=== PATIENT | female | born 1935 | race Caucasian/White ===

== ENCOUNTER 2016-06-28 15:32 | Emergency (ER) | payer MEDICARE, BC ==
[~2016-06-28] VITALS: Ht 160 cm; Wt 72.6 kg
--- NOTE | 2016-06-28 16:46 | ED.ADGEN ---
Past Medical History Past Medical History: Dementia, Hypertension, Other Additional Past Medical Histor: shingles 06/27 Past Surgical History: Cholecystectomy Alcohol Use: None Drug Use: None Adult General Chief Complaint Chief Complaint: HEAT EXPOSURE HPI HPI Patient is a 80 year old female presents emergency department by EMS accompanied by her . Patient was out shopping when she got overheated and felt lightheaded. Bystanders helped her to sit down and suggested that her called ambulance. Her states that she has dementia and consequently he provided most the history. At this time, she is at her baseline mental status and has no complaints. Of note, the patient has only had a cupcake and a cookie to eat by 4:30 PM in the day. Review of Systems Review of Systems Constitutional: Denies fever or chills. [] Eyes: Denies change in visual acuity. [] HENT: Denies nasal congestion or sore throat. [] Respiratory: Denies cough or shortness of breath. [] Cardiovascular: Denies chest pain or edema. [] GI: Denies abdominal pain, nausea, vomiting, bloody stools or diarrhea. [] : Denies dysuria. [] Musculoskeletal: Denies back pain or joint pain. [] Integument: Denies rash. [] Neurologic: Denies headache, focal weakness or sensory changes. [] Endocrine: Denies polyuria or polydipsia. [] Lymphatic: Denies swollen glands. [] Psychiatric: Denies depression or anxiety. [] Allergies Allergies Allergies Coded Allergies Type Severity Reaction Last Updated Verified iodine Allergy Intermediate 06/28/16 Yes Physical Exam Physical Exam Constitutional: Well developed, well nourished, no acute distress, non-toxic appearance. [] HENT: Normocephalic, atraumatic, bilateral external ears normal, oropharynx moist, no oral exudates, nose normal. [] Eyes: PERRLA, EOMI, conjunctiva normal, no discharge. [] Neck: Normal range of motion, no tenderness, supple, no stridor. [] Cardiovascular:Heart rate regular rhythm, no murmur [] Lungs & Thorax: Bilateral breath sounds clear to auscultation [] Abdomen: Bowel sounds normal, soft, no tenderness, no masses, no pulsatile masses. [] Skin: Warm, dry, no erythema, no rash. [] Back: No tenderness, no CVA tenderness. [] Extremities: No tenderness, no cyanosis, no clubbing, ROM intact, no edema. [] Neurologic: Alert and oriented X 2, normal motor function, normal sensory function, no focal deficits noted. [] Psychologic: Affect normal, judgement normal, mood normal. [] Current Patient Data Vital Signs Vital Signs Date Time Temp Pulse Resp B/P Pulse Ox O2 Delivery O2 Flow Rate FiO2 06/28/16 18:30 74 20 142/65 94 06/28/16 15:46 98.9 Room Air 98.9 Lab Values Laboratory Tests Test 06/28/16 16:55 06/28/16 18:17 White Blood Count 11.8x10^3/uL (4.0-11.0) H Red Blood Count 3.92x10^6/uL (3.50-5.40) Hemoglobin 12.3g/dL (12.0-15.5) Hematocrit 37.0% (36.0-47.0) Mean Corpuscular Volume 94fL (79-100) Mean Corpuscular Hemoglobin 31pg (25-35) Mean Corpuscular Hemoglobin Concent 33g/dL (31-37) Red Cell Distribution Width 13.3% (11.5-14.5) Platelet Count 250x10^3/uL (140-400) Neutrophils (%) (Auto) 86% (31-73) H Lymphocytes (%) (Auto) 8% (24-48) L Monocytes (%) (Auto) 4% (0-9) Eosinophils (%) (Auto) 1% (0-3) Basophils (%) (Auto) 1% (0-3) Neutrophils # (Auto) 10.2x10^3uL (1.8-7.7) H Lymphocytes # (Auto) 0.9x10^3/uL (1.0-4.8) L Monocytes # (Auto) 0.5x10^3/uL (0.0-1.1) Eosinophils # (Auto) 0.1x10^3/uL (0.0-0.7) Basophils # (Auto) 0.1x10^3/uL (0.0-0.2) Segmented Neutrophils % 89% (35-66) H Band Neutrophils % 2% (0-9) Lymphocytes % 3% (24-48) L Monocytes % 4% (0-10) Eosinophils % 1% (0-5) Basophils % 1% (0-3) Toxic Granulation Slight Platelet Estimate Adequate (ADEQUATE) Sodium Level 144mmol/L (136-145) Potassium Level 4.6mmol/L (3.5-5.1) Chloride Level 107mmol/L (98-107) Carbon Dioxide Level 26mmol/L (21-32) Anion Gap 11 (6-14) Blood Urea Nitrogen 29mg/dL (7-20) H Creatinine 1.7mg/dL (0.6-1.0) H Estimated GFR (Cockcroft-Gault) 28.8 Glucose Level 123mg/dL (70-99) H Calcium Level 9.6mg/dL (8.5-10.1) Troponin I Quantitative < 0.017ng/mL (0.000-0.055) Urine Collection Type Void Urine Color Yellow Urine Clarity Clear Urine pH 5.5 Urine Specific [place] 1.015 Urine Protein Negativemg/dL (NEG-TRACE) Urine Glucose (UA) Negativemg/dL (NEG) Urine Ketones (Stick) Negativemg/dL (NEG) Urine Blood Negative (NEG) Urine Nitrite Negative (NEG) Urine Bilirubin Negative (NEG) Urine Urobilinogen Dipstick 1.0mg/dL (0.2 mg/dL) Urine Leukocyte Esterase Moderate (NEG) Urine RBC 0/HPF (0-2) Urine WBC 5-10/HPF (0-4) Urine Squamous Epithelial Cells Mod/LPF Urine Bacteria Few/HPF (0-FEW) Urine Hyaline Casts Few/HPF Urine Mucus Mod/LPF Laboratory Tests 06/28/16 16:55 Laboratory Tests 06/28/16 16:55 EKG EKG EKG interpreted by me, normal sinus rhythm, 70 bpm, left axis deviation, no ST segment elevation. [] Radiology/Procedures Radiology/Procedures Chest x-ray interpreted by me, no acute cardiopulmonary process. INDICATION: 80-year-old female with altered mental status, history of dimension hypertension. COMPARISON: None TECHNIQUE: Axial, noncontrast CT images obtained through the head. One or more of the following individualized dose reduction techniques were utilized for this examination: 1. Automated exposure control; 2. Adjustment of the mA and/or kV according to patient size; 3. Use of iterative reconstruction technique. FINDINGS: No acute intracranial process is identified, specifically no acute blood products, midline shift, mass effect or extra-axial fluid collections. Ventricles and sulci appear appropriate for patient's age. Basilar cisterns are maintained. Scattered periventricular and subcortical white matter low attenuation is nonspecific although likely sequelae of chronic microvascular ischemia. The visualized paranasal sinuses are clear. Mastoid air cells are clear. No calvarial fracture is present. Overlying scalp is intact. IMPRESSION: No acute intracranial process. Findings suggestive of chronic microvascular ischemia. Electronically signed by: Lionel Tinoco (Jun 28, 2016 17:19:01) DICTATED and SIGNED BY: LIONEL TINOCO MD DATE: 06/28/16 2379 CC: LIUDMILA HALEY MD; RICHARD UMAÑA MD ~[] Course & Med Decision Making Course & Med Decision Making Pertinent Labs and Imaging studies reviewed. (See chart for details) After eating a meal tray the patient is significantly improved. She was found to have a minor urinary tract infection for which we will treat with Bactrim. Patient was given supportive care instructions, follow-up directions, and return precautions. [] Dragon Disclaimer Dragon Disclaimer This electronic medical record was generated, in whole or in part, using a voice recognition dictation system. LIUDMILA HALEY MD Jun 28, 2016 16:46
[2016-06-28 17:05] LABS: BASO # 0.1 x10^3/uL (0.0-0.2); BASO % 1 % (0-3); EOS % 1 % (0-3); HEMOGLOBIN 12.3 g/dL (12.0-15.5); LYMPH # 0.9 x10^3/uL (1.0-4.8); LYMPH % 8 % (24-48); MEAN CORPUSCULAR HEMOGLOBIN 31 pg (25-35); MEAN CORPUSCULAR HGB CONC 33 g/dL (31-37); MEAN CORPUSCULAR VOLUME 94 fL (79-100); MONO % 4 % (0-9); NEUT % 86 % (31-73); PLATELET COUNT 250 x10^3/uL (140-400); RED BLOOD COUNT 3.92 x10^6/uL (3.50-5.40); RED CELL DISTRIBUTION WIDTH 13.3 % (11.5-14.5); WHITE BLOOD COUNT 11.8 x10^3/uL (4.0-11.0)
[2016-06-28 17:18] LABS: CALCIUM 9.6 mg/dL (8.5-10.1); CREATININE 1.7 mg/dL (0.6-1.0); GFR 28.8; POTASSIUM 4.6 mmol/L (3.5-5.1)
--- NOTE | 2016-06-28 17:20 | RAD ---
INDICATION: 80-year-old female with altered mental status, history of dimension hypertension. COMPARISON: None TECHNIQUE: Axial, noncontrast CT images obtained through the head. One or more of the following individualized dose reduction techniques were utilized for this examination: 1. Automated exposure control; 2. Adjustment of the mA and/or kV according to patient size; 3. Use of iterative reconstruction technique. FINDINGS: No acute intracranial process is identified, specifically no acute blood products, midline shift, mass effect or extra-axial fluid collections. Ventricles and sulci appear appropriate for patient's age. Basilar cisterns are maintained. Scattered periventricular and subcortical white matter low attenuation is nonspecific although likely sequelae of chronic microvascular ischemia. The visualized paranasal sinuses are clear. Mastoid air cells are clear. No calvarial fracture is present. Overlying scalp is intact. IMPRESSION: No acute intracranial process. Findings suggestive of chronic microvascular ischemia. Electronically signed by: Theresa Ledesma (Jun 28, 2016 17:19:01)
[2016-06-28 17:38] LABS: % BASOS 1 % (0-3); % EOS 1 % (0-5)
[2016-06-28 17:42] LABS: PLT ESTIMATE ADEQUATE (ADEQUATE); TOXIC GRANULATION SLIGHT
[2016-06-28 18:27] LABS: BILIRUBIN,URINE NEGATIVE (NEG); GLUCOSE,URINE NEGATIVE (NEG); NITRITE,URINE NEGATIVE (NEG); PH,URINE 5.5; PROTEIN,URINE NEGATIVE (NEG-TRACE)
[2016-06-28 18:30] VITALS: BP 142/65
[2016-06-28 18:36] LABS: BACTERIA,URINE FEW /HPF (0-FEW); RBC,URINE 0 /HPF (0-2)
[2016-06-28 18:37] LABS: SQUAMOUS EPITHELIAL CELL,UR MOD /LPF
[2016-06-28] MEDS ORDERED: SULF1TAB24 PO (18:57)
--- NOTE | 2016-06-29 09:04 | RAD ---
Indication: Altered mental status. Technique: Portable chest radiograph was obtained upright. No comparison is available. Findings: There is elevation of the right hemidiaphragm. The lungs are clear. The heart is not enlarged and there is no heart failure. There are clips in the right upper abdomen. Leads overlie the patient. Impression: Elevated right hemidiaphragm.
--- NOTE | 2016-06-29 11:14 | EKG ---
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
== END 2016-06-28 19:11 | disposition home or self-care (01) ==
LOC: ER 15:32
DX: N39.0 Urinary tract infection, site not specified (principal); R41.82 Altered mental status, unspecified; F03.90 Unspecified dementia, unspecified severity, without behavioral disturbance, psychotic disturbance, mood disturbance, and anxiety; I10 Essential (primary) hypertension; Z91.041 Radiographic dye allergy status
CPT/HCPCS: 36415; 70450; 71010; 80048; 81001; 84484; 85007; 85027; 87086; 93005; 99285-25

== ENCOUNTER 2016-08-10 09:49 | Inpatient (IN) | payer MEDICARE, BC ==
[2016-08-10] VITALS (12 sets, daily range): BP systolic 116–206; BP diastolic 58–98
[~2016-08-10] VITALS: Ht 157.5 cm; Wt 65.5 kg
[~2016-08-10 09:49] MED LIST: DOCU100C5 PO; DONE5TAB7 PO; ESCI5TAB24 PO; FERR-26 PO; LORA10TA3 PO; NIFE30TA17 PO; PANT40TA5 PO; SULF1TAB24 PO
[2016-08-10] MEDS ORDERED: ONDANSETRON PF 4 MG/2 ML VIAL. IV ONE (10:00)
[2016-08-10] MEDS ORDERED: fentaNYL PF VIAL 100 MCG/2 ML VIAL IV ONE ×4 (10:00→13:17)
[2016-08-10] MEDS ORDERED: PANTOPRAZOLE IV PUSH 40 MG VIAL. IVP ONE (10:00)
[2016-08-10 10:09] LABS: BASO # 0.1 x10^3/uL (0.0-0.2); BASO % 1 % (0-3); EOS % 0 % (0-3); HEMATOCRIT 31.5 % (36.0-47.0); HEMOGLOBIN 10.9 g/dL (12.0-15.5); LYMPH # 1.6 x10^3/uL (1.0-4.8); LYMPH % 9 % (24-48); MEAN CORPUSCULAR HEMOGLOBIN 30 pg (25-35); MEAN CORPUSCULAR HGB CONC 35 g/dL (31-37); MEAN CORPUSCULAR VOLUME 88 fL (79-100); MONO % 4 % (0-9); NEUT % 86 % (31-73); PLATELET COUNT 333 x10^3/uL (140-400); RED CELL DISTRIBUTION WIDTH 16.6 % (11.5-14.5); WHITE BLOOD COUNT 17.5 x10^3/uL (4.0-11.0)
--- NOTE | 2016-08-10 10:15 | EKG ---
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
--- NOTE | 2016-08-10 10:17 | PHYS DOC ---
Past Medical History Past Medical History: Dementia, GI Bleed (UPPER with arterial embolization), Hypertension, Other Additional Past Medical Histor: shingles Past Surgical History: Cholecystectomy Alcohol Use: None Drug Use: None Adult General Chief Complaint Chief Complaint: ABDOMINAL PAIN HPI HPI Patient is a 81 year old female with recent UGIB with arterial embolization of bleeding ulcers who presents by EMS for an episode of coffee ground emesis this a.m., weakness, and epigastric pain. Has been home after short rehab stay. Family notes continued black stools since discharge. Family notes minimal oral intake. She has been taking protonix and iron replacement; and stopped the medications she was told to stop. Family notes she is otherwise in normal mental status for her dementia baseline. Family denies NSAID use since home. She denies dyspnea, cough, f/c, dysuria, headache, vision changes, focal weakness. Review of Systems Review of Systems Constitutional: Denies fever or chills [] Eyes: Denies change in visual acuity, redness, or eye pain [] HENT: Denies nasal congestion or sore throat [] Respiratory: Denies cough or shortness of breath [] Cardiovascular: No additional information not addressed in HPI [] GI: Denies constipation or diarrhea [] : Denies dysuria or hematuria [] Musculoskeletal: Denies back pain or joint pain [] Integument: Denies rash or skin lesions [] Neurologic: Denies headache, focal weakness or sensory changes [] Endocrine: Denies polyuria or polydipsia [] Current Medications Current Medications Current Medications Medications (Trade) Dose Ordered Sig/Mara Start Time Stop Time Status Last Admin Dose Admin Fentanyl Citrate 25 mcg 25 mcg 1X ONCE 08/10/16 10:00 08/10/16 10:08 DC 08/10/16 10:23 25 MCG Ondansetron HCl (Zofran) 4 mg 1X ONCE 08/10/16 10:00 08/10/16 10:08 DC 08/10/16 10:22 4 MG Pantoprazole Sodium (Protonix Vial) 40 mg 1X ONCE 08/10/16 10:00 08/10/16 10:08 DC 08/10/16 10:22 40 MG Sodium Chloride (Iv Sodium Chloride 0.9% 500ml Bag) 500 ml @ 500 mls/hr 1X ONCE 08/10/16 10:30 08/10/16 11:29 DC 08/10/16 10:22 500 MLS/HR Allergies Allergies Allergies Coded Allergies Type Severity Reaction Last Updated Verified iodine Allergy Intermediate 07/11/16 Yes Physical Exam Physical Exam Constitutional: Well developed, well nourished, mild distress, non-toxic appearance. [] HENT: Normocephalic, atraumatic, bilateral external ears normal, oropharynx moist, no oral exudates, nose normal. [] Eyes: PERRLA, EOMI. [] Neck: Normal range of motion, no tenderness, supple, no stridor. [] Cardiovascular: Heart rate regular rhythm [] Lungs & Thorax: Bilateral breath sounds clear to auscultation [] Abdomen: Bowel sounds normal, soft, moderate epigastric tenderness, no guarding or rebound, nondistended. Rectal exam with black stool. [] Skin: Warm, dry, no erythema, no rash. [] Back: No tenderness, no CVA tenderness. [] Extremities: No tenderness, ROM intact, no edema. [] Neurologic: Alert and oriented to self and situation, normal motor function, normal sensory function, no focal deficits noted. [] Psychologic: Affect normal, judgement impaired by dementia, mood normal. [] Current Patient Data Vital Signs Vital Signs Date Time Temp Pulse Resp B/P Pulse Ox O2 Delivery O2 Flow Rate FiO2 08/10/16 09:55 98.6 107 18 138/74 98 Room Air 98.6 Lab Values Laboratory Tests Test 08/10/16 09:50 08/10/16 10:10 08/10/16 10:17 White Blood Count 17.5x10^3/uL (4.0-11.0) H Red Blood Count 3.60x10^6/uL (3.50-5.40) Hemoglobin 10.9g/dL (12.0-15.5) L Hematocrit 31.5% (36.0-47.0) L Mean Corpuscular Volume 88fL (79-100) Mean Corpuscular Hemoglobin 30pg (25-35) Mean Corpuscular Hemoglobin Concent 35g/dL (31-37) Red Cell Distribution Width 16.6% (11.5-14.5) H Platelet Count 333x10^3/uL (140-400) Neutrophils (%) (Auto) 86% (31-73) H Lymphocytes (%) (Auto) 9% (24-48) L Monocytes (%) (Auto) 4% (0-9) Eosinophils (%) (Auto) 0% (0-3) Basophils (%) (Auto) 1% (0-3) Neutrophils # (Auto) 15.1x10^3uL (1.8-7.7) H Lymphocytes # (Auto) 1.6x10^3/uL (1.0-4.8) Monocytes # (Auto) 0.7x10^3/uL (0.0-1.1) Eosinophils # (Auto) 0.0x10^3/uL (0.0-0.7) Basophils # (Auto) 0.1x10^3/uL (0.0-0.2) Platelet Estimate Pending Sodium Level 137mmol/L (136-145) Potassium Level 3.7mmol/L (3.5-5.1) Chloride Level 99mmol/L (98-107) Carbon Dioxide Level 26mmol/L (21-32) Anion Gap 12 (6-14) Blood Urea Nitrogen 41mg/dL (7-20) H Creatinine 1.1mg/dL (0.6-1.0) H Estimated GFR (Cockcroft-Gault) 47.6 Glucose Level 144mg/dL (70-99) H Calcium Level 9.2mg/dL (8.5-10.1) Total Bilirubin 0.4mg/dL (0.2-1.0) Direct Bilirubin 0.2mg/dL (0.0-0.2) Aspartate Amino Transferase (AST) 17U/L (15-37) Alanine Aminotransferase (ALT) 13U/L (14-59) L Alkaline Phosphatase 70U/L (46-116) Total Protein 6.3g/dL (6.4-8.2) L Albumin 3.3g/dL (3.4-5.0) L Stool Occult Blood Positive (NEG) Lactic Acid Level 1.6mmol/L (0.4-2.0) Laboratory Tests 08/10/16 09:50 Laboratory Tests 08/10/16 09:50 EKG EKG EKG as interpreted by me as normal sinus rhythm, rate 102, no ST-T changes, normal intervals, no ectopy Course & Med Decision Making Course & Med Decision Making Pertinent Labs and Imaging studies reviewed. (See chart for details) Laboratory evaluation is unremarkable. She will be admitted for upper GI bleed. Given recent procedures, she will be placed in the ICU. GI consultation was placed with Dr. Friend, who wishes she stays NPO for possible endoscopy. Discussed case with Dr. Baird, who will admit. Dragon Disclaimer Dragon Disclaimer This electronic medical record was generated, in whole or in part, using a voice recognition dictation system. Departure Departure Impression: Primary Impression: GIB (gastrointestinal bleeding) Disposition: ADMITTED INPATIENT Condition: GUARDED Referrals: RICHARD UMAÑA MD (PCP) Problem Qualifiers Primary Impression: GIB (gastrointestinal bleeding) GI bleed type/associated pathology: unspecified gastrointestinal hemorrhage type Qualified Code: K92.2 - Gastrointestinal hemorrhage, unspecified Ryan CAGE MD Aug 10, 2016 10:17
[2016-08-10 10:19] LABS: CALCIUM 9.2 mg/dL (8.5-10.1); CREATININE 1.1 mg/dL (0.6-1.0); GFR 47.6; POTASSIUM 3.7 mmol/L (3.5-5.1)
[2016-08-10 10:25] LABS: ALBUMIN 3.3 g/dL (3.4-5.0); DIRECT BILIRUBIN 0.2 mg/dL (0.0-0.2); TOTAL BILIRUBIN 0.4 mg/dL (0.2-1.0); TOTAL PROTEIN 6.3 g/dL (6.4-8.2)
[2016-08-10] MEDS ORDERED: IV NORMAL SALINE 500ML BAG 500 ML IV ONE (10:30)
[2016-08-10] MEDS ORDERED: fentaNYL PF VIAL 100 MCG/2 ML VIAL IV PRN (11:00)
[2016-08-10] MEDS ORDERED: ACETAMINOPHEN 325 MG TABLET. PO PRN (11:00)
[2016-08-10] MEDS ORDERED: ONDANSETRON PF 4 MG/2 ML VIAL. IV PRN (11:00)
[2016-08-10] MEDS ORDERED: POTASSIUM CL 20MEQ D5-0.9%NACL 1,000 ML IV ONE (11:00)
[2016-08-10] MEDS ORDERED: METOCLOPRAMIDE HCL 10 MG/2 ML VIAL. IV STA (11:10)
[2016-08-10] MEDS ORDERED: ERYTHROMYCIN LACT 250 MG in IV NORMAL SALINE 100ML 100 ML IV STA (11:11)
[2016-08-10 11:18] LABS: NEG OBC FOB NEG; POS OBC FOB POS
[2016-08-10] MEDS ORDERED: NIFE30TA17 PO (11:29)
[2016-08-10] MEDS ORDERED: LORA10TA3 PO (11:29)
[2016-08-10 11:56] LABS: BILIRUBIN,URINE NEGATIVE (NEG); GLUCOSE,URINE NEGATIVE (NEG); NITRITE,URINE NEGATIVE (NEG); PH,URINE 5.5; PROTEIN,URINE 30 mg/dL (NEG-TRACE)
[2016-08-10 12:32] LABS: BACTERIA,URINE 0 /HPF (0-FEW); SQUAMOUS EPITHELIAL CELL,UR FEW /LPF
[2016-08-10] MEDS ORDERED: MIDAZOLAM HCL/PF 5 MG/5 ML VIAL. ONE (12:38)
[2016-08-10] MEDS ORDERED: MIDAZOLAM HCL/PF 5 MG/5 ML VIAL. IV ONE ×4 (12:59→13:15)
--- NOTE | 2016-08-10 12:59 | PDOC2 ---
GI CONSULT Reason For Consult: hematemesis this AM ? melena HPI: HPI: History of large DU last month- EGD revealed bleeding but re-bled after epi and clip and went to IR for local embolization with control 3 weeks ago- on iron, so stools have remained dark but unsure if any further active melena-- eating but this am, was nauseated and had episode of coffee ground emesis- Hgb stable at 10 but tachy in ER- no abd pain reported and stool in ER was dark but no obvious melena today, just dark stools History otherwise limited due to dementia PMH: PMH: LArge DU with bleeding last month- EGD and then IR to control Dementia UTI HTN cholecystectomy Social History: Smoke: Quit ALCOHOL: none Drugs: None ROS: GEN: Denies fevers, chills, sweats HEENT: Denies blurred vision, sore throat CV: Denies chest pain RESP: Denies shortness of air, cough GI: Per HPI : Denies hematuria, dysuria ENDO: Denies weight changes NEURO: Denies confusion, dizziness MSK: Denies weakness, joint pain/swelling SKIN: Denies jaundice, pruritus VItals: Vitals: Vital Signs Date Time Temp Pulse Resp B/P Pulse Ox O2 Delivery O2 Flow Rate FiO2 08/10/16 12:46 99 16 99 Nasal Cannula 2 08/10/16 12:12 98.7 206/98 98.7 Labs: Labs: Laboratory Tests Test 08/10/16 09:50 08/10/16 10:10 08/10/16 10:17 08/10/16 11:40 White Blood Count 17.5x10^3/uL (4.0-11.0) Red Blood Count 3.60x10^6/uL (3.50-5.40) Hemoglobin 10.9g/dL (12.0-15.5) Hematocrit 31.5% (36.0-47.0) Mean Corpuscular Volume 88fL (79-100) Mean Corpuscular Hemoglobin 30pg (25-35) Mean Corpuscular Hemoglobin Concent 35g/dL (31-37) Red Cell Distribution Width 16.6% (11.5-14.5) Platelet Count 333x10^3/uL (140-400) Neutrophils (%) (Auto) 86% (31-73) Lymphocytes (%) (Auto) 9% (24-48) Monocytes (%) (Auto) 4% (0-9) Eosinophils (%) (Auto) 0% (0-3) Basophils (%) (Auto) 1% (0-3) Neutrophils # (Auto) 15.1x10^3uL (1.8-7.7) Lymphocytes # (Auto) 1.6x10^3/uL (1.0-4.8) Monocytes # (Auto) 0.7x10^3/uL (0.0-1.1) Eosinophils # (Auto) 0.0x10^3/uL (0.0-0.7) Basophils # (Auto) 0.1x10^3/uL (0.0-0.2) Sodium Level 137mmol/L (136-145) Potassium Level 3.7mmol/L (3.5-5.1) Chloride Level 99mmol/L (98-107) Carbon Dioxide Level 26mmol/L (21-32) Anion Gap 12 (6-14) Blood Urea Nitrogen 41mg/dL (7-20) Creatinine 1.1mg/dL (0.6-1.0) Estimated GFR (Cockcroft-Gault) 47.6 Glucose Level 144mg/dL (70-99) Calcium Level 9.2mg/dL (8.5-10.1) Total Bilirubin 0.4mg/dL (0.2-1.0) Direct Bilirubin 0.2mg/dL (0.0-0.2) Aspartate Amino Transf (AST/SGOT) 17U/L (15-37) Alanine Aminotransferase (ALT/SGPT) 13U/L (14-59) Alkaline Phosphatase 70U/L (46-116) Total Protein 6.3g/dL (6.4-8.2) Albumin 3.3g/dL (3.4-5.0) Stool Occult Blood Positive (NEG) Lactic Acid Level 1.6mmol/L (0.4-2.0) Urine Collection Type Unknown Urine Color Yellow Urine Clarity Clear Urine pH 5.5 Urine Specific [place] 1.020 Urine Protein 30mg/dL (NEG-TRACE) Urine Glucose (UA) Negativemg/dL (NEG) Urine Ketones (Stick) 40mg/dL (NEG) Urine Blood Trace (NEG) Urine Nitrite Negative (NEG) Urine Bilirubin Negative (NEG) Urine Urobilinogen Dipstick 1.0mg/dL (0.2 mg/dL) Urine Leukocyte Esterase Negative (NEG) Urine RBC 1-2/HPF (0-2) Urine WBC 1-4/HPF (0-4) Urine Squamous Epithelial Cells Few/LPF Urine Bacteria 0/HPF (0-FEW) Urine Hyaline Casts Moderate/HPF Urine Mucus Mod/LPF Allergies: Coded Allergies: iodine (Verified Allergy, Intermediate, 07/11/16) Medications: Current Medications Medications (Trade) Dose Ordered Sig/Mara Route PRN Reason Start Time Stop Time Status Last Admin Dose Admin Pantoprazole Sodium (Protonix Vial) 40 mg 1X ONCE IVP 08/10/16 10:00 08/10/16 10:08 DC 08/10/16 10:22 Ondansetron HCl (Zofran) 4 mg 1X ONCE IV 08/10/16 10:00 08/10/16 10:08 DC 08/10/16 10:22 Fentanyl Citrate 25 mcg 25 mcg 1X ONCE IV 08/10/16 10:00 08/10/16 10:08 DC 08/10/16 10:23 Sodium Chloride 500 ml @ 500 mls/hr 1X ONCE IV 08/10/16 10:30 08/10/16 11:29 DC 08/10/16 10:22 Potassium Chloride/Dextrose/ Sod Cl (KCl 20 Meq In D5W-NS) 1,000 ml @ 75 mls/hr 1X ONCE IV 08/10/16 11:00 08/11/16 00:19 08/10/16 11:51 Metoclopramide HCl 5 mg 5 mg 1X STAT IV 08/10/16 11:10 08/10/16 11:29 DC 08/10/16 12:22 Erythromycin Lactobionate/ Sodium Chloride (Erythrocin/Iv Sodium Chloride 0.9% 100ml) 100 ml @ 100 mls/hr ONCE STAT IV 08/10/16 11:11 08/10/16 12:10 DC 08/10/16 12:23 PE: GEN: NAD HEENT: Atraumatic, PERRLA LUNGS: CTAB HEART: RRR, no murmurs ABD: NABS, S/ND/NT, no masses EXTREMITY: No edema SKIN: No rashes, no jaundice NEURO/PSYC- awake denies pain, non focal but limited due to dementia A/P: A/P: Hematemesis this am- HGb and vitals stable but with history of large DU requiring multiple interventions, would proceed with ICU monitoring and urgent EGD Plan- IVF IV PPI Urgent EGD (after IV reglan and IV emycin to clear stomach) today to reassess serial Hgb DAVID AGUILAR MD Aug 10, 2016 12:59
--- NOTE | 2016-08-10 13:34 | PDOC4 ---
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
[2016-08-10] MEDS ORDERED: EPINEPHrine SYRINGE 1 MG/10 ML SYRINGE ONE (13:42)
[2016-08-10] MEDS: PANTOPRAZOLE SODIUM IV 80 MG in IV NORMAL SALINE 100ML 100 ML IV SCH ×2 (13:45→20:09)
[2016-08-10 14:03] LABS: ANISOCYTOSIS SLIGHT; PLT ESTIMATE ADEQUATE (ADEQUATE)
--- NOTE | 2016-08-10 16:24 | PDOC1 ---
History and Physical Past Medical History Cardiovascular: HTN CENTRAL NERVOUS SYSTEM: Dementia Renal/: UTI Past Surgical History Past Surgical History: Cholecystectomy Family History Family History: No Significant Social History Smoke: Quit ALCOHOL: none Drugs: None Current Problem List Problem List Problems Medical Problems: (1) GIB (gastrointestinal bleeding) Status: Acute (2) Upper GI bleed Status: Acute Current Medications Current Medications Current Medications Medications (Trade) Dose Ordered Sig/Mara Start Time Stop Time Status Last Admin Dose Admin Acetaminophen 650 mg 650 mg PRN Q4HRS PRN 08/10/16 11:00 08/11/16 10:59 Epinephrine HCl (Epinephrine Syringe) 1 mg STK-MED ONCE 08/10/16 13:42 08/10/16 13:43 DC Erythromycin Lactobionate/ Sodium Chloride (Erythrocin/Iv Sodium Chloride 0.9% 100ml) 100 ml @ 100 mls/hr ONCE STAT 08/10/16 11:11 08/10/16 12:10 DC 08/10/16 12:23 100 MLS/HR Fentanyl Citrate (Fentanyl 2ml Vial) 100 mcg STK-MED ONCE 08/10/16 13:02 08/10/16 13:03 DC 08/10/16 13:02 25 MCG Fentanyl Citrate 25 mcg 25 mcg 1X ONCE 08/10/16 10:00 08/10/16 10:08 DC 08/10/16 10:23 25 MCG Fentanyl Citrate 100 mcg 100 mcg STK-MED ONCE 08/10/16 13:17 08/10/16 13:19 DC 08/10/16 13:17 25 MCG Metoclopramide HCl 5 mg 5 mg 1X STAT 08/10/16 11:10 08/10/16 11:29 DC 08/10/16 12:22 5 MG Midazolam HCl (Versed) 5 mg STK-MED ONCE 08/10/16 13:15 08/10/16 13:19 DC 08/10/16 13:15 1 MG Ondansetron HCl (Zofran) 4 mg PRN Q8HRS PRN 08/10/16 11:00 08/11/16 10:59 Pantoprazole Sodium (Protonix Vial) 40 mg 1X ONCE 08/10/16 10:00 08/10/16 10:08 DC 08/10/16 10:22 40 MG Pantoprazole Sodium/Sodium Chloride (Protonix Iv/Iv Sodium Chloride 0.9% 100ml) 100 ml @ 10 mls/hr Q10H 08/10/16 13:45 Potassium Chloride/Dextrose/ Sod Cl (KCl 20 Meq In D5W-NS) 1,000 ml @ 75 mls/hr 1X ONCE 08/10/16 11:00 08/11/16 00:19 08/10/16 11:51 75 MLS/HR Sodium Chloride (Iv Sodium Chloride 0.9% 500ml Bag) 500 ml @ 500 mls/hr 1X ONCE 08/10/16 10:30 08/10/16 11:29 DC 08/10/16 10:22 500 MLS/HR Allergies Allergies Allergies Coded Allergies Type Severity Reaction Last Updated Verified iodine Allergy Intermediate 07/11/16 Yes ROS Review of System CONSTITUTIONAL: No fever or chills EYES: No recent changes SKIN: No rash or itching CARDIOVASCULAR: No chest pain, syncope, palpitations, or edema RESPIRATORY: No SOB or cough GASTROINTESTINAL: coffee ground emesis NEUROLOGICAL: No headaches or weakness ENDOCRINE: No cold or heat intolerance GENITOURINARY: No urgency or frequency of urination MUSCULOSKELETAL: No back pain or joint pain LYMPHATICS: No enlarged lymph nodes PSYCHIATRIC: drowsy, seen after procedures, Physical Exam Physical Exam GEN.: No apparent distress. Alert and oriented. sedated, seen after procedure HEENT: Head is normocephalic, atraumatic NECK: Supple. no JVD LUNGS: Clear to auscultation. normal airflow HEART: RRR, S1, S2 present. Peripheral pulses intact ABDOMEN: Soft, nontender. Positive bowel sounds. EXTREMITIES: Without any cyanosis. NEUROLOGIC: drowsy PSYCHIATRIC: SKIN: dry Vitals Vitals Vital Signs Date Time Temp Pulse Resp B/P Pulse Ox O2 Delivery O2 Flow Rate FiO2 08/10/16 16:03 98 16 130/64 97 Nasal Cannula 2.0 08/10/16 15:00 98.8 98.8 Labs Labs Laboratory Tests Test 08/10/16 09:50 08/10/16 10:10 08/10/16 10:17 08/10/16 11:40 White Blood Count 17.5x10^3/uL (4.0-11.0) Red Blood Count 3.60x10^6/uL (3.50-5.40) Hemoglobin 10.9g/dL (12.0-15.5) Hematocrit 31.5% (36.0-47.0) Mean Corpuscular Volume 88fL (79-100) Mean Corpuscular Hemoglobin 30pg (25-35) Mean Corpuscular Hemoglobin Concent 35g/dL (31-37) Red Cell Distribution Width 16.6% (11.5-14.5) Platelet Count 333x10^3/uL (140-400) Neutrophils (%) (Auto) 86% (31-73) Lymphocytes (%) (Auto) 9% (24-48) Monocytes (%) (Auto) 4% (0-9) Eosinophils (%) (Auto) 0% (0-3) Basophils (%) (Auto) 1% (0-3) Neutrophils # (Auto) 15.1x10^3uL (1.8-7.7) Lymphocytes # (Auto) 1.6x10^3/uL (1.0-4.8) Monocytes # (Auto) 0.7x10^3/uL (0.0-1.1) Eosinophils # (Auto) 0.0x10^3/uL (0.0-0.7) Basophils # (Auto) 0.1x10^3/uL (0.0-0.2) Segmented Neutrophils % 88% (35-66) Band Neutrophils % 2% (0-9) Lymphocytes % 8% (24-48) Monocytes % 2% (0-10) Platelet Estimate Adequate (ADEQUATE) Giant Platelets Occ Anisocytosis Slight Sodium Level 137mmol/L (136-145) Potassium Level 3.7mmol/L (3.5-5.1) Chloride Level 99mmol/L (98-107) Carbon Dioxide Level 26mmol/L (21-32) Anion Gap 12 (6-14) Blood Urea Nitrogen 41mg/dL (7-20) Creatinine 1.1mg/dL (0.6-1.0) Estimated GFR (Cockcroft-Gault) 47.6 Glucose Level 144mg/dL (70-99) Calcium Level 9.2mg/dL (8.5-10.1) Total Bilirubin 0.4mg/dL (0.2-1.0) Direct Bilirubin 0.2mg/dL (0.0-0.2) Aspartate Amino Transf (AST/SGOT) 17U/L (15-37) Alanine Aminotransferase (ALT/SGPT) 13U/L (14-59) Alkaline Phosphatase 70U/L (46-116) Total Protein 6.3g/dL (6.4-8.2) Albumin 3.3g/dL (3.4-5.0) Stool Occult Blood Positive (NEG) Lactic Acid Level 1.6mmol/L (0.4-2.0) Urine Collection Type Unknown Urine Color Yellow Urine Clarity Clear Urine pH 5.5 Urine Specific [place] 1.020 Urine Protein 30mg/dL (NEG-TRACE) Urine Glucose (UA) Negativemg/dL (NEG) Urine Ketones (Stick) 40mg/dL (NEG) Urine Blood Trace (NEG) Urine Nitrite Negative (NEG) Urine Bilirubin Negative (NEG) Urine Urobilinogen Dipstick 1.0mg/dL (0.2 mg/dL) Urine Leukocyte Esterase Negative (NEG) Urine RBC 1-2/HPF (0-2) Urine WBC 1-4/HPF (0-4) Urine Squamous Epithelial Cells Few/LPF Urine Bacteria 0/HPF (0-FEW) Urine Hyaline Casts Moderate/HPF Urine Mucus Mod/LPF Laboratory Tests Test 08/10/16 09:50 08/10/16 10:10 08/10/16 10:17 08/10/16 11:40 White Blood Count 17.5x10^3/uL (4.0-11.0) Red Blood Count 3.60x10^6/uL (3.50-5.40) Hemoglobin 10.9g/dL (12.0-15.5) Hematocrit 31.5% (36.0-47.0) Mean Corpuscular Volume 88fL (79-100) Mean Corpuscular Hemoglobin 30pg (25-35) Mean Corpuscular Hemoglobin Concent 35g/dL (31-37) Red Cell Distribution Width 16.6% (11.5-14.5) Platelet Count 333x10^3/uL (140-400) Neutrophils (%) (Auto) 86% (31-73) Lymphocytes (%) (Auto) 9% (24-48) Monocytes (%) (Auto) 4% (0-9) Eosinophils (%) (Auto) 0% (0-3) Basophils (%) (Auto) 1% (0-3) Neutrophils # (Auto) 15.1x10^3uL (1.8-7.7) Lymphocytes # (Auto) 1.6x10^3/uL (1.0-4.8) Monocytes # (Auto) 0.7x10^3/uL (0.0-1.1) Eosinophils # (Auto) 0.0x10^3/uL (0.0-0.7) Basophils # (Auto) 0.1x10^3/uL (0.0-0.2) Segmented Neutrophils % 88% (35-66) Band Neutrophils % 2% (0-9) Lymphocytes % 8% (24-48) Monocytes % 2% (0-10) Platelet Estimate Adequate (ADEQUATE) Giant Platelets Occ Anisocytosis Slight Sodium Level 137mmol/L (136-145) Potassium Level 3.7mmol/L (3.5-5.1) Chloride Level 99mmol/L (98-107) Carbon Dioxide Level 26mmol/L (21-32) Anion Gap 12 (6-14) Blood Urea Nitrogen 41mg/dL (7-20) Creatinine 1.1mg/dL (0.6-1.0) Estimated GFR (Cockcroft-Gault) 47.6 Glucose Level 144mg/dL (70-99) Calcium Level 9.2mg/dL (8.5-10.1) Total Bilirubin 0.4mg/dL (0.2-1.0) Direct Bilirubin 0.2mg/dL (0.0-0.2) Aspartate Amino Transf (AST/SGOT) 17U/L (15-37) Alanine Aminotransferase (ALT/SGPT) 13U/L (14-59) Alkaline Phosphatase 70U/L (46-116) Total Protein 6.3g/dL (6.4-8.2) Albumin 3.3g/dL (3.4-5.0) Stool Occult Blood Positive (NEG) Lactic Acid Level 1.6mmol/L (0.4-2.0) Urine Collection Type Unknown Urine Color Yellow Urine Clarity Clear Urine pH 5.5 Urine Specific [place] 1.020 Urine Protein 30mg/dL (NEG-TRACE) Urine Glucose (UA) Negativemg/dL (NEG) Urine Ketones (Stick) 40mg/dL (NEG) Urine Blood Trace (NEG) Urine Nitrite Negative (NEG) Urine Bilirubin Negative (NEG) Urine Urobilinogen Dipstick 1.0mg/dL (0.2 mg/dL) Urine Leukocyte Esterase Negative (NEG) Urine RBC 1-2/HPF (0-2) Urine WBC 1-4/HPF (0-4) Urine Squamous Epithelial Cells Few/LPF Urine Bacteria 0/HPF (0-FEW) Urine Hyaline Casts Moderate/HPF Urine Mucus Mod/LPF VTE Prophylaxis Ordered VTE Prophylaxis Devices: Contraindicated VTE Pharmacological Prophylaxi: No DYLAN BARRAGAN MD Aug 10, 2016 16:24
--- NOTE | 2016-08-10 16:48 | OP ---
DATE OF SURGERY: 08/10/2016 PRIMARY PHYSICIAN: Dr. Jose Neely. PREOPERATIVE DIAGNOSIS: Hematemesis, vomiting. POSTOPERATIVE DIAGNOSES: Erosive esophagitis, gastritis, retained fluid in the stomach, post-bulbar ulcer with stricture, and recent bleeding. A preprocedural evaluation and timeout were performed. Consultation was performed. She was in the ICU under monitoring. SEDATION: Fentanyl 75 mcg, slow IV push; Versed 4 mg, slow IV push. COMPLICATIONS: None. BLOOD LOSS: Minimal. DESCRIPTION OF PROCEDURE: The patient was placed in left lateral decubitus position. A bite block was inserted. After appropriate sedation, Olympus video endoscope was passed through the oropharynx into the esophagus, stomach, and duodenum. The esophagus revealed grade 3 esophagitis with some friability, but no active bleeding. The stomach revealed about 500 mL of retained fluid and food. There was some old blood, but no active bleeding was noted. This was suctioned free. The stomach revealed gastritis in the antrum, but no discrete ulcerations and no bleeding source. The duodenal bulb was intubated and was fairly normal, but in the postbulbar region, at 3 o'clock, there was a 20-mm deep ulcer consistent with previous ulcer, but apparently smaller. There were a couple of pigmented areas in the base of the ulcer but were not bleeding. However, the rim of the ulcer was oozing blood, and then post-ulcer, there was a stricture in the post-bulbar region just beyond the ulcer. This was present in the past and likely may represent some post-embolization narrowing, and the scope could not pass through this area safely due to the bleeding. The lumen appeared about 7 mm, and looking beyond this area, there was no bleeding in this area noted. The area was irrigated and then epinephrine was injected 4 mL in the areas that were oozing. Then, cautery was applied with 25 daley using a gold probe with good control of the bleeding sites. The area was irrigated, and the scope was pulled into the stomach. Additional fluid was suctioned free. There was some limitation in evaluation of the fundus of the stomach, but the rest of the evaluation was complete. Air was removed. The scope was removed. The patient tolerated the procedure well. IMPRESSION: 1. Erosive esophagitis likely related to reflux from retained fluids in the stomach. 2. Retained fluids approximately 500 mL in the stomach with some coffee-grounds and gastritis. 3. Post-bulbar ulcer with recent bleeding, and beyond this area in the second portion of the duodenum, a stricture was noted approximately 7 mm in diameter. PLAN: 1. Monitor closely in the ICU. 2. Based on her present findings and her history of early satiety and fullness, a liquid diet only would be recommended over the next few days while monitoring her clinical situation. 3. I appreciate the opportunity. DAVID AGUILAR MD DR: MARITZA/ramona JOB#: [id number] / [id number]
[2016-08-10 18:06] LABS: HEMATOCRIT 27.3 % (36.0-47.0); HEMOGLOBIN 9.1 g/dL (12.0-15.5); RED BLOOD COUNT 3.03 x10^6/uL (3.50-5.40); RED CELL DISTRIBUTION WIDTH 16.9 % (11.5-14.5); WHITE BLOOD COUNT 19.2 x10^3/uL (4.0-11.0)
--- NOTE | 2016-08-10 22:25 | HP ---
ADMIT DATE: 08/10/2016 CHIEF COMPLAINT: Coffee-ground emesis. HISTORY OF PRESENT ILLNESS: An 81-year-old female patient with a prior history of large duodenal ulcer nearly 1 month ago, at that time she had EGD and IR-guided embolization, presented back to the ER with complains of coffee-ground emesis from this morning. At the present time of presentation, the patient's hemoglobin was stable at 10. Due to acuity of condition, the patient was emergently taken to the OR and she had cauterization of the ulcer in the duodenal bulb. I have seen the patient in the critical care unit. Currently, she is drowsy after the procedure. Denies any hematemesis. Feeling comfortable. PAST MEDICAL HISTORY: Large duodenal ulcer with bleeding, dementia, ____, hypertension. PAST SURGICAL HISTORY: Cholecystectomy. PERSONAL HISTORY: No smoking, no alcohol, no drug abuse. ALLERGIES: IRON. FAMILY HISTORY: Unknown to the patient. REVIEW OF SYSTEMS: Please see my electronic H and P. PHYSICAL EXAMINATION: Please see my electronic H and P. LABORATORY FINDINGS: Sodium 137, potassium 3.7, chloride is 99, carbon dioxide is 26, gap 12, BUN 41, creatinine is 1.1, GFR 47.6, glucose is 144. Albumin is 3.3. Urine: Nitrites negative. Leukocyte esterase negative. Hematology: Hemoglobin is 10.9, WBC 17.5, platelets 333, and neutrophils 15.1. IMAGING STUDIES: Not done. ASSESSMENT: 1. Abdominal pain with coffee-ground emesis, suspected upper gastrointestinal bleeding. 2. Leukocytosis. 3. Dementia. 4. Hypertension. 5. Mild elevation of BUN. PLAN: 1. The patient has been admitted to the critical care unit for close monitoring and she had procedure, EGD, on an emergent basis by Dr. Friend. She received epinephrine injection for controlling bleeding in the posterior duodenal ulcer at 3 o'clock position. Post-procedure, she has been admitted to the ICU and continued to monitor her vitals and hemoglobin. We will monitor hemoglobin every 6 hours and she is receiving IV Protonix with potassium. Monitor WBC in a.m. 2. No DVT prophylaxis. 3. N.p.o. for now. 4. Home medications: We will verify and resume from a.m. DYLAN BARRAGAN MD DR: EZRA/ramona JOB#: [id number] / [id number] CIRA
[2016-08-11] VITALS (24 sets, daily range): BP systolic 6–158; BP diastolic 49–78
[2016-08-11] MEDS: PANTOPRAZOLE SODIUM IV 80 MG in IV NORMAL SALINE 100ML 100 ML IV SCH (04:05)
[2016-08-11 04:19] LABS: HEMATOCRIT 22.5 % (36.0-47.0); HEMOGLOBIN 7.5 g/dL (12.0-15.5); RED BLOOD COUNT 2.48 x10^6/uL (3.50-5.40); RED CELL DISTRIBUTION WIDTH 17.2 % (11.5-14.5); WHITE BLOOD COUNT 12.5 x10^3/uL (4.0-11.0)
--- NOTE | 2016-08-11 11:13 | PDOC ---
PROGRESS NOTES Chief Complaint Chief Complaint CC: Upper GI bleed HTN Dementia UTI History of Present Illness History of Present Illness Past 24 hours: Ms. 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 She is laying comfortably in bed with no complaints. Vital signs are stable. Vitals Vitals Vital Signs Date Time Temp Pulse Resp B/P Pulse Ox O2 Delivery O2 Flow Rate FiO2 08/11/16 10:00 78 16 138/70 96 Room Air 08/11/16 09:00 98.6 98.6 08/10/16 17:00 2.0 Physical Exam General: Alert, No acute distress Heart: Regular rate, Normal S1, Normal S2 Lungs: Clear Abdomen: Normal bowel sounds, Soft Extremities: No cyanosis, Normal pulses Skin: No rashes, No breakdown Labs LABS Laboratory Tests Test 08/10/16 11:40 08/10/16 17:55 08/11/16 03:25 Urine Collection Type Unknown Urine Color Yellow Urine Clarity Clear Urine pH 5.5 Urine Specific [place] 1.020 Urine Protein 30mg/dL (NEG-TRACE) Urine Glucose (UA) Negativemg/dL (NEG) Urine Ketones (Stick) 40mg/dL (NEG) Urine Blood Trace (NEG) Urine Nitrite Negative (NEG) Urine Bilirubin Negative (NEG) Urine Urobilinogen Dipstick 1.0mg/dL (0.2 mg/dL) Urine Leukocyte Esterase Negative (NEG) Urine RBC 1-2/HPF (0-2) Urine WBC 1-4/HPF (0-4) Urine Squamous Epithelial Cells Few/LPF Urine Bacteria 0/HPF (0-FEW) Urine Hyaline Casts Moderate/HPF Urine Mucus Mod/LPF White Blood Count 19.2x10^3/uL (4.0-11.0) 12.5x10^3/uL (4.0-11.0) Red Blood Count 3.03x10^6/uL (3.50-5.40) 2.48x10^6/uL (3.50-5.40) Hemoglobin 9.1g/dL (12.0-15.5) 7.5g/dL (12.0-15.5) Hematocrit 27.3% (36.0-47.0) 22.5% (36.0-47.0) Mean Corpuscular Volume 90fL (79-100) 91fL (79-100) Mean Corpuscular Hemoglobin 30pg (25-35) 30pg (25-35) Mean Corpuscular Hemoglobin Concent 33g/dL (31-37) 34g/dL (31-37) Red Cell Distribution Width 16.9% (11.5-14.5) 17.2% (11.5-14.5) Platelet Count 245x10^3/uL (140-400) 209x10^3/uL (140-400) Review of Systems Review of Systems General: weakness GI: abdominal pain Assessment and Plan Assessmemt and Plan Problems Medical Problems: (1) GIB (gastrointestinal bleeding) Status: Acute (2) Upper GI bleed Status: Acute Upper GI bleed HTN Dementia UTI Plan: 1. NPO per GI 2. Continue IVF and IV PPI 3. Continue IV antibiotics 4. Check labs in AM 5. Consult PT/OT 6. Subspecialty input appreciated Problems: Comment Review of Relevant I have reviewed the following items jose luis (where applicable) has been applied. Labs Laboratory Tests Test 08/10/16 09:50 08/10/16 10:10 08/10/16 10:17 08/10/16 11:40 White Blood Count 17.5x10^3/uL (4.0-11.0) Red Blood Count 3.60x10^6/uL (3.50-5.40) Hemoglobin 10.9g/dL (12.0-15.5) Hematocrit 31.5% (36.0-47.0) Mean Corpuscular Volume 88fL (79-100) Mean Corpuscular Hemoglobin 30pg (25-35) Mean Corpuscular Hemoglobin Concent 35g/dL (31-37) Red Cell Distribution Width 16.6% (11.5-14.5) Platelet Count 333x10^3/uL (140-400) Neutrophils (%) (Auto) 86% (31-73) Lymphocytes (%) (Auto) 9% (24-48) Monocytes (%) (Auto) 4% (0-9) Eosinophils (%) (Auto) 0% (0-3) Basophils (%) (Auto) 1% (0-3) Neutrophils # (Auto) 15.1x10^3uL (1.8-7.7) Lymphocytes # (Auto) 1.6x10^3/uL (1.0-4.8) Monocytes # (Auto) 0.7x10^3/uL (0.0-1.1) Eosinophils # (Auto) 0.0x10^3/uL (0.0-0.7) Basophils # (Auto) 0.1x10^3/uL (0.0-0.2) Segmented Neutrophils % 88% (35-66) Band Neutrophils % 2% (0-9) Lymphocytes % 8% (24-48) Monocytes % 2% (0-10) Platelet Estimate Adequate (ADEQUATE) Giant Platelets Occ Anisocytosis Slight Sodium Level 137mmol/L (136-145) Potassium Level 3.7mmol/L (3.5-5.1) Chloride Level 99mmol/L (98-107) Carbon Dioxide Level 26mmol/L (21-32) Anion Gap 12 (6-14) Blood Urea Nitrogen 41mg/dL (7-20) Creatinine 1.1mg/dL (0.6-1.0) Estimated GFR (Cockcroft-Gault) 47.6 Glucose Level 144mg/dL (70-99) Calcium Level 9.2mg/dL (8.5-10.1) Total Bilirubin 0.4mg/dL (0.2-1.0) Direct Bilirubin 0.2mg/dL (0.0-0.2) Aspartate Amino Transf (AST/SGOT) 17U/L (15-37) Alanine Aminotransferase (ALT/SGPT) 13U/L (14-59) Alkaline Phosphatase 70U/L (46-116) Total Protein 6.3g/dL (6.4-8.2) Albumin 3.3g/dL (3.4-5.0) Stool Occult Blood Positive (NEG) Lactic Acid Level 1.6mmol/L (0.4-2.0) Urine Collection Type Unknown Urine Color Yellow Urine Clarity Clear Urine pH 5.5 Urine Specific [place] 1.020 Urine Protein 30mg/dL (NEG-TRACE) Urine Glucose (UA) Negativemg/dL (NEG) Urine Ketones (Stick) 40mg/dL (NEG) Urine Blood Trace (NEG) Urine Nitrite Negative (NEG) Urine Bilirubin Negative (NEG) Urine Urobilinogen Dipstick 1.0mg/dL (0.2 mg/dL) Urine Leukocyte Esterase Negative (NEG) Urine RBC 1-2/HPF (0-2) Urine WBC 1-4/HPF (0-4) Urine Squamous Epithelial Cells Few/LPF Urine Bacteria 0/HPF (0-FEW) Urine Hyaline Casts Moderate/HPF Urine Mucus Mod/LPF Test 08/10/16 17:55 08/11/16 03:25 White Blood Count 19.2x10^3/uL (4.0-11.0) 12.5x10^3/uL (4.0-11.0) Red Blood Count 3.03x10^6/uL (3.50-5.40) 2.48x10^6/uL (3.50-5.40) Hemoglobin 9.1g/dL (12.0-15.5) 7.5g/dL (12.0-15.5) Hematocrit 27.3% (36.0-47.0) 22.5% (36.0-47.0) Mean Corpuscular Volume 90fL (79-100) 91fL (79-100) Mean Corpuscular Hemoglobin 30pg (25-35) 30pg (25-35) Mean Corpuscular Hemoglobin Concent 33g/dL (31-37) 34g/dL (31-37) Red Cell Distribution Width 16.9% (11.5-14.5) 17.2% (11.5-14.5) Platelet Count 245x10^3/uL (140-400) 209x10^3/uL (140-400) Laboratory Tests Test 08/10/16 11:40 08/10/16 17:55 08/11/16 03:25 Urine Collection Type Unknown Urine Color Yellow Urine Clarity Clear Urine pH 5.5 Urine Specific [place] 1.020 Urine Protein 30mg/dL (NEG-TRACE) Urine Glucose (UA) Negativemg/dL (NEG) Urine Ketones (Stick) 40mg/dL (NEG) Urine Blood Trace (NEG) Urine Nitrite Negative (NEG) Urine Bilirubin Negative (NEG) Urine Urobilinogen Dipstick 1.0mg/dL (0.2 mg/dL) Urine Leukocyte Esterase Negative (NEG) Urine RBC 1-2/HPF (0-2) Urine WBC 1-4/HPF (0-4) Urine Squamous Epithelial Cells Few/LPF Urine Bacteria 0/HPF (0-FEW) Urine Hyaline Casts Moderate/HPF Urine Mucus Mod/LPF White Blood Count 19.2x10^3/uL (4.0-11.0) 12.5x10^3/uL (4.0-11.0) Red Blood Count 3.03x10^6/uL (3.50-5.40) 2.48x10^6/uL (3.50-5.40) Hemoglobin 9.1g/dL (12.0-15.5) 7.5g/dL (12.0-15.5) Hematocrit 27.3% (36.0-47.0) 22.5% (36.0-47.0) Mean Corpuscular Volume 90fL (79-100) 91fL (79-100) Mean Corpuscular Hemoglobin 30pg (25-35) 30pg (25-35) Mean Corpuscular Hemoglobin Concent 33g/dL (31-37) 34g/dL (31-37) Red Cell Distribution Width 16.9% (11.5-14.5) 17.2% (11.5-14.5) Platelet Count 245x10^3/uL (140-400) 209x10^3/uL (140-400) Medications Current Medications Pantoprazole Sodium (Protonix Vial) 40 mg 1X ONCE IVP Last administered on 10:22; Start 08/10/16 at 10:00; Stop 08/10/16 at 10:08; Status DC Ondansetron HCl (Zofran) 4 mg 1X ONCE IV Last administered on 08/10/16 10:22 ; Start 08/10/16 at 10:00; Stop 08/10/16 at 10:08; Status DC Fentanyl Citrate 25 mcg 25 mcg 1X ONCE IV Last administered on 08/10/16 10:23 ; Start 08/10/16 at 10:00; Stop 08/10/16 at 10:08; Status DC Sodium Chloride (Iv Sodium Chloride 0.9% 500ml Bag) 500 ml @ 500 mls/hr 1X ONCE IV Last administered on 08/10/16 10:22; Start 08/10/16 at 10:30; Stop at 11:29; Status DC Ondansetron HCl (Zofran) 4 mg PRN Q8HRS PRN IV NAUSEA/VOMITING; Start 08/10/16 at 11:00; Stop 08/11/16 at 10:59; Status DC Fentanyl Citrate (Fentanyl 2ml Vial) 50 mcg PRN Q2HR PRN IV PAIN; Start at 11:00; Stop 08/11/16 at 10:59; Status DC Acetaminophen 650 mg 650 mg PRN Q4HRS PRN PO FEVER; Start 08/10/16 at 11:00; Stop 08/11/16 at 10:59; Status DC Potassium Chloride/Dextrose/ Sod Cl (KCl 20 Meq In D5W-NS) 1,000 ml @ 75 mls/ hr 1X ONCE IV Last administered on 08/10/16 11:51; Start 08/10/16 at 11:00; Stop 08/11/16 at 00:19; Status DC Metoclopramide HCl 5 mg 5 mg 1X STAT IV Last administered on 08/10/16 12:22; Start 08/10/16 at 11:10; Stop 08/10/16 at 11:29; Status DC Erythromycin Lactobionate/ Sodium Chloride (Erythrocin/Iv Sodium Chloride 0.9% 100ml) 100 ml @ 100 mls/hr ONCE STAT IV Last administered on 08/10/16 12:23 ; Start 08/10/16 at 11:11; Stop 08/10/16 at 12:10; Status DC Midazolam HCl (Versed) 5 mg STK-MED ONCE .ROUTE ; Start 08/10/16 at 12:38; Stop 08/10/16 at 12:39; Status DC Midazolam HCl (Versed) 5 mg STK-MED ONCE IV Last administered on 08/10/16 12: 59; Start 08/10/16 at 12:59; Stop 08/10/16 at 13:03; Status DC Fentanyl Citrate (Fentanyl 2ml Vial) 100 mcg STK-MED ONCE IV Last administered on 08/10/16 13:00; Start 08/10/16 at 13:00; Stop 08/10/16 at 13:03; Status DC Midazolam HCl (Versed) 5 mg STK-MED ONCE IV Last administered on 08/10/16 13: 01; Start 08/10/16 at 13:01; Stop 08/10/16 at 13:03; Status DC Fentanyl Citrate (Fentanyl 2ml Vial) 100 mcg STK-MED ONCE IV Last administered on 08/10/16 13:02; Start 08/10/16 at 13:02; Stop 08/10/16 at 13:03; Status DC Midazolam HCl (Versed) 5 mg STK-MED ONCE IV Last administered on 08/10/16 13: 03; Start 08/10/16 at 13:03; Stop 08/10/16 at 13:04; Status DC Midazolam HCl (Versed) 5 mg STK-MED ONCE IV Last administered on 08/10/16 13: 15; Start 08/10/16 at 13:15; Stop 08/10/16 at 13:19; Status DC Fentanyl Citrate 100 mcg 100 mcg STK-MED ONCE IV Last administered on 13:17; Start 08/10/16 at 13:17; Stop 08/10/16 at 13:19; Status DC Pantoprazole Sodium/Sodium Chloride (Protonix Iv/Iv Sodium Chloride 0.9% 100ml) 100 ml @ 10 mls/hr Q10H IV Last administered on 08/11/16 04:05; Start at 13:45 Epinephrine HCl (Epinephrine Syringe) 1 mg STK-MED ONCE .ROUTE ; Start 08/10/16 at 13:42; Stop 08/10/16 at 13:43; Status DC Active Scripts Active Docusate Sodium 100 Mg Capsule 100 Mg PO PRN DAILY PRN Pantoprazole Sodium 40 Mg Tablet.dr 40 Mg PO BIDAC Reported Nifedipine Er (Nifedipine) 30 Mg Tab.er.24 30 Mg PO DAILY Loratadine 10 Mg Tablet 10 Mg PO DAILY Lexapro (Escitalopram Oxalate) 5 Mg Tablet 5 Mg PO DAILY Vitals/I & O Vital Sign - Last 24 Hours 08/10/16 08/10/16 08/10/16 08/10/16 11:20 12:00 12:11 12:12 Temp 98.7 98.7 98.7 98.7 Pulse 78 98 97 Resp 16 16 12 B/P 136/87 206/98 206/98 Pulse Ox 99 98 98 O2 Delivery Room Air Nasal Cannula Room Air Room Air O2 Flow Rate 2.0 08/10/16 08/10/16 08/10/16 08/10/16 12:46 12:59 13:03 13:07 Pulse 99 113 120 Resp 16 16 16 16 Pulse Ox 99 100 100 100 O2 Delivery Nasal Cannula Nasal Cannula Nasal Cannula Nasal Cannula O2 Flow Rate 2 08/10/16 08/10/16 08/10/16 08/10/16 13:08 13:10 13:19 13:20 Temp 98.7 98.7 Pulse 113 119 125 119 Resp 16 16 16 16 B/P 198/83 Pulse Ox 100 99 97 97 O2 Delivery Nasal Cannula Nasal Cannula Nasal Cannula Nasal Cannula O2 Flow Rate 2 2 2 08/10/16 08/10/16 08/10/16 08/10/16 13:29 13:30 13:32 14:00 Pulse 115 117 115 110 Resp 16 16 16 16 B/P 173/75 161/67 167/73 141/72 Pulse Ox 97 98 96 98 O2 Delivery Nasal Cannula Room Air Nasal Cannula Room Air O2 Flow Rate 2 08/10/16 08/10/16 08/10/16 08/10/16 15:00 16:00 16:03 17:00 Temp 98.8 98.8 Pulse 99 98 88 Resp 16 16 B/P 151/68 130/64 136/61 Pulse Ox 97 97 99 O2 Delivery Nasal Cannula Nasal Cannula Nasal Cannula Nasal Cannula O2 Flow Rate 2.0 2.0 2.0 2.0 08/10/16 08/10/16 08/10/16 08/10/16 18:00 20:01 20:10 21:02 Temp 99.2 99.2 Pulse 100 96 98 Resp 20 20 B/P 148/58 140/67 140/65 Pulse Ox 97 99 96 O2 Delivery Room Air Room Air Room Air Room Air 08/10/16 08/10/16 08/10/16 08/11/16 22:05 23:18 23:21 00:12 Temp 98.9 98.9 Pulse 100 87 89 Resp 20 20 B/P 116/61 121/63 101/49 Pulse Ox 97 97 96 O2 Delivery Room Air Room Air Room Air Room Air 08/11/16 08/11/16 08/11/16 08/11/16 01:07 02:10 03:02 04:05 Pulse 89 78 90 Resp 20 20 20 B/P 107/50 106/52 6/56 Pulse Ox 96 98 96 O2 Delivery Room Air Room Air Room Air Room Air 08/11/16 08/11/16 08/11/16 08/11/16 04:06 05:38 06:04 07:01 Temp 98.6 98.6 Pulse 85 79 81 80 Resp 20 20 20 20 B/P 111/60 123/57 114/56 142/62 Pulse Ox 97 97 96 97 O2 Delivery Room Air Room Air Room Air Room Air 08/11/16 08/11/16 08/11/16 08/11/16 08:00 08:00 09:00 10:00 Temp 98.6 98.6 Pulse 78 74 78 Resp 18 16 16 B/P 130/60 143/63 138/70 Pulse Ox 96 96 96 O2 Delivery Room Air Room Air Room Air Intake and Output 08/10/16 08/10/16 08/11/16 15:00 23:00 07:00 Intake Total 500 ml 278 ml 688 ml Output Total 0 ml 0 ml 0 ml Balance 500 ml 278 ml 688 ml CORONA ACOSTA III DO August 11, 2016 11:12
--- NOTE | 2016-08-11 11:54 | PDOC ---
Subjective: Subjective: Feeling better, no emesis/bleeding or pain. Objective: Objective: RN asking if okay to transfer out of ICU. Vital Signs: Vital Signs Date Time Temp Pulse Resp B/P Pulse Ox O2 Delivery O2 Flow Rate FiO2 08/11/16 11:00 78 14 155/75 98 Room Air 08/11/16 09:00 98.6 98.6 08/10/16 17:00 2.0 Labs: Laboratory Tests Test 08/10/16 17:55 08/11/16 03:25 White Blood Count 19.2x10^3/uL 12.5x10^3/uL Red Blood Count 3.03x10^6/uL 2.48x10^6/uL Hemoglobin 9.1g/dL 7.5g/dL Hematocrit 27.3% 22.5% Mean Corpuscular Volume 90fL 91fL Mean Corpuscular Hemoglobin 30pg 30pg Mean Corpuscular Hemoglobin Concent 33g/dL 34g/dL Red Cell Distribution Width 16.9% 17.2% Platelet Count 245x10^3/uL 209x10^3/uL Imaging: EGD 08/10/1617 grade 3 esophagitis retained food and fluid with old blood in stomach (500 cc) - gastritis duodenum- post bulbar large ulcer at 3 o'clock about 20 mm - oozing around ulcer and several pigmented areas not bleeding in base - post ulcer stricture - lumen about 7 mm- unable to pass scope but no bleeding seen beyond this area epi [id number] 4 cc - cautery also carefully applied - appeared to control bleeding PE: GEN: NAD LUNGS: CTAB anteriorly HEART: RRR ABD: S/ND/NT NEURO/PSYCH: A & O 3 A/P: Coffee ground emesis - no recurrence Esophagitis Duodenal ulcer w/ stricture -s/p epi, cautery 08/10 -IR embol last month -NPO in ICU on PPI drip Anemia -Hgb 10.9 to 9.1 to 7.5 -- Continue same for now, Dr. Alfonso will see this afternoon. ASHWINI WEBB August 11, 2016 11:54
[2016-08-12] VITALS (23 sets, daily range): BP systolic 103–147; BP diastolic 45–72
[2016-08-12] MEDS: PANTOPRAZOLE SODIUM IV 80 MG in IV NORMAL SALINE 100ML 100 ML IV SCH ×3 (00:05→21:47)
[2016-08-12 05:09] LABS: BASO # 0.1 x10^3/uL (0.0-0.2); BASO % 1 % (0-3); EOS % 2 % (0-3); HEMOGLOBIN 7.3 g/dL (12.0-15.5); LYMPH # 1.6 x10^3/uL (1.0-4.8); LYMPH % 14 % (24-48); MEAN CORPUSCULAR HEMOGLOBIN 30 pg (25-35); MEAN CORPUSCULAR HGB CONC 33 g/dL (31-37); MEAN CORPUSCULAR VOLUME 91 fL (79-100); MONO % 8 % (0-9); NEUT % 76 % (31-73); PLATELET COUNT 206 x10^3/uL (140-400); RED BLOOD COUNT 2.41 x10^6/uL (3.50-5.40); RED CELL DISTRIBUTION WIDTH 17.1 % (11.5-14.5); WHITE BLOOD COUNT 11.6 x10^3/uL (4.0-11.0)
[2016-08-12 05:34] LABS: CALCIUM 8.2 mg/dL (8.5-10.1); CREATININE 0.9 mg/dL (0.6-1.0); GFR 59.9; POTASSIUM 3.4 mmol/L (3.5-5.1)
--- NOTE | 2016-08-12 11:26 | PDOC ---
Subjective: Subjective: No pain, no bleeding. concerned that she hasn't had anything to eat in a few days. Objective: Objective: Transferred to reg floor. Per RN, has continued w/ just "sips and chips." Vital Signs: Vital Signs Date Time Temp Pulse Resp B/P Pulse Ox O2 Delivery O2 Flow Rate FiO2 08/12/16 10:33 Room Air 08/12/16 08:07 98.0 80 16 103/48 97 2.0 98.0 Labs: Laboratory Tests Test 08/12/16 04:40 08/12/16 04:45 White Blood Count 11.6x10^3/uL Red Blood Count 2.41x10^6/uL Hemoglobin 7.3g/dL Hematocrit 22.0% Mean Corpuscular Volume 91fL Mean Corpuscular Hemoglobin 30pg Mean Corpuscular Hemoglobin Concent 33g/dL Red Cell Distribution Width 17.1% Platelet Count 206x10^3/uL Neutrophils (%) (Auto) 76% Lymphocytes (%) (Auto) 14% Monocytes (%) (Auto) 8% Eosinophils (%) (Auto) 2% Basophils (%) (Auto) 1% Neutrophils # (Auto) 8.8x10^3uL Lymphocytes # (Auto) 1.6x10^3/uL Monocytes # (Auto) 0.9x10^3/uL Eosinophils # (Auto) 0.2x10^3/uL Basophils # (Auto) 0.1x10^3/uL Sodium Level 138mmol/L Potassium Level 3.4mmol/L Chloride Level 106mmol/L Carbon Dioxide Level 26mmol/L Anion Gap 6 Blood Urea Nitrogen 36mg/dL Creatinine 0.9mg/dL Estimated GFR (Cockcroft-Gault) 59.9 Glucose Level 90mg/dL Calcium Level 8.2mg/dL PE: GEN: NAD LUNGS: CTAB anteriorly HEART: RRR ABD: S/ND/NT NEURO/PSYCH: A & O 3 A/P: Duodenal ulcer w/ stricture, esophagitis -s/p epi, cautery 08/10 -IR embol last month -sips of clears, PPI drip Anemia -Hgb in 7s -- Will review w/ Dr. Alfonso re: diet, ?continue PPI drip. ASHWINI WEBB August 12, 2016 11:26
--- NOTE | 2016-08-12 12:49 | PDOC ---
PROGRESS NOTES Chief Complaint Chief Complaint CC: Upper GI bleed HTN Dementia UTI History of Present Illness History of Present Illness Ms. Payan was laying comfortably in bed with no complaints. She is now on regular floor. Denies any bleeding. We discussed care with her and who was at bedside. Vital signs are stable. Vitals Vitals Vital Signs Date Time Temp Pulse Resp B/P Pulse Ox O2 Delivery O2 Flow Rate FiO2 08/12/16 10:44 97.7 85 18 143/59 97 Room Air 97.7 08/12/16 08:07 2.0 Physical Exam General: Alert, No acute distress Heart: Regular rate, Normal S1, Normal S2 Lungs: Clear Abdomen: Normal bowel sounds, Soft Extremities: No cyanosis, Normal pulses Skin: No rashes, No breakdown Labs LABS Laboratory Tests Test 08/12/16 04:40 08/12/16 04:45 White Blood Count 11.6x10^3/uL (4.0-11.0) Red Blood Count 2.41x10^6/uL (3.50-5.40) Hemoglobin 7.3g/dL (12.0-15.5) Hematocrit 22.0% (36.0-47.0) Mean Corpuscular Volume 91fL (79-100) Mean Corpuscular Hemoglobin 30pg (25-35) Mean Corpuscular Hemoglobin Concent 33g/dL (31-37) Red Cell Distribution Width 17.1% (11.5-14.5) Platelet Count 206x10^3/uL (140-400) Neutrophils (%) (Auto) 76% (31-73) Lymphocytes (%) (Auto) 14% (24-48) Monocytes (%) (Auto) 8% (0-9) Eosinophils (%) (Auto) 2% (0-3) Basophils (%) (Auto) 1% (0-3) Neutrophils # (Auto) 8.8x10^3uL (1.8-7.7) Lymphocytes # (Auto) 1.6x10^3/uL (1.0-4.8) Monocytes # (Auto) 0.9x10^3/uL (0.0-1.1) Eosinophils # (Auto) 0.2x10^3/uL (0.0-0.7) Basophils # (Auto) 0.1x10^3/uL (0.0-0.2) Sodium Level 138mmol/L (136-145) Potassium Level 3.4mmol/L (3.5-5.1) Chloride Level 106mmol/L (98-107) Carbon Dioxide Level 26mmol/L (21-32) Anion Gap 6 (6-14) Blood Urea Nitrogen 36mg/dL (7-20) Creatinine 0.9mg/dL (0.6-1.0) Estimated GFR (Cockcroft-Gault) 59.9 Glucose Level 90mg/dL (70-99) Calcium Level 8.2mg/dL (8.5-10.1) Review of Systems Review of Systems General: complains of weakness GI: Denies nausea, vomiting, hematemesis, diarrhea, constipation, rectal bleeding Assessment and Plan Assessmemt and Plan Problems Medical Problems: (1) GIB (gastrointestinal bleeding) Status: Acute (2) Upper GI bleed Status: Acute Assessment: Upper GI bleed HTN Dementia UTI Plan: -Transfuse with 2 units PRBCs due to Hg of 7.3 -Trending Hg/Hct -Continue monitoring for any bleeding -Recheck AM labs -Advance diet if GI agrees -Subspecialty input appreciated Problems: Comment Review of Relevant I have reviewed the following items jose luis (where applicable) has been applied. Labs Laboratory Tests Test 08/10/16 17:55 08/11/16 03:25 08/11/16 06:30 08/12/16 04:40 White Blood Count 19.2x10^3/uL (4.0-11.0) 12.5x10^3/uL (4.0-11.0) 11.6x10^3/uL (4.0-11.0) Red Blood Count 3.03x10^6/uL (3.50-5.40) 2.48x10^6/uL (3.50-5.40) 2.41x10^6/uL (3.50-5.40) Hemoglobin 9.1g/dL (12.0-15.5) 7.5g/dL (12.0-15.5) 7.3g/dL (12.0-15.5) Hematocrit 27.3% (36.0-47.0) 22.5% (36.0-47.0) 22.0% (36.0-47.0) Mean Corpuscular Volume 90fL (79-100) 91fL (79-100) 91fL (79-100) Mean Corpuscular Hemoglobin 30pg (25-35) 30pg (25-35) 30pg (25-35) Mean Corpuscular Hemoglobin Concent 33g/dL (31-37) 34g/dL (31-37) 33g/dL (31-37) Red Cell Distribution Width 16.9% (11.5-14.5) 17.2% (11.5-14.5) 17.1% (11.5-14.5) Platelet Count 245x10^3/uL (140-400) 209x10^3/uL (140-400) 206x10^3/uL (140-400) Nasal Screen MRSA (PCR) Negative (Negative) Neutrophils (%) (Auto) 76% (31-73) Lymphocytes (%) (Auto) 14% (24-48) Monocytes (%) (Auto) 8% (0-9) Eosinophils (%) (Auto) 2% (0-3) Basophils (%) (Auto) 1% (0-3) Neutrophils # (Auto) 8.8x10^3uL (1.8-7.7) Lymphocytes # (Auto) 1.6x10^3/uL (1.0-4.8) Monocytes # (Auto) 0.9x10^3/uL (0.0-1.1) Eosinophils # (Auto) 0.2x10^3/uL (0.0-0.7) Basophils # (Auto) 0.1x10^3/uL (0.0-0.2) Test 08/12/16 04:45 Sodium Level 138mmol/L (136-145) Potassium Level 3.4mmol/L (3.5-5.1) Chloride Level 106mmol/L (98-107) Carbon Dioxide Level 26mmol/L (21-32) Anion Gap 6 (6-14) Blood Urea Nitrogen 36mg/dL (7-20) Creatinine 0.9mg/dL (0.6-1.0) Estimated GFR (Cockcroft-Gault) 59.9 Glucose Level 90mg/dL (70-99) Calcium Level 8.2mg/dL (8.5-10.1) Laboratory Tests Test 08/12/16 04:40 08/12/16 04:45 White Blood Count 11.6x10^3/uL (4.0-11.0) Red Blood Count 2.41x10^6/uL (3.50-5.40) Hemoglobin 7.3g/dL (12.0-15.5) Hematocrit 22.0% (36.0-47.0) Mean Corpuscular Volume 91fL (79-100) Mean Corpuscular Hemoglobin 30pg (25-35) Mean Corpuscular Hemoglobin Concent 33g/dL (31-37) Red Cell Distribution Width 17.1% (11.5-14.5) Platelet Count 206x10^3/uL (140-400) Neutrophils (%) (Auto) 76% (31-73) Lymphocytes (%) (Auto) 14% (24-48) Monocytes (%) (Auto) 8% (0-9) Eosinophils (%) (Auto) 2% (0-3) Basophils (%) (Auto) 1% (0-3) Neutrophils # (Auto) 8.8x10^3uL (1.8-7.7) Lymphocytes # (Auto) 1.6x10^3/uL (1.0-4.8) Monocytes # (Auto) 0.9x10^3/uL (0.0-1.1) Eosinophils # (Auto) 0.2x10^3/uL (0.0-0.7) Basophils # (Auto) 0.1x10^3/uL (0.0-0.2) Sodium Level 138mmol/L (136-145) Potassium Level 3.4mmol/L (3.5-5.1) Chloride Level 106mmol/L (98-107) Carbon Dioxide Level 26mmol/L (21-32) Anion Gap 6 (6-14) Blood Urea Nitrogen 36mg/dL (7-20) Creatinine 0.9mg/dL (0.6-1.0) Estimated GFR (Cockcroft-Gault) 59.9 Glucose Level 90mg/dL (70-99) Calcium Level 8.2mg/dL (8.5-10.1) Medications Current Medications Pantoprazole Sodium (Protonix Vial) 40 mg 1X ONCE IVP Last administered on 10:22; Start 08/10/16 at 10:00; Stop 08/10/16 at 10:08; Status DC Ondansetron HCl (Zofran) 4 mg 1X ONCE IV Last administered on 08/10/16 10:22 ; Start 08/10/16 at 10:00; Stop 08/10/16 at 10:08; Status DC Fentanyl Citrate 25 mcg 25 mcg 1X ONCE IV Last administered on 08/10/16 10:23 ; Start 08/10/16 at 10:00; Stop 08/10/16 at 10:08; Status DC Sodium Chloride (Iv Sodium Chloride 0.9% 500ml Bag) 500 ml @ 500 mls/hr 1X ONCE IV Last administered on 08/10/16 10:22; Start 08/10/16 at 10:30; Stop at 11:29; Status DC Ondansetron HCl (Zofran) 4 mg PRN Q8HRS PRN IV NAUSEA/VOMITING; Start 08/10/16 at 11:00; Stop 08/11/16 at 10:59; Status DC Fentanyl Citrate (Fentanyl 2ml Vial) 50 mcg PRN Q2HR PRN IV PAIN; Start at 11:00; Stop 08/11/16 at 10:59; Status DC Acetaminophen 650 mg 650 mg PRN Q4HRS PRN PO FEVER; Start 08/10/16 at 11:00; Stop 08/11/16 at 10:59; Status DC Potassium Chloride/Dextrose/ Sod Cl (KCl 20 Meq In D5W-NS) 1,000 ml @ 75 mls/ hr 1X ONCE IV Last administered on 08/10/16 11:51; Start 08/10/16 at 11:00; Stop 08/11/16 at 00:19; Status DC Metoclopramide HCl 5 mg 5 mg 1X STAT IV Last administered on 08/10/16 12:22; Start 08/10/16 at 11:10; Stop 08/10/16 at 11:29; Status DC Erythromycin Lactobionate/ Sodium Chloride (Erythrocin/Iv Sodium Chloride 0.9% 100ml) 100 ml @ 100 mls/hr ONCE STAT IV Last administered on 08/10/16 12:23 ; Start 08/10/16 at 11:11; Stop 08/10/16 at 12:10; Status DC Midazolam HCl (Versed) 5 mg STK-MED ONCE .ROUTE ; Start 08/10/16 at 12:38; Stop 08/10/16 at 12:39; Status DC Midazolam HCl (Versed) 5 mg STK-MED ONCE IV Last administered on 08/10/16 12: 59; Start 08/10/16 at 12:59; Stop 08/10/16 at 13:03; Status DC Fentanyl Citrate (Fentanyl 2ml Vial) 100 mcg STK-MED ONCE IV Last administered on 08/10/16 13:00; Start 08/10/16 at 13:00; Stop 08/10/16 at 13:03; Status DC Midazolam HCl (Versed) 5 mg STK-MED ONCE IV Last administered on 08/10/16 13: 01; Start 08/10/16 at 13:01; Stop 08/10/16 at 13:03; Status DC Fentanyl Citrate (Fentanyl 2ml Vial) 100 mcg STK-MED ONCE IV Last administered on 08/10/16 13:02; Start 08/10/16 at 13:02; Stop 08/10/16 at 13:03; Status DC Midazolam HCl (Versed) 5 mg STK-MED ONCE IV Last administered on 08/10/16 13: 03; Start 08/10/16 at 13:03; Stop 08/10/16 at 13:04; Status DC Midazolam HCl (Versed) 5 mg STK-MED ONCE IV Last administered on 08/10/16 13: 15; Start 08/10/16 at 13:15; Stop 08/10/16 at 13:19; Status DC Fentanyl Citrate 100 mcg 100 mcg STK-MED ONCE IV Last administered on 13:17; Start 08/10/16 at 13:17; Stop 08/10/16 at 13:19; Status DC Pantoprazole Sodium/Sodium Chloride (Protonix Iv/Iv Sodium Chloride 0.9% 100ml) 100 ml @ 10 mls/hr Q10H IV Last administered on 08/12/16 00:05; Start at 13:45 Epinephrine HCl (Epinephrine Syringe) 1 mg STK-MED ONCE .ROUTE ; Start 08/10/16 at 13:42; Stop 08/10/16 at 13:43; Status DC Active Scripts Active Docusate Sodium 100 Mg Capsule 100 Mg PO PRN DAILY PRN Pantoprazole Sodium 40 Mg Tablet.dr 40 Mg PO BIDAC Reported Nifedipine Er (Nifedipine) 30 Mg Tab.er.24 30 Mg PO DAILY Loratadine 10 Mg Tablet 10 Mg PO DAILY Lexapro (Escitalopram Oxalate) 5 Mg Tablet 5 Mg PO DAILY Vitals/I & O Vital Sign - Last 24 Hours 08/11/16 08/11/16 08/11/16 08/11/16 13:00 14:00 15:00 16:00 Pulse 92 90 86 Resp 16 18 16 B/P 139/61 132/58 135/64 Pulse Ox 96 96 96 O2 Delivery Room Air Room Air Room Air Room Air 08/11/16 08/11/16 08/11/16 08/11/16 16:00 17:00 18:00 19:25 Temp 98.5 98.5 Pulse 90 90 104 85 Resp 24 B/P 141/62 131/56 121/64 147/68 Pulse Ox 96 96 97 97 O2 Delivery Room Air Room Air Room Air Room Air 08/11/16 08/11/16 08/11/16 08/11/16 20:00 20:00 21:00 22:00 Temp 98.7 98.0 98.0 98.7 98.0 98.0 Pulse 86 85 84 Resp 22 20 22 B/P 146/78 151/77 138/63 Pulse Ox 97 98 96 O2 Delivery Room Air Room Air Room Air Room Air 08/11/16 08/11/16 08/12/16 08/12/16 23:00 23:59 00:00 01:00 Temp 98.0 97.8 98.0 98.0 97.8 98.0 Pulse 83 81 80 Resp 20 18 18 B/P 154/77 128/63 133/66 Pulse Ox 97 97 98 O2 Delivery Room Air Room Air Room Air Room Air 08/12/16 08/12/16 08/12/16 08/12/16 02:00 03:00 04:00 04:00 Temp 98.2 98.0 98.0 98.2 98.0 98.0 Pulse 77 81 80 Resp 20 22 B/P 147/72 127/58 136/55 Pulse Ox 97 98 96 O2 Delivery Room Air Room Air Room Air Room Air 08/12/16 08/12/16 08/12/16 08/12/16 05:00 06:00 07:10 08:04 Temp 98.0 98.0 98.0 98.0 98.0 98.0 Pulse 89 80 80 Resp 22 14 B/P 147/62 121/54 121/54 Pulse Ox 97 97 97 O2 Delivery Room Air Room Air Room Air Room Air O2 Flow Rate 2.0 08/12/16 08/12/16 08/12/16 08:07 10:33 10:44 Temp 98.0 97.7 98.0 97.7 Pulse 80 85 Resp 16 18 B/P 103/48 143/59 Pulse Ox 97 97 O2 Delivery Room Air Room Air Room Air O2 Flow Rate 2.0 Intake and Output 08/11/16 08/11/16 08/12/16 15:00 23:00 07:00 Intake Total 0 ml 450 ml 150 ml Output Total 0 ml 800 ml Balance 0 ml 450 ml -650 ml CORONA ACOSTA III DO August 12, 2016 12:49
[2016-08-13] VITALS (10 sets, daily range): BP systolic 86–153; BP diastolic 51–66
[2016-08-13 04:24] LABS: BASO % 0 % (0-3); EOS % 1 % (0-3); HEMATOCRIT 25.8 % (36.0-47.0); HEMOGLOBIN 8.8 g/dL (12.0-15.5); LYMPH # 1.4 x10^3/uL (1.0-4.8); LYMPH % 12 % (24-48); MEAN CORPUSCULAR HEMOGLOBIN 30 pg (25-35); MEAN CORPUSCULAR HGB CONC 34 g/dL (31-37); MEAN CORPUSCULAR VOLUME 89 fL (79-100); MONO % 8 % (0-9); NEUT % 79 % (31-73); PLATELET COUNT 166 x10^3/uL (140-400); RED CELL DISTRIBUTION WIDTH 16.8 % (11.5-14.5); WHITE BLOOD COUNT 11.5 x10^3/uL (4.0-11.0)
[2016-08-13 04:30] LABS: CREATININE 0.9 mg/dL (0.6-1.0); GFR 59.9; POTASSIUM 3.4 mmol/L (3.5-5.1)
[2016-08-13] MEDS: PANTOPRAZOLE SODIUM IV 80 MG in IV NORMAL SALINE 100ML 100 ML IV SCH ×3 (07:42→21:13)
[2016-08-13] MEDS ORDERED: POTASSIUM CHLORIDE 20 MEQ TABLET.ER. PO ONE (08:45)
[2016-08-13] MEDS ORDERED: DOCUSATE SODIUM 100 MG CAPSULE. PO PRN (08:45)
[2016-08-13] MEDS: ESCITALOPRAM 5 MG TABLET. PO SCH (09:42)
--- NOTE | 2016-08-13 09:50 | PDOC ---
G I PROGRESS NOTE Subjective No complaints. Not interested in eating; can't tell if early satiety or just doesn't like the food. No emesis I'm aware of. Physical Exam Lungs clear. RRR w/murmur. Abdomen soft, not tender nor distended. Review of Relevant I have reviewed the following items jose luis (where applicable) has been applied. Labs Laboratory Tests Test 08/12/16 04:40 08/12/16 04:45 08/13/16 03:05 White Blood Count 11.6x10^3/uL (4.0-11.0) 11.5x10^3/uL (4.0-11.0) Red Blood Count 2.41x10^6/uL (3.50-5.40) 2.90x10^6/uL (3.50-5.40) Hemoglobin 7.3g/dL (12.0-15.5) 8.8g/dL (12.0-15.5) Hematocrit 22.0% (36.0-47.0) 25.8% (36.0-47.0) Mean Corpuscular Volume 91fL (79-100) 89fL (79-100) Mean Corpuscular Hemoglobin 30pg (25-35) 30pg (25-35) Mean Corpuscular Hemoglobin Concent 33g/dL (31-37) 34g/dL (31-37) Red Cell Distribution Width 17.1% (11.5-14.5) 16.8% (11.5-14.5) Platelet Count 206x10^3/uL (140-400) 166x10^3/uL (140-400) Neutrophils (%) (Auto) 76% (31-73) 79% (31-73) Lymphocytes (%) (Auto) 14% (24-48) 12% (24-48) Monocytes (%) (Auto) 8% (0-9) 8% (0-9) Eosinophils (%) (Auto) 2% (0-3) 1% (0-3) Basophils (%) (Auto) 1% (0-3) 0% (0-3) Neutrophils # (Auto) 8.8x10^3uL (1.8-7.7) 9.1x10^3uL (1.8-7.7) Lymphocytes # (Auto) 1.6x10^3/uL (1.0-4.8) 1.4x10^3/uL (1.0-4.8) Monocytes # (Auto) 0.9x10^3/uL (0.0-1.1) 0.9x10^3/uL (0.0-1.1) Eosinophils # (Auto) 0.2x10^3/uL (0.0-0.7) 0.1x10^3/uL (0.0-0.7) Basophils # (Auto) 0.1x10^3/uL (0.0-0.2) 0.0x10^3/uL (0.0-0.2) Sodium Level 138mmol/L (136-145) 138mmol/L (136-145) Potassium Level 3.4mmol/L (3.5-5.1) 3.4mmol/L (3.5-5.1) Chloride Level 106mmol/L (98-107) 106mmol/L (98-107) Carbon Dioxide Level 26mmol/L (21-32) 25mmol/L (21-32) Anion Gap 6 (6-14) 7 (6-14) Blood Urea Nitrogen 36mg/dL (7-20) 34mg/dL (7-20) Creatinine 0.9mg/dL (0.6-1.0) 0.9mg/dL (0.6-1.0) Estimated GFR (Cockcroft-Gault) 59.9 59.9 Glucose Level 90mg/dL (70-99) 85mg/dL (70-99) Calcium Level 8.2mg/dL (8.5-10.1) 8.0mg/dL (8.5-10.1) Laboratory Tests Test 08/13/16 03:05 White Blood Count 11.5x10^3/uL (4.0-11.0) Red Blood Count 2.90x10^6/uL (3.50-5.40) Hemoglobin 8.8g/dL (12.0-15.5) Hematocrit 25.8% (36.0-47.0) Mean Corpuscular Volume 89fL (79-100) Mean Corpuscular Hemoglobin 30pg (25-35) Mean Corpuscular Hemoglobin Concent 34g/dL (31-37) Red Cell Distribution Width 16.8% (11.5-14.5) Platelet Count 166x10^3/uL (140-400) Neutrophils (%) (Auto) 79% (31-73) Lymphocytes (%) (Auto) 12% (24-48) Monocytes (%) (Auto) 8% (0-9) Eosinophils (%) (Auto) 1% (0-3) Basophils (%) (Auto) 0% (0-3) Neutrophils # (Auto) 9.1x10^3uL (1.8-7.7) Lymphocytes # (Auto) 1.4x10^3/uL (1.0-4.8) Monocytes # (Auto) 0.9x10^3/uL (0.0-1.1) Eosinophils # (Auto) 0.1x10^3/uL (0.0-0.7) Basophils # (Auto) 0.0x10^3/uL (0.0-0.2) Sodium Level 138mmol/L (136-145) Potassium Level 3.4mmol/L (3.5-5.1) Chloride Level 106mmol/L (98-107) Carbon Dioxide Level 25mmol/L (21-32) Anion Gap 7 (6-14) Blood Urea Nitrogen 34mg/dL (7-20) Creatinine 0.9mg/dL (0.6-1.0) Estimated GFR (Cockcroft-Gault) 59.9 Glucose Level 85mg/dL (70-99) Calcium Level 8.0mg/dL (8.5-10.1) Hemoglobin up after transfusion. Medications Current Medications Pantoprazole Sodium (Protonix Vial) 40 mg 1X ONCE IVP Last administered on 10:22; Start 08/10/16 at 10:00; Stop 08/10/16 at 10:08; Status DC Ondansetron HCl (Zofran) 4 mg 1X ONCE IV Last administered on 08/10/16 10:22 ; Start 08/10/16 at 10:00; Stop 08/10/16 at 10:08; Status DC Fentanyl Citrate 25 mcg 25 mcg 1X ONCE IV Last administered on 08/10/16 10:23 ; Start 08/10/16 at 10:00; Stop 08/10/16 at 10:08; Status DC Sodium Chloride (Iv Sodium Chloride 0.9% 500ml Bag) 500 ml @ 500 mls/hr 1X ONCE IV Last administered on 08/10/16 10:22; Start 08/10/16 at 10:30; Stop at 11:29; Status DC Ondansetron HCl (Zofran) 4 mg PRN Q8HRS PRN IV NAUSEA/VOMITING; Start 08/10/16 at 11:00; Stop 08/11/16 at 10:59; Status DC Fentanyl Citrate (Fentanyl 2ml Vial) 50 mcg PRN Q2HR PRN IV PAIN; Start at 11:00; Stop 08/11/16 at 10:59; Status DC Acetaminophen 650 mg 650 mg PRN Q4HRS PRN PO FEVER; Start 08/10/16 at 11:00; Stop 08/11/16 at 10:59; Status DC Potassium Chloride/Dextrose/ Sod Cl (KCl 20 Meq In D5W-NS) 1,000 ml @ 75 mls/ hr 1X ONCE IV Last administered on 08/10/16 11:51; Start 08/10/16 at 11:00; Stop 08/11/16 at 00:19; Status DC Metoclopramide HCl 5 mg 5 mg 1X STAT IV Last administered on 08/10/16 12:22; Start 08/10/16 at 11:10; Stop 08/10/16 at 11:29; Status DC Erythromycin Lactobionate/ Sodium Chloride (Erythrocin/Iv Sodium Chloride 0.9% 100ml) 100 ml @ 100 mls/hr ONCE STAT IV Last administered on 08/10/16 12:23 ; Start 08/10/16 at 11:11; Stop 08/10/16 at 12:10; Status DC Midazolam HCl (Versed) 5 mg STK-MED ONCE .ROUTE ; Start 08/10/16 at 12:38; Stop 08/10/16 at 12:39; Status DC Midazolam HCl (Versed) 5 mg STK-MED ONCE IV Last administered on 08/10/16 12: 59; Start 08/10/16 at 12:59; Stop 08/10/16 at 13:03; Status DC Fentanyl Citrate (Fentanyl 2ml Vial) 100 mcg STK-MED ONCE IV Last administered on 08/10/16 13:00; Start 08/10/16 at 13:00; Stop 08/10/16 at 13:03; Status DC Midazolam HCl (Versed) 5 mg STK-MED ONCE IV Last administered on 08/10/16 13: 01; Start 08/10/16 at 13:01; Stop 08/10/16 at 13:03; Status DC Fentanyl Citrate (Fentanyl 2ml Vial) 100 mcg STK-MED ONCE IV Last administered on 08/10/16 13:02; Start 08/10/16 at 13:02; Stop 08/10/16 at 13:03; Status DC Midazolam HCl (Versed) 5 mg STK-MED ONCE IV Last administered on 08/10/16 13: 03; Start 08/10/16 at 13:03; Stop 08/10/16 at 13:04; Status DC Midazolam HCl (Versed) 5 mg STK-MED ONCE IV Last administered on 08/10/16 13: 15; Start 08/10/16 at 13:15; Stop 08/10/16 at 13:19; Status DC Fentanyl Citrate 100 mcg 100 mcg STK-MED ONCE IV Last administered on 13:17; Start 08/10/16 at 13:17; Stop 08/10/16 at 13:19; Status DC Pantoprazole Sodium/Sodium Chloride (Protonix Iv/Iv Sodium Chloride 0.9% 100ml) 100 ml @ 10 mls/hr Q10H IV Last administered on 08/13/16 07:42; Start at 13:45 Epinephrine HCl (Epinephrine Syringe) 1 mg STK-MED ONCE .ROUTE ; Start 08/10/16 at 13:42; Stop 08/10/16 at 13:43; Status DC Potassium Chloride (Klor-Con) 40 meq 1X ONCE PO Last administered on 08/13/16 09:42; Start 08/13/16 at 08:45; Stop 08/13/16 at 08:46; Status DC Docusate Sodium (Colace) 100 mg PRN DAILY PRN PO CONSTIPATION Last administered on 08/13/16 09:42; Start 08/13/16 at 08:45 Escitalopram Oxalate (Lexapro) 5 mg DAILY PO Last administered on 08/13/16t 09: 42; Start 08/13/16 at 09:00 Active Scripts Active Docusate Sodium 100 Mg Capsule 100 Mg PO PRN DAILY PRN Pantoprazole Sodium 40 Mg Tablet.dr 40 Mg PO BIDAC Reported Nifedipine Er (Nifedipine) 30 Mg Tab.er.24 30 Mg PO DAILY Loratadine 10 Mg Tablet 10 Mg PO DAILY Lexapro (Escitalopram Oxalate) 5 Mg Tablet 5 Mg PO DAILY Vitals/I & O Vital Sign - Last 24 Hours 08/12/16 08/12/16 08/12/16 08/12/16 10:33 10:44 14:32 16:36 Temp 97.7 97.9 97.9 97.7 97.9 97.9 Pulse 85 92 88 Resp 18 B/P 143/59 114/54 133/46 Pulse Ox 97 99 O2 Delivery Room Air Room Air Room Air Room Air 08/12/16 08/12/16 08/12/16 08/12/16 16:54 17:12 18:04 19:00 Temp 97.9 98.4 98.8 98.4 97.9 98.4 98.8 98.4 Pulse 88 91 88 96 Resp 18 18 B/P 133/46 144/49 140/57 141/60 Pulse Ox 95 O2 Delivery Room Air 08/12/16 08/12/16 08/12/16 08/12/16 19:17 20:00 20:08 21:42 Temp 98.1 98.8 98.1 98.1 98.8 98.1 Pulse 90 91 90 Resp 18 B/P 134/45 137/57 134/51 O2 Delivery Room Air 08/12/16 08/12/16 08/12/16 08/12/16 21:53 22:53 23:00 23:53 Temp 98.2 98.8 98.8 97.9 98.2 98.8 98.8 97.9 Pulse 90 92 92 85 Resp 18 18 18 18 B/P 136/61 141/58 141/58 135/57 Pulse Ox 97 O2 Delivery Room Air 08/13/16 08/13/16 08/13/16 08/13/16 00:39 03:00 07:00 08:00 Temp 97.8 98.2 98.1 97.8 98.2 98.1 Pulse 88 78 83 Resp 18 18 18 B/P 136/58 140/64 150/60 Pulse Ox 96 97 O2 Delivery Room Air Room Air Room Air Intake and Output 08/12/16 08/12/16 08/13/16 15:00 23:00 07:00 Intake Total 927 ml 220 ml Output Total 500 ml Balance 927 ml -280 ml Problem List Problems Medical Problems: (1) GIB (gastrointestinal bleeding) Status: Acute (2) Upper GI bleed Status: Acute Assessment DU with bleeding, moderate stricture. No evidence for active bleeding at this point. Plan of Care: Continue current Tx, Mgmt Plan of Care Note Would stay at current diet and see how she does today. MAINE HENRIQUEZ MD August 13, 2016 09:50
--- NOTE | 2016-08-13 12:35 | PDOC ---
PROGRESS NOTES Chief Complaint Chief Complaint 1. DUOdenum GIB: s/p dual scopes 07/11 and embolization on 07/12, this time got cautery and epi 08/10 2. Anemia: acute 3. Dehydration 4. GELA, vasomotor 5. Uremia: 2/2 UGIB. 6. Dementia: moderate 7. HTN: on nifedipine at home 8. SIRS, no sepsis 9. hypokalemia plan: fu with gi on protonix drip full liquid hold nifedipine replete K LABS daily History of Present Illness History of Present Illness no BM hb stable post 2 uPRBC ON 08/12 NO ABD PAIN Vitals Vitals Vital Signs Date Time Temp Pulse Resp B/P Pulse Ox O2 Delivery O2 Flow Rate FiO2 08/13/16 11:00 98.1 89 18 153/66 96 Room Air 98.1 08/12/16 08:07 2.0 Physical Exam General: Alert, No acute distress Heart: Regular rate, Normal S1, Normal S2 Lungs: Clear Abdomen: Normal bowel sounds, Soft Extremities: No cyanosis, Normal pulses Skin: No rashes, No breakdown Labs LABS Laboratory Tests Test 08/13/16 03:05 White Blood Count 11.5x10^3/uL (4.0-11.0) Red Blood Count 2.90x10^6/uL (3.50-5.40) Hemoglobin 8.8g/dL (12.0-15.5) Hematocrit 25.8% (36.0-47.0) Mean Corpuscular Volume 89fL (79-100) Mean Corpuscular Hemoglobin 30pg (25-35) Mean Corpuscular Hemoglobin Concent 34g/dL (31-37) Red Cell Distribution Width 16.8% (11.5-14.5) Platelet Count 166x10^3/uL (140-400) Neutrophils (%) (Auto) 79% (31-73) Lymphocytes (%) (Auto) 12% (24-48) Monocytes (%) (Auto) 8% (0-9) Eosinophils (%) (Auto) 1% (0-3) Basophils (%) (Auto) 0% (0-3) Neutrophils # (Auto) 9.1x10^3uL (1.8-7.7) Lymphocytes # (Auto) 1.4x10^3/uL (1.0-4.8) Monocytes # (Auto) 0.9x10^3/uL (0.0-1.1) Eosinophils # (Auto) 0.1x10^3/uL (0.0-0.7) Basophils # (Auto) 0.0x10^3/uL (0.0-0.2) Sodium Level 138mmol/L (136-145) Potassium Level 3.4mmol/L (3.5-5.1) Chloride Level 106mmol/L (98-107) Carbon Dioxide Level 25mmol/L (21-32) Anion Gap 7 (6-14) Blood Urea Nitrogen 34mg/dL (7-20) Creatinine 0.9mg/dL (0.6-1.0) Estimated GFR (Cockcroft-Gault) 59.9 Glucose Level 85mg/dL (70-99) Calcium Level 8.0mg/dL (8.5-10.1) Review of Systems Review of Systems no fever, chills, sob or chest pain Assessment and Plan Assessmemt and Plan Problems Medical Problems: (1) GIB (gastrointestinal bleeding) Status: Acute (2) Upper GI bleed Status: Acute Problems: Comment Review of Relevant I have reviewed the following items jose luis (where applicable) has been applied. Labs Laboratory Tests Test 08/12/16 04:40 08/12/16 04:45 08/13/16 03:05 White Blood Count 11.6x10^3/uL (4.0-11.0) 11.5x10^3/uL (4.0-11.0) Red Blood Count 2.41x10^6/uL (3.50-5.40) 2.90x10^6/uL (3.50-5.40) Hemoglobin 7.3g/dL (12.0-15.5) 8.8g/dL (12.0-15.5) Hematocrit 22.0% (36.0-47.0) 25.8% (36.0-47.0) Mean Corpuscular Volume 91fL (79-100) 89fL (79-100) Mean Corpuscular Hemoglobin 30pg (25-35) 30pg (25-35) Mean Corpuscular Hemoglobin Concent 33g/dL (31-37) 34g/dL (31-37) Red Cell Distribution Width 17.1% (11.5-14.5) 16.8% (11.5-14.5) Platelet Count 206x10^3/uL (140-400) 166x10^3/uL (140-400) Neutrophils (%) (Auto) 76% (31-73) 79% (31-73) Lymphocytes (%) (Auto) 14% (24-48) 12% (24-48) Monocytes (%) (Auto) 8% (0-9) 8% (0-9) Eosinophils (%) (Auto) 2% (0-3) 1% (0-3) Basophils (%) (Auto) 1% (0-3) 0% (0-3) Neutrophils # (Auto) 8.8x10^3uL (1.8-7.7) 9.1x10^3uL (1.8-7.7) Lymphocytes # (Auto) 1.6x10^3/uL (1.0-4.8) 1.4x10^3/uL (1.0-4.8) Monocytes # (Auto) 0.9x10^3/uL (0.0-1.1) 0.9x10^3/uL (0.0-1.1) Eosinophils # (Auto) 0.2x10^3/uL (0.0-0.7) 0.1x10^3/uL (0.0-0.7) Basophils # (Auto) 0.1x10^3/uL (0.0-0.2) 0.0x10^3/uL (0.0-0.2) Sodium Level 138mmol/L (136-145) 138mmol/L (136-145) Potassium Level 3.4mmol/L (3.5-5.1) 3.4mmol/L (3.5-5.1) Chloride Level 106mmol/L (98-107) 106mmol/L (98-107) Carbon Dioxide Level 26mmol/L (21-32) 25mmol/L (21-32) Anion Gap 6 (6-14) 7 (6-14) Blood Urea Nitrogen 36mg/dL (7-20) 34mg/dL (7-20) Creatinine 0.9mg/dL (0.6-1.0) 0.9mg/dL (0.6-1.0) Estimated GFR (Cockcroft-Gault) 59.9 59.9 Glucose Level 90mg/dL (70-99) 85mg/dL (70-99) Calcium Level 8.2mg/dL (8.5-10.1) 8.0mg/dL (8.5-10.1) Laboratory Tests Test 08/13/16 03:05 White Blood Count 11.5x10^3/uL (4.0-11.0) Red Blood Count 2.90x10^6/uL (3.50-5.40) Hemoglobin 8.8g/dL (12.0-15.5) Hematocrit 25.8% (36.0-47.0) Mean Corpuscular Volume 89fL (79-100) Mean Corpuscular Hemoglobin 30pg (25-35) Mean Corpuscular Hemoglobin Concent 34g/dL (31-37) Red Cell Distribution Width 16.8% (11.5-14.5) Platelet Count 166x10^3/uL (140-400) Neutrophils (%) (Auto) 79% (31-73) Lymphocytes (%) (Auto) 12% (24-48) Monocytes (%) (Auto) 8% (0-9) Eosinophils (%) (Auto) 1% (0-3) Basophils (%) (Auto) 0% (0-3) Neutrophils # (Auto) 9.1x10^3uL (1.8-7.7) Lymphocytes # (Auto) 1.4x10^3/uL (1.0-4.8) Monocytes # (Auto) 0.9x10^3/uL (0.0-1.1) Eosinophils # (Auto) 0.1x10^3/uL (0.0-0.7) Basophils # (Auto) 0.0x10^3/uL (0.0-0.2) Sodium Level 138mmol/L (136-145) Potassium Level 3.4mmol/L (3.5-5.1) Chloride Level 106mmol/L (98-107) Carbon Dioxide Level 25mmol/L (21-32) Anion Gap 7 (6-14) Blood Urea Nitrogen 34mg/dL (7-20) Creatinine 0.9mg/dL (0.6-1.0) Estimated GFR (Cockcroft-Gault) 59.9 Glucose Level 85mg/dL (70-99) Calcium Level 8.0mg/dL (8.5-10.1) Medications Current Medications Pantoprazole Sodium (Protonix Vial) 40 mg 1X ONCE IVP Last administered on 10:22; Start 08/10/16 at 10:00; Stop 08/10/16 at 10:08; Status DC Ondansetron HCl (Zofran) 4 mg 1X ONCE IV Last administered on 08/10/16 10:22 ; Start 08/10/16 at 10:00; Stop 08/10/16 at 10:08; Status DC Fentanyl Citrate 25 mcg 25 mcg 1X ONCE IV Last administered on 08/10/16 10:23 ; Start 08/10/16 at 10:00; Stop 08/10/16 at 10:08; Status DC Sodium Chloride (Iv Sodium Chloride 0.9% 500ml Bag) 500 ml @ 500 mls/hr 1X ONCE IV Last administered on 08/10/16 10:22; Start 08/10/16 at 10:30; Stop at 11:29; Status DC Ondansetron HCl (Zofran) 4 mg PRN Q8HRS PRN IV NAUSEA/VOMITING; Start 08/10/16 at 11:00; Stop 08/11/16 at 10:59; Status DC Fentanyl Citrate (Fentanyl 2ml Vial) 50 mcg PRN Q2HR PRN IV PAIN; Start at 11:00; Stop 08/11/16 at 10:59; Status DC Acetaminophen 650 mg 650 mg PRN Q4HRS PRN PO FEVER; Start 08/10/16 at 11:00; Stop 08/11/16 at 10:59; Status DC Potassium Chloride/Dextrose/ Sod Cl (KCl 20 Meq In D5W-NS) 1,000 ml @ 75 mls/ hr 1X ONCE IV Last administered on 08/10/16 11:51; Start 08/10/16 at 11:00; Stop 08/11/16 at 00:19; Status DC Metoclopramide HCl 5 mg 5 mg 1X STAT IV Last administered on 08/10/16 12:22; Start 08/10/16 at 11:10; Stop 08/10/16 at 11:29; Status DC Erythromycin Lactobionate/ Sodium Chloride (Erythrocin/Iv Sodium Chloride 0.9% 100ml) 100 ml @ 100 mls/hr ONCE STAT IV Last administered on 08/10/16 12:23 ; Start 08/10/16 at 11:11; Stop 08/10/16 at 12:10; Status DC Midazolam HCl (Versed) 5 mg STK-MED ONCE .ROUTE ; Start 08/10/16 at 12:38; Stop 08/10/16 at 12:39; Status DC Midazolam HCl (Versed) 5 mg STK-MED ONCE IV Last administered on 08/10/16 12: 59; Start 08/10/16 at 12:59; Stop 08/10/16 at 13:03; Status DC Fentanyl Citrate (Fentanyl 2ml Vial) 100 mcg STK-MED ONCE IV Last administered on 08/10/16 13:00; Start 08/10/16 at 13:00; Stop 08/10/16 at 13:03; Status DC Midazolam HCl (Versed) 5 mg STK-MED ONCE IV Last administered on 08/10/16 13: 01; Start 08/10/16 at 13:01; Stop 08/10/16 at 13:03; Status DC Fentanyl Citrate (Fentanyl 2ml Vial) 100 mcg STK-MED ONCE IV Last administered on 08/10/16 13:02; Start 08/10/16 at 13:02; Stop 08/10/16 at 13:03; Status DC Midazolam HCl (Versed) 5 mg STK-MED ONCE IV Last administered on 08/10/16 13: 03; Start 08/10/16 at 13:03; Stop 08/10/16 at 13:04; Status DC Midazolam HCl (Versed) 5 mg STK-MED ONCE IV Last administered on 08/10/16 13: 15; Start 08/10/16 at 13:15; Stop 08/10/16 at 13:19; Status DC Fentanyl Citrate 100 mcg 100 mcg STK-MED ONCE IV Last administered on 13:17; Start 08/10/16 at 13:17; Stop 08/10/16 at 13:19; Status DC Pantoprazole Sodium/Sodium Chloride (Protonix Iv/Iv Sodium Chloride 0.9% 100ml) 100 ml @ 10 mls/hr Q10H IV Last administered on 08/13/16 07:42; Start at 13:45 Epinephrine HCl (Epinephrine Syringe) 1 mg STK-MED ONCE .ROUTE ; Start 08/10/16 at 13:42; Stop 08/10/16 at 13:43; Status DC Potassium Chloride (Klor-Con) 40 meq 1X ONCE PO Last administered on 08/13/16 09:42; Start 08/13/16 at 08:45; Stop 08/13/16 at 08:46; Status DC Docusate Sodium (Colace) 100 mg PRN DAILY PRN PO CONSTIPATION Last administered on 08/13/16 09:42; Start 08/13/16 at 08:45 Escitalopram Oxalate (Lexapro) 5 mg DAILY PO Last administered on 08/13/16 09: 42; Start 08/13/16 at 09:00 Active Scripts Active Docusate Sodium 100 Mg Capsule 100 Mg PO PRN DAILY PRN Pantoprazole Sodium 40 Mg Tablet.dr 40 Mg PO BIDAC Reported Nifedipine Er (Nifedipine) 30 Mg Tab.er.24 30 Mg PO DAILY Loratadine 10 Mg Tablet 10 Mg PO DAILY Lexapro (Escitalopram Oxalate) 5 Mg Tablet 5 Mg PO DAILY Vitals/I & O Vital Sign - Last 24 Hours 08/12/16 08/12/16 08/12/16 08/12/16 14:32 16:36 16:54 17:12 Temp 97.9 97.9 97.9 98.4 97.9 97.9 97.9 98.4 Pulse 92 88 88 91 Resp 16 B/P 114/54 133/46 133/46 144/49 Pulse Ox 99 O2 Delivery Room Air Room Air 08/12/16 08/12/16 08/12/16 08/12/16 18:04 19:00 19:17 20:00 Temp 98.8 98.4 98.1 98.8 98.4 98.1 Pulse 88 96 90 Resp 16 18 16 B/P 140/57 141/60 134/45 Pulse Ox 95 O2 Delivery Room Air Room Air 08/12/16 08/12/16 08/12/16 08/12/16 20:08 21:42 21:53 22:53 Temp 98.8 98.1 98.2 98.8 98.8 98.1 98.2 98.8 Pulse 91 90 90 92 Resp 18 18 B/P 137/57 134/51 136/61 141/58 08/12/16 08/12/16 08/13/16 08/13/16 23:00 23:53 00:39 03:00 Temp 98.8 97.9 97.8 98.2 98.8 97.9 97.8 98.2 Pulse 92 85 88 78 Resp 18 B/P 141/58 135/57 136/58 140/64 Pulse Ox 97 96 O2 Delivery Room Air Room Air 08/13/16 08/13/16 08/13/16 07:00 08:00 11:00 Temp 98.1 98.1 98.1 98.1 Pulse 83 89 Resp 18 B/P 150/60 153/66 Pulse Ox 97 96 O2 Delivery Room Air Room Air Room Air Intake and Output 08/12/16 08/12/16 08/13/16 15:00 23:00 07:00 Intake Total 927 ml 220 ml Output Total 500 ml Balance 927 ml -280 ml ALBERTO BROWN MD August 13, 2016 12:35
[2016-08-13] MEDS ORDERED: ACETAMINOPHEN 325 MG TABLET. PO PRN (12:45)
[2016-08-13] MEDS ORDERED: ONDANSETRON PF 4 MG/2 ML VIAL. IV PRN (12:45)
--- NOTE | 2016-08-13 15:45 | EKG ---
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
[2016-08-13] MEDS: METOPROLOL TART IMMED RELEASE 25 MG TABLET. PO SCH ×2 (16:07→19:23)
[2016-08-13 22:12] LABS: BASO # 0.1 x10^3/uL (0.0-0.2); BASO % 1 % (0-3); EOS % 0 % (0-3); HEMATOCRIT 25.9 % (36.0-47.0); HEMOGLOBIN 8.6 g/dL (12.0-15.5); LYMPH # 1.1 x10^3/uL (1.0-4.8); LYMPH % 5 % (24-48); MEAN CORPUSCULAR HEMOGLOBIN 30 pg (25-35); MEAN CORPUSCULAR HGB CONC 33 g/dL (31-37); MEAN CORPUSCULAR VOLUME 90 fL (79-100); MONO % 3 % (0-9); NEUT % 92 % (31-73); PLATELET COUNT 239 x10^3/uL (140-400); RED BLOOD COUNT 2.88 x10^6/uL (3.50-5.40); RED CELL DISTRIBUTION WIDTH 16.7 % (11.5-14.5); WHITE BLOOD COUNT 22.3 x10^3/uL (4.0-11.0)
[2016-08-13 22:22] LABS: CALCIUM 8.5 mg/dL (8.5-10.1); CREATININE 1.1 mg/dL (0.6-1.0); GFR 47.6; POTASSIUM 4.1 mmol/L (3.5-5.1)
[2016-08-13 22:39] LABS: ANISOCYTOSIS SLIGHT; PLT ESTIMATE ADEQUATE (ADEQUATE)
[2016-08-13 22:40] LABS: POLYCHROMASIA SLIGHT
[2016-08-14] VITALS (24 sets, daily range): BP systolic 96–140; BP diastolic 43–67
[2016-08-14] MEDS: PANTOPRAZOLE SODIUM IV 80 MG in IV NORMAL SALINE 100ML 100 ML IV SCH (07:45)
--- NOTE | 2016-08-14 07:57 | PDOC ---
G I PROGRESS NOTE Subjective No complaints this morning. Objective Coffee-ground emesis last night and moved to unit. Briefly tachy with the emesis, then stable thereafter. No stools reported overnight nor further emesis. Physical Exam Lungs clear. RRR Abdomen soft, not distended. Epigastric tenderness. Review of Relevant I have reviewed the following items jose luis (where applicable) has been applied. Labs Laboratory Tests Test 08/13/16 03:05 08/13/16 22:05 White Blood Count 11.5 x10^3/uL (4.0-11.0) 22.3 x10^3/uL (4.0-11.0) Red Blood Count 2.90 x10^6/uL (3.50-5.40) 2.88 x10^6/uL (3.50-5.40) Hemoglobin 8.8 g/dL (12.0-15.5) 8.6 g/dL (12.0-15.5) Hematocrit 25.8 % (36.0-47.0) 25.9 % (36.0-47.0) Mean Corpuscular Volume 89 fL (79-100) 90 fL (79-100) Mean Corpuscular Hemoglobin 30 pg (25-35) 30 pg (25-35) Mean Corpuscular Hemoglobin Concent 34 g/dL (31-37) 33 g/dL (31-37) Red Cell Distribution Width 16.8 % (11.5-14.5) 16.7 % (11.5-14.5) Platelet Count 166 x10^3/uL (140-400) 239 x10^3/uL (140-400) Neutrophils (%) (Auto) 79 % (31-73) 92 % (31-73) Lymphocytes (%) (Auto) 12 % (24-48) 5 % (24-48) Monocytes (%) (Auto) 8 % (0-9) 3 % (0-9) Eosinophils (%) (Auto) 1 % (0-3) 0 % (0-3) Basophils (%) (Auto) 0 % (0-3) 1 % (0-3) Neutrophils # (Auto) 9.1 x10^3uL (1.8-7.7) 20.5 x10^3uL (1.8-7.7) Lymphocytes # (Auto) 1.4 x10^3/uL (1.0-4.8) 1.1 x10^3/uL (1.0-4.8) Monocytes # (Auto) 0.9 x10^3/uL (0.0-1.1) 0.6 x10^3/uL (0.0-1.1) Eosinophils # (Auto) 0.1 x10^3/uL (0.0-0.7) 0.0 x10^3/uL (0.0-0.7) Basophils # (Auto) 0.0 x10^3/uL (0.0-0.2) 0.1 x10^3/uL (0.0-0.2) Sodium Level 138 mmol/L (136-145) 138 mmol/L (136-145) Potassium Level 3.4 mmol/L (3.5-5.1) 4.1 mmol/L (3.5-5.1) Chloride Level 106 mmol/L (98-107) 103 mmol/L (98-107) Carbon Dioxide Level 25 mmol/L (21-32) 23 mmol/L (21-32) Anion Gap 7 (6-14) 12 (6-14) Blood Urea Nitrogen 34 mg/dL (7-20) 43 mg/dL (7-20) Creatinine 0.9 mg/dL (0.6-1.0) 1.1 mg/dL (0.6-1.0) Estimated GFR (Cockcroft-Gault) 59.9 47.6 Glucose Level 85 mg/dL (70-99) 150 mg/dL (70-99) Calcium Level 8.0 mg/dL (8.5-10.1) 8.5 mg/dL (8.5-10.1) Segmented Neutrophils % 85 % (35-66) Band Neutrophils % 4 % (0-9) Lymphocytes % 8 % (24-48) Monocytes % 1 % (0-10) Myelocytes % 2 % (0-0) Platelet Estimate Adequate (ADEQUATE) Polychromasia Slight Anisocytosis Slight Laboratory Tests Test 08/13/16 22:05 White Blood Count 22.3 x10^3/uL (4.0-11.0) Red Blood Count 2.88 x10^6/uL (3.50-5.40) Hemoglobin 8.6 g/dL (12.0-15.5) Hematocrit 25.9 % (36.0-47.0) Mean Corpuscular Volume 90 fL (79-100) Mean Corpuscular Hemoglobin 30 pg (25-35) Mean Corpuscular Hemoglobin Concent 33 g/dL (31-37) Red Cell Distribution Width 16.7 % (11.5-14.5) Platelet Count 239 x10^3/uL (140-400) Neutrophils (%) (Auto) 92 % (31-73) Lymphocytes (%) (Auto) 5 % (24-48) Monocytes (%) (Auto) 3 % (0-9) Eosinophils (%) (Auto) 0 % (0-3) Basophils (%) (Auto) 1 % (0-3) Neutrophils # (Auto) 20.5 x10^3uL (1.8-7.7) Lymphocytes # (Auto) 1.1 x10^3/uL (1.0-4.8) Monocytes # (Auto) 0.6 x10^3/uL (0.0-1.1) Eosinophils # (Auto) 0.0 x10^3/uL (0.0-0.7) Basophils # (Auto) 0.1 x10^3/uL (0.0-0.2) Segmented Neutrophils % 85 % (35-66) Band Neutrophils % 4 % (0-9) Lymphocytes % 8 % (24-48) Monocytes % 1 % (0-10) Myelocytes % 2 % (0-0) Platelet Estimate Adequate (ADEQUATE) Polychromasia Slight Anisocytosis Slight Sodium Level 138 mmol/L (136-145) Potassium Level 4.1 mmol/L (3.5-5.1) Chloride Level 103 mmol/L (98-107) Carbon Dioxide Level 23 mmol/L (21-32) Anion Gap 12 (6-14) Blood Urea Nitrogen 43 mg/dL (7-20) Creatinine 1.1 mg/dL (0.6-1.0) Estimated GFR (Cockcroft-Gault) 47.6 Glucose Level 150 mg/dL (70-99) Calcium Level 8.5 mg/dL (8.5-10.1) This morning's labs pending. Medications Current Medications Pantoprazole Sodium (Protonix Vial) 40 mg 1X ONCE IVP Last administered on 10:22; Start 08/10/16 at 10:00; Stop 08/10/16 at 10:08; Status DC Ondansetron HCl (Zofran) 4 mg 1X ONCE IV Last administered on 08/10/16 10:22 ; Start 08/10/16 at 10:00; Stop 08/10/16 at 10:08; Status DC Fentanyl Citrate (Fentanyl 2ml Vial) 25 mcg 1X ONCE IV Last administered on 10:23; Start 08/10/16 at 10:00; Stop 08/10/16 at 10:08; Status DC Sodium Chloride 500 ml @ 500 mls/hr 1X ONCE IV Last administered on 10:22; Start 08/10/16 at 10:30; Stop 08/10/16 at 11:29; Status DC Ondansetron HCl (Zofran) 4 mg PRN Q8HRS PRN IV NAUSEA/VOMITING; Start 08/10/16 at 11:00; Stop 08/11/16 at 10:59; Status DC Fentanyl Citrate (Fentanyl 2ml Vial) 50 mcg PRN Q2HR PRN IV PAIN; Start at 11:00; Stop 08/11/16 at 10:59; Status DC Acetaminophen (Tylenol) 650 mg PRN Q4HRS PRN PO FEVER; Start 08/10/16 at 11:00 ; Stop 08/11/16 at 10:59; Status DC Potassium Chloride/Dextrose/ Sod Cl 1,000 ml @ 75 mls/hr 1X ONCE IV Last administered on 08/10/16 11:51; Start 08/10/16 at 11:00; Stop 08/11/16 at 00:19 ; Status DC Metoclopramide HCl (Reglan) 5 mg 1X STAT IV Last administered on 08/10/16 12: 22; Start 08/10/16 at 11:10; Stop 08/10/16 at 11:29; Status DC Erythromycin Lactobionate 250 mg/Sodium Chloride 100 ml @ 100 mls/hr ONCE STAT IV Last administered on 08/10/16 12:23; Start 08/10/16 at 11:11; Stop at 12:10; Status DC Midazolam HCl (Versed) 5 mg STK-MED ONCE .ROUTE ; Start 08/10/16 at 12:38; Stop 08/10/16 at 12:39; Status DC Midazolam HCl (Versed) 5 mg STK-MED ONCE IV Last administered on 08/10/16 12: 59; Start 08/10/16 at 12:59; Stop 08/10/16 at 13:03; Status DC Fentanyl Citrate (Fentanyl 2ml Vial) 100 mcg STK-MED ONCE IV Last administered on 08/10/16 13:00; Start 08/10/16 at 13:00; Stop 08/10/16 at 13:03; Status DC Midazolam HCl (Versed) 5 mg STK-MED ONCE IV Last administered on 08/10/16 13: 01; Start 08/10/16 at 13:01; Stop 08/10/16 at 13:03; Status DC Fentanyl Citrate (Fentanyl 2ml Vial) 100 mcg STK-MED ONCE IV Last administered on 08/10/16 13:02; Start 08/10/16 at 13:02; Stop 08/10/16 at 13:03; Status DC Midazolam HCl (Versed) 5 mg STK-MED ONCE IV Last administered on 08/10/16 13: 03; Start 08/10/16 at 13:03; Stop 08/10/16 at 13:04; Status DC Midazolam HCl (Versed) 5 mg STK-MED ONCE IV Last administered on 08/10/16 13: 15; Start 08/10/16 at 13:15; Stop 08/10/16 at 13:19; Status DC Fentanyl Citrate (Fentanyl 2ml Vial) 100 mcg STK-MED ONCE IV Last administered on 08/10/16 13:17; Start 08/10/16 at 13:17; Stop 08/10/16 at 13:19; Status DC Pantoprazole Sodium 80 mg/ Sodium Chloride 100 ml @ 10 mls/hr Q10H IV Last administered on 08/13/16 21:13; Start 08/10/16 at 13:45 Epinephrine HCl (Epinephrine Syringe) 1 mg STK-MED ONCE .ROUTE ; Start 08/10/16 at 13:42; Stop 08/10/16 at 13:43; Status DC Potassium Chloride (Klor-Con) 40 meq 1X ONCE PO Last administered on 08/13/16 09:42; Start 08/13/16 at 08:45; Stop 08/13/16 at 08:46; Status DC Docusate Sodium (Colace) 100 mg PRN DAILY PRN PO CONSTIPATION Last administered on 08/13/16 09:42; Start 08/13/16 at 08:45 Escitalopram Oxalate (Lexapro) 5 mg DAILY PO Last administered on 08/13/16 09: 42; Start 08/13/16 at 09:00 Acetaminophen (Tylenol) 650 mg PRN Q6HRS PRN PO FEVER; Start 08/13/16 at 12:45 Ondansetron HCl (Zofran) 4 mg PRN Q6HRS PRN IV NAUSEA/VOMITING; Start 08/13/16 at 12:45 Metoprolol Tartrate (Lopressor) 12.5 mg BID PO Last administered on 08/13/16 19 :23; Start 08/13/16 at 15:00 Active Scripts Active Docusate Sodium 100 Mg Capsule 100 Mg PO PRN DAILY PRN Pantoprazole Sodium 40 Mg Tablet.dr 40 Mg PO BIDAC Reported Nifedipine Er (Nifedipine) 30 Mg Tab.er.24 30 Mg PO DAILY Loratadine 10 Mg Tablet 10 Mg PO DAILY Lexapro (Escitalopram Oxalate) 5 Mg Tablet 5 Mg PO DAILY Vitals/I & O Vital Sign - Last 24 Hours 08/13/16 08/13/16 08/13/16 08/13/16 08:00 11:00 15:00 16:07 Temp 98.1 97.9 98.1 97.9 Pulse 89 90 90 Resp 18 19 B/P (MAP) 153/66 (95) 129/62 (84) 129/62 Pulse Ox 96 99 O2 Delivery Room Air Room Air Room Air 08/13/16 08/13/16 08/13/16 08/13/16 19:23 19:33 20:00 23:00 Temp 97.4 97.7 97.4 97.7 Pulse 120 83 112 Resp 18 20 B/P (MAP) 111/61 111/61 (78) 113/53 (73) Pulse Ox 96 97 O2 Delivery Room Air Room Air Room Air 08/13/16 08/13/16 08/13/16 08/14/16 23:15 23:30 23:45 00:00 Pulse 108 104 102 Resp 22 21 16 B/P (MAP) 98/58 (71) 86/51 (63) 97/52 (67) Pulse Ox 98 98 98 O2 Delivery Room Air Room Air Room Air Room Air 08/14/16 08/14/16 08/14/16 08/14/16 00:00 01:00 01:25 01:40 Temp 98.5 97.8 98.5 97.8 Pulse 104 100 100 96 Resp 18 B/P (MAP) 96/50 (65) 98/53 (68) 98/53 106/48 Pulse Ox 97 97 O2 Delivery Room Air Room Air 08/14/16 08/14/16 08/14/16 08/14/16 02:00 02:25 03:00 04:00 Temp 98.1 98.1 Pulse 103 96 87 Resp B/P (MAP) 104/54 (71) 122/64 140/67 (91) Pulse Ox 97 99 O2 Delivery Room Air Room Air Room Air 08/14/16 08/14/16 08/14/16 04:00 05:00 06:00 Temp 97.6 97.6 Pulse 90 93 90 Resp B/P (MAP) 123/53 (76) 125/59 (81) 125/55 (78) Pulse Ox 98 97 96 O2 Delivery Room Air Room Air Room Air Intake and Output 08/13/16 08/13/16 08/14/16 14:59 22:59 06:59 Intake Total 600 ml 760 ml 41 ml Output Total 650 ml Balance 600 ml 110 ml 41 ml Problem List Problems Medical Problems: (1) GIB (gastrointestinal bleeding) Status: Acute (2) Upper GI bleed Status: Acute Assessment "Stuttering" UGI bleed from known large ulcer. Given size of ulcer initially, not surprising she would have recurrent issues as long time to heal. Plan of Care: Continue current Tx, Mgmt Plan of Care Note Will plan on EGD later today. Will ask for surgical and IR opinions, though at last EGD, not really lesion approachable by IR seen. Keep NPO. MAINE HENRIQUEZ MD August 14, 2016 07:57
[2016-08-14 08:12] LABS: CALCIUM 8.1 mg/dL (8.5-10.1); CREATININE 0.9 mg/dL (0.6-1.0); GFR 59.9; POTASSIUM 4.2 mmol/L (3.5-5.1)
[2016-08-14 08:18] LABS: BASO % 0 % (0-3); EOS % 0 % (0-3); HEMATOCRIT 25.7 % (36.0-47.0); HEMOGLOBIN 8.5 g/dL (12.0-15.5); LYMPH # 1.9 x10^3/uL (1.0-4.8); LYMPH % 11 % (24-48); MEAN CORPUSCULAR HEMOGLOBIN 29 pg (25-35); MEAN CORPUSCULAR HGB CONC 33 g/dL (31-37); MEAN CORPUSCULAR VOLUME 88 fL (79-100); MONO % 7 % (0-9); NEUT % 81 % (31-73); PLATELET COUNT 187 x10^3/uL (140-400); RED BLOOD COUNT 2.92 x10^6/uL (3.50-5.40); RED CELL DISTRIBUTION WIDTH 16.6 % (11.5-14.5); WHITE BLOOD COUNT 16.7 x10^3/uL (4.0-11.0)
[2016-08-14 08:40] LABS: INR 1.2 (0.8-1.1); PROTHROMBIN TIME PATIENT 14.1 SEC (11.7-14.0)
[2016-08-14] MEDS: METOPROLOL TART IMMED RELEASE 25 MG TABLET. PO SCH ×2 (09:00→21:00)
[2016-08-14] MEDS: ESCITALOPRAM 5 MG TABLET. PO SCH (09:00)
--- NOTE | 2016-08-14 09:14 | PDOC2 ---
Consult: IR Consult S: 81 yo with intermittent upper GI bleeding treated with embolization of culprit pancreaticoduodenal artery on 07/31/16 with excellent angiographic result. No other discernible arterial abnormalities at that time. Now with recurrent upper coffee ground emesis. Stable hemodynamics. Hx of iodine allergy but tolerated premedication for angiogram. O: VSS. Hg 8.6. Cre 1.1. Exam deferred. Other labs reviewed. A: Recurrent upper GI bleeding. Hemodynamically stable and s/p effective embolization two weeks ago. Large ulcer is likely source. Recommendations: EGD. If bleeding persists following EGD I recommend premedication for iodine allergy and non-invasive CTA of the abdomen and pelvis. Premedication protocol is available from the CT department. If non- invasive CTA is negative, follow up with Tagged RBC nuclear medicine scan during periods of suspected active extravasation. Diagnostic yield at angiography will be very poor in the absence of a positive CTA or nuclear medicine scan. Elective non-selective embolization of the GDA should be reserved for persistent bleeding in the face of negative CTA and nucs study as embolization targeted to the bleeding source has better efficacy, and early non- selective embolization may preclude future selective embolization in the event of persistent or recurrent hemorrage. SHON CHAO MD August 14, 2016 09:14
--- NOTE | 2016-08-14 09:33 | PDOC ---
PROGRESS NOTES Chief Complaint Chief Complaint 1. DUOdenum GIB: s/p dual scopes 07/11 and embolization on 07/12, this time got cautery and epi 08/10 2. Anemia: acute blood loss, upper, 3. Dehydration 4. GELA, vasomotor 5. Uremia: 2/2 UGIB. 6. Dementia: moderate 7. HTN: on nifedipine at home 8. SIRS, no sepsis 9. hypokalemia on protonix drip History of Present Illness History of Present Illness RAPID RESPONSE last night. pt was vomiting copious amount of bright red blood last night, addition 2 u PRBC ordered, 1 u given, Transfer to ICU, vitals stable, no further vomiting pt calm and relaxed this AM planned EGD today 3pm per GI no BM NO ABD PAIN Vitals Vitals Vital Signs Date Time Temp Pulse Resp B/P (MAP) Pulse Ox O2 Delivery O2 Flow Rate FiO2 08/14/16 08:00 Room Air 08/14/16 07:00 98.7 90 18 121/59 (79) 97 98.7 Physical Exam General: Alert, Cooperative, No acute distress, Other (not oriented 0/3, she reports this would be normal for her) Heart: Regular rate, Normal S1, Normal S2 Lungs: Clear Abdomen: Normal bowel sounds, Soft Extremities: No cyanosis, Normal pulses Skin: No rashes, No breakdown Labs LABS Laboratory Tests Test 08/13/16 22:05 08/14/16 07:50 08/14/16 08:20 White Blood Count 22.3 x10^3/uL (4.0-11.0) 16.7 x10^3/uL (4.0-11.0) Red Blood Count 2.88 x10^6/uL (3.50-5.40) 2.92 x10^6/uL (3.50-5.40) Hemoglobin 8.6 g/dL (12.0-15.5) 8.5 g/dL (12.0-15.5) Hematocrit 25.9 % (36.0-47.0) 25.7 % (36.0-47.0) Mean Corpuscular Volume 90 fL (79-100) 88 fL (79-100) Mean Corpuscular Hemoglobin 30 pg (25-35) 29 pg (25-35) Mean Corpuscular Hemoglobin Concent 33 g/dL (31-37) 33 g/dL (31-37) Red Cell Distribution Width 16.7 % (11.5-14.5) 16.6 % (11.5-14.5) Platelet Count 239 x10^3/uL (140-400) 187 x10^3/uL (140-400) Neutrophils (%) (Auto) 92 % (31-73) 81 % (31-73) Lymphocytes (%) (Auto) 5 % (24-48) 11 % (24-48) Monocytes (%) (Auto) 3 % (0-9) 7 % (0-9) Eosinophils (%) (Auto) 0 % (0-3) 0 % (0-3) Basophils (%) (Auto) 1 % (0-3) 0 % (0-3) Neutrophils # (Auto) 20.5 x10^3uL (1.8-7.7) 13.5 x10^3uL (1.8-7.7) Lymphocytes # (Auto) 1.1 x10^3/uL (1.0-4.8) 1.9 x10^3/uL (1.0-4.8) Monocytes # (Auto) 0.6 x10^3/uL (0.0-1.1) 1.2 x10^3/uL (0.0-1.1) Eosinophils # (Auto) 0.0 x10^3/uL (0.0-0.7) 0.0 x10^3/uL (0.0-0.7) Basophils # (Auto) 0.1 x10^3/uL (0.0-0.2) 0.0 x10^3/uL (0.0-0.2) Segmented Neutrophils % 85 % (35-66) Band Neutrophils % 4 % (0-9) Lymphocytes % 8 % (24-48) Monocytes % 1 % (0-10) Myelocytes % 2 % (0-0) Platelet Estimate Adequate (ADEQUATE) Polychromasia Slight Anisocytosis Slight Sodium Level 138 mmol/L (136-145) 140 mmol/L (136-145) Potassium Level 4.1 mmol/L (3.5-5.1) 4.2 mmol/L (3.5-5.1) Chloride Level 103 mmol/L (98-107) 107 mmol/L (98-107) Carbon Dioxide Level 23 mmol/L (21-32) 23 mmol/L (21-32) Anion Gap 12 (6-14) 10 (6-14) Blood Urea Nitrogen 43 mg/dL (7-20) 52 mg/dL (7-20) Creatinine 1.1 mg/dL (0.6-1.0) 0.9 mg/dL (0.6-1.0) Estimated GFR (Cockcroft-Gault) 47.6 59.9 Glucose Level 150 mg/dL (70-99) 120 mg/dL (70-99) Calcium Level 8.5 mg/dL (8.5-10.1) 8.1 mg/dL (8.5-10.1) Prothrombin Time 14.1 SEC (11.7-14.0) Prothromb Time International Ratio 1.2 (0.8-1.1) Review of Systems Review of Systems no stool vomited last night, none this AM Assessment and Plan Assessmemt and Plan Problems Medical Problems: (1) GIB (gastrointestinal bleeding) Status: Acute (2) Upper GI bleed Status: Acute Problems: Comment Review of Relevant I have reviewed the following items jose luis (where applicable) has been applied. Labs Laboratory Tests Test 08/13/16 03:05 08/13/16 22:05 08/14/16 07:50 08/14/16 08:20 White Blood Count 11.5 x10^3/uL (4.0-11.0) 22.3 x10^3/uL (4.0-11.0) 16.7 x10^3/uL (4.0-11.0) Red Blood Count 2.90 x10^6/uL (3.50-5.40) 2.88 x10^6/uL (3.50-5.40) 2.92 x10^6/uL (3.50-5.40) Hemoglobin 8.8 g/dL (12.0-15.5) 8.6 g/dL (12.0-15.5) 8.5 g/dL (12.0-15.5) Hematocrit 25.8 % (36.0-47.0) 25.9 % (36.0-47.0) 25.7 % (36.0-47.0) Mean Corpuscular Volume 89 fL (79-100) 90 fL (79-100) 88 fL (79-100) Mean Corpuscular Hemoglobin 30 pg (25-35) 30 pg (25-35) 29 pg (25-35) Mean Corpuscular Hemoglobin Concent 34 g/dL (31-37) 33 g/dL (31-37) 33 g/dL (31-37) Red Cell Distribution Width 16.8 % (11.5-14.5) 16.7 % (11.5-14.5) 16.6 % (11.5-14.5) Platelet Count 166 x10^3/uL (140-400) 239 x10^3/uL (140-400) 187 x10^3/uL (140-400) Neutrophils (%) (Auto) 79 % (31-73) 92 % (31-73) 81 % (31-73) Lymphocytes (%) (Auto) 12 % (24-48) 5 % (24-48) 11 % (24-48) Monocytes (%) (Auto) 8 % (0-9) 3 % (0-9) 7 % (0-9) Eosinophils (%) (Auto) 1 % (0-3) 0 % (0-3) 0 % (0-3) Basophils (%) (Auto) 0 % (0-3) 1 % (0-3) 0 % (0-3) Neutrophils # (Auto) 9.1 x10^3uL (1.8-7.7) 20.5 x10^3uL (1.8-7.7) 13.5 x10^3uL (1.8-7.7) Lymphocytes # (Auto) 1.4 x10^3/uL (1.0-4.8) 1.1 x10^3/uL (1.0-4.8) 1.9 x10^3/uL (1.0-4.8) Monocytes # (Auto) 0.9 x10^3/uL (0.0-1.1) 0.6 x10^3/uL (0.0-1.1) 1.2 x10^3/uL (0.0-1.1) Eosinophils # (Auto) 0.1 x10^3/uL (0.0-0.7) 0.0 x10^3/uL (0.0-0.7) 0.0 x10^3/uL (0.0-0.7) Basophils # (Auto) 0.0 x10^3/uL (0.0-0.2) 0.1 x10^3/uL (0.0-0.2) 0.0 x10^3/uL (0.0-0.2) Sodium Level 138 mmol/L (136-145) 138 mmol/L (136-145) 140 mmol/L (136-145) Potassium Level 3.4 mmol/L (3.5-5.1) 4.1 mmol/L (3.5-5.1) 4.2 mmol/L (3.5-5.1) Chloride Level 106 mmol/L (98-107) 103 mmol/L (98-107) 107 mmol/L (98-107) Carbon Dioxide Level 25 mmol/L (21-32) 23 mmol/L (21-32) 23 mmol/L (21-32) Anion Gap 7 (6-14) 12 (6-14) 10 (6-14) Blood Urea Nitrogen 34 mg/dL (7-20) 43 mg/dL (7-20) 52 mg/dL (7-20) Creatinine 0.9 mg/dL (0.6-1.0) 1.1 mg/dL (0.6-1.0) 0.9 mg/dL (0.6-1.0) Estimated GFR (Cockcroft-Gault) 59.9 47.6 59.9 Glucose Level 85 mg/dL (70-99) 150 mg/dL (70-99) 120 mg/dL (70-99) Calcium Level 8.0 mg/dL (8.5-10.1) 8.5 mg/dL (8.5-10.1) 8.1 mg/dL (8.5-10.1) Segmented Neutrophils % 85 % (35-66) Band Neutrophils % 4 % (0-9) Lymphocytes % 8 % (24-48) Monocytes % 1 % (0-10) Myelocytes % 2 % (0-0) Platelet Estimate Adequate (ADEQUATE) Polychromasia Slight Anisocytosis Slight Prothrombin Time 14.1 SEC (11.7-14.0) Prothromb Time International Ratio 1.2 (0.8-1.1) Laboratory Tests Test 08/13/16 22:05 08/14/16 07:50 08/14/16 08:20 White Blood Count 22.3 x10^3/uL (4.0-11.0) 16.7 x10^3/uL (4.0-11.0) Red Blood Count 2.88 x10^6/uL (3.50-5.40) 2.92 x10^6/uL (3.50-5.40) Hemoglobin 8.6 g/dL (12.0-15.5) 8.5 g/dL (12.0-15.5) Hematocrit 25.9 % (36.0-47.0) 25.7 % (36.0-47.0) Mean Corpuscular Volume 90 fL (79-100) 88 fL (79-100) Mean Corpuscular Hemoglobin 30 pg (25-35) 29 pg (25-35) Mean Corpuscular Hemoglobin Concent 33 g/dL (31-37) 33 g/dL (31-37) Red Cell Distribution Width 16.7 % (11.5-14.5) 16.6 % (11.5-14.5) Platelet Count 239 x10^3/uL (140-400) 187 x10^3/uL (140-400) Neutrophils (%) (Auto) 92 % (31-73) 81 % (31-73) Lymphocytes (%) (Auto) 5 % (24-48) 11 % (24-48) Monocytes (%) (Auto) 3 % (0-9) 7 % (0-9) Eosinophils (%) (Auto) 0 % (0-3) 0 % (0-3) Basophils (%) (Auto) 1 % (0-3) 0 % (0-3) Neutrophils # (Auto) 20.5 x10^3uL (1.8-7.7) 13.5 x10^3uL (1.8-7.7) Lymphocytes # (Auto) 1.1 x10^3/uL (1.0-4.8) 1.9 x10^3/uL (1.0-4.8) Monocytes # (Auto) 0.6 x10^3/uL (0.0-1.1) 1.2 x10^3/uL (0.0-1.1) Eosinophils # (Auto) 0.0 x10^3/uL (0.0-0.7) 0.0 x10^3/uL (0.0-0.7) Basophils # (Auto) 0.1 x10^3/uL (0.0-0.2) 0.0 x10^3/uL (0.0-0.2) Segmented Neutrophils % 85 % (35-66) Band Neutrophils % 4 % (0-9) Lymphocytes % 8 % (24-48) Monocytes % 1 % (0-10) Myelocytes % 2 % (0-0) Platelet Estimate Adequate (ADEQUATE) Polychromasia Slight Anisocytosis Slight Sodium Level 138 mmol/L (136-145) 140 mmol/L (136-145) Potassium Level 4.1 mmol/L (3.5-5.1) 4.2 mmol/L (3.5-5.1) Chloride Level 103 mmol/L (98-107) 107 mmol/L (98-107) Carbon Dioxide Level 23 mmol/L (21-32) 23 mmol/L (21-32) Anion Gap 12 (6-14) 10 (6-14) Blood Urea Nitrogen 43 mg/dL (7-20) 52 mg/dL (7-20) Creatinine 1.1 mg/dL (0.6-1.0) 0.9 mg/dL (0.6-1.0) Estimated GFR (Cockcroft-Gault) 47.6 59.9 Glucose Level 150 mg/dL (70-99) 120 mg/dL (70-99) Calcium Level 8.5 mg/dL (8.5-10.1) 8.1 mg/dL (8.5-10.1) Prothrombin Time 14.1 SEC (11.7-14.0) Prothromb Time International Ratio 1.2 (0.8-1.1) Medications Current Medications Pantoprazole Sodium (Protonix Vial) 40 mg 1X ONCE IVP Last administered on t 10:22; Start 08/10/16 at 10:00; Stop 08/10/16 at 10:08; Status DC Ondansetron HCl (Zofran) 4 mg 1X ONCE IV Last administered on 08/10/16 10:22 ; Start 08/10/16 at 10:00; Stop 08/10/16 at 10:08; Status DC Fentanyl Citrate (Fentanyl 2ml Vial) 25 mcg 1X ONCE IV Last administered on 10:23; Start 08/10/16 at 10:00; Stop 08/10/16 at 10:08; Status DC Sodium Chloride 500 ml @ 500 mls/hr 1X ONCE IV Last administered on 10:22; Start 08/10/16 at 10:30; Stop 08/10/16 at 11:29; Status DC Ondansetron HCl (Zofran) 4 mg PRN Q8HRS PRN IV NAUSEA/VOMITING; Start 08/10/16 at 11:00; Stop 08/11/16 at 10:59; Status DC Fentanyl Citrate (Fentanyl 2ml Vial) 50 mcg PRN Q2HR PRN IV PAIN; Start at 11:00; Stop 08/11/16 at 10:59; Status DC Acetaminophen (Tylenol) 650 mg PRN Q4HRS PRN PO FEVER; Start 08/10/16 at 11:00 ; Stop 08/11/16 at 10:59; Status DC Potassium Chloride/Dextrose/ Sod Cl 1,000 ml @ 75 mls/hr 1X ONCE IV Last administered on 08/10/16 11:51; Start 08/10/16 at 11:00; Stop 08/11/16 at 00:19 ; Status DC Metoclopramide HCl (Reglan) 5 mg 1X STAT IV Last administered on 08/10/16 12: 22; Start 08/10/16 at 11:10; Stop 08/10/16 at 11:29; Status DC Erythromycin Lactobionate 250 mg/Sodium Chloride 100 ml @ 100 mls/hr ONCE STAT IV Last administered on 08/10/16 12:23; Start 08/10/16 at 11:11; Stop at 12:10; Status DC Midazolam HCl (Versed) 5 mg STK-MED ONCE .ROUTE ; Start 08/10/16 at 12:38; Stop 08/10/16 at 12:39; Status DC Midazolam HCl (Versed) 5 mg STK-MED ONCE IV Last administered on 08/10/16 12: 59; Start 08/10/16 at 12:59; Stop 08/10/16 at 13:03; Status DC Fentanyl Citrate (Fentanyl 2ml Vial) 100 mcg STK-MED ONCE IV Last administered on 08/10/16 13:00; Start 08/10/16 at 13:00; Stop 08/10/16 at 13:03; Status DC Midazolam HCl (Versed) 5 mg STK-MED ONCE IV Last administered on 08/10/16 13: 01; Start 08/10/16 at 13:01; Stop 08/10/16 at 13:03; Status DC Fentanyl Citrate (Fentanyl 2ml Vial) 100 mcg STK-MED ONCE IV Last administered on 08/10/16 13:02; Start 08/10/16 at 13:02; Stop 08/10/16 at 13:03; Status DC Midazolam HCl (Versed) 5 mg STK-MED ONCE IV Last administered on 08/10/16 13: 03; Start 08/10/16 at 13:03; Stop 08/10/16 at 13:04; Status DC Midazolam HCl (Versed) 5 mg STK-MED ONCE IV Last administered on 08/10/16 13: 15; Start 08/10/16 at 13:15; Stop 08/10/16 at 13:19; Status DC Fentanyl Citrate (Fentanyl 2ml Vial) 100 mcg STK-MED ONCE IV Last administered on 08/10/16 13:17; Start 08/10/16 at 13:17; Stop 08/10/16 at 13:19; Status DC Pantoprazole Sodium 80 mg/ Sodium Chloride 100 ml @ 10 mls/hr Q10H IV Last administered on 08/13/16 21:13; Start 08/10/16 at 13:45 Epinephrine HCl (Epinephrine Syringe) 1 mg STK-MED ONCE .ROUTE ; Start 08/10/16 at 13:42; Stop 08/10/16 at 13:43; Status DC Potassium Chloride (Klor-Con) 40 meq 1X ONCE PO Last administered on 08/13/16 09:42; Start 08/13/16 at 08:45; Stop 08/13/16 at 08:46; Status DC Docusate Sodium (Colace) 100 mg PRN DAILY PRN PO CONSTIPATION Last administered on 08/13/16 09:42; Start 08/13/16 at 08:45 Escitalopram Oxalate (Lexapro) 5 mg DAILY PO Last administered on 08/13/16 09: 42; Start 08/13/16 at 09:00 Acetaminophen (Tylenol) 650 mg PRN Q6HRS PRN PO FEVER; Start 08/13/16 at 12:45 Ondansetron HCl (Zofran) 4 mg PRN Q6HRS PRN IV NAUSEA/VOMITING; Start 08/13/16 at 12:45 Metoprolol Tartrate (Lopressor) 12.5 mg BID PO Last administered on 08/13/16 19 :23; Start 08/13/16 at 15:00 Active Scripts Active Docusate Sodium 100 Mg Capsule 100 Mg PO PRN DAILY PRN Pantoprazole Sodium 40 Mg Tablet.dr 40 Mg PO BIDAC Reported Nifedipine Er (Nifedipine) 30 Mg Tab.er.24 30 Mg PO DAILY Loratadine 10 Mg Tablet 10 Mg PO DAILY Lexapro (Escitalopram Oxalate) 5 Mg Tablet 5 Mg PO DAILY Vitals/I & O Vital Sign - Last 24 Hours 08/13/16 08/13/16 08/13/16 08/13/16 11:00 15:00 16:07 19:23 Temp 98.1 97.9 98.1 97.9 Pulse 89 90 90 120 Resp 18 19 B/P (MAP) 153/66 (95) 129/62 (84) 129/62 111/61 Pulse Ox 96 99 O2 Delivery Room Air Room Air 08/13/16 08/13/16 08/13/16 08/13/16 19:33 20:00 23:00 23:15 Temp 97.4 97.7 97.4 97.7 Pulse 83 112 108 Resp 18 20 22 B/P (MAP) 111/61 (78) 113/53 (73) 98/58 (71) Pulse Ox 96 97 98 O2 Delivery Room Air Room Air Room Air Room Air 08/13/16 08/13/16 08/14/16 08/14/16 23:30 23:45 00:00 00:00 Pulse 104 102 104 Resp 21 16 20 B/P (MAP) 86/51 (63) 97/52 (67) 96/50 (65) Pulse Ox 98 98 97 O2 Delivery Room Air Room Air Room Air Room Air 08/14/16 08/14/16 08/14/16 08/14/16 01:00 01:25 01:40 02:00 Temp 98.5 97.8 98.5 97.8 Pulse 100 100 96 103 Resp 19 19 18 20 B/P (MAP) 98/53 (68) 98/53 106/48 104/54 (71) Pulse Ox 97 97 O2 Delivery Room Air Room Air 08/14/16 08/14/16 08/14/16 08/14/16 02:25 03:00 04:00 04:00 Temp 98.1 97.6 98.1 97.6 Pulse 96 87 90 Resp 16 17 19 B/P (MAP) 122/64 140/67 (91) 123/53 (76) Pulse Ox 99 98 O2 Delivery Room Air Room Air Room Air 08/14/16 08/14/16 08/14/16 08/14/16 05:00 06:00 07:00 08:00 Temp 98.7 98.7 Pulse 93 90 90 Resp 22 19 18 B/P (MAP) 125/59 (81) 125/55 (78) 121/59 (79) Pulse Ox 97 96 97 O2 Delivery Room Air Room Air Room Air Room Air Intake and Output 08/13/16 08/13/16 08/14/16 14:59 22:59 06:59 Intake Total 600 ml 760 ml 41 ml Output Total 650 ml Balance 600 ml 110 ml 41 ml HAYDE PAREKH MD August 14, 2016 09:33
--- NOTE | 2016-08-14 09:46 | PDOC2 ---
DALLAS MORRIS EDITORIAL INTERN 08/14/16 0946: CONSULT Date of Consult Date of Consult DATE: 08/14/16 TIME: 09:36 Reason for Consult Reason for Consult: DU, GI bleed Referring Physician Referring Physician: Dr Alfonso Identification/Chief Complaint Chief Complaint hematemesis Source Source: Caregiver, Chart review, Patient History of Present Illness Reason for Visit: Admitted with coffee ground emesis. Records reveal scope, IR embolization on 07/14. 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 Last night had dark emesis with tachycardia. Transferred to ICU, currently stable, Hgb stable 8.5 IR consulted, GI planning EGD today Past Medical History Cardiovascular: HTN CENTRAL NERVOUS SYSTEM: Dementia Renal/: UTI Past Surgical History Past Surgical History: Cholecystectomy Family History Family History: No Significant Social History Quit ALCOHOL: none Drugs: None Lives: with Family Current Problem List Problem List Problems Medical Problems: (1) GIB (gastrointestinal bleeding) Status: Acute (2) Upper GI bleed Status: Acute Current Medications Current Medications Current Medications Pantoprazole Sodium (Protonix Vial) 40 mg 1X ONCE IVP Last administered on 10:22; Start 08/10/16 at 10:00; Stop 08/10/16 at 10:08; Status DC Ondansetron HCl (Zofran) 4 mg 1X ONCE IV Last administered on 08/10/16 10:22 ; Start 08/10/16 at 10:00; Stop 08/10/16 at 10:08; Status DC Fentanyl Citrate (Fentanyl 2ml Vial) 25 mcg 1X ONCE IV Last administered on 10:23; Start 08/10/16 at 10:00; Stop 08/10/16 at 10:08; Status DC Sodium Chloride 500 ml @ 500 mls/hr 1X ONCE IV Last administered on 10:22; Start 08/10/16 at 10:30; Stop 08/10/16 at 11:29; Status DC Ondansetron HCl (Zofran) 4 mg PRN Q8HRS PRN IV NAUSEA/VOMITING; Start 08/10/16 at 11:00; Stop 08/11/16 at 10:59; Status DC Fentanyl Citrate (Fentanyl 2ml Vial) 50 mcg PRN Q2HR PRN IV PAIN; Start at 11:00; Stop 08/11/16 at 10:59; Status DC Acetaminophen (Tylenol) 650 mg PRN Q4HRS PRN PO FEVER; Start 08/10/16 at 11:00 ; Stop 08/11/16 at 10:59; Status DC Potassium Chloride/Dextrose/ Sod Cl 1,000 ml @ 75 mls/hr 1X ONCE IV Last administered on 08/10/16 11:51; Start 08/10/16 at 11:00; Stop 08/11/16 at 00:19 ; Status DC Metoclopramide HCl (Reglan) 5 mg 1X STAT IV Last administered on 08/10/16 12: 22; Start 08/10/16 at 11:10; Stop 08/10/16 at 11:29; Status DC Erythromycin Lactobionate 250 mg/Sodium Chloride 100 ml @ 100 mls/hr ONCE STAT IV Last administered on 08/10/16 12:23; Start 08/10/16 at 11:11; Stop at 12:10; Status DC Midazolam HCl (Versed) 5 mg STK-MED ONCE .ROUTE ; Start 08/10/16 at 12:38; Stop 08/10/16 at 12:39; Status DC Midazolam HCl (Versed) 5 mg STK-MED ONCE IV Last administered on 08/10/16 12: 59; Start 08/10/16 at 12:59; Stop 08/10/16 at 13:03; Status DC Fentanyl Citrate (Fentanyl 2ml Vial) 100 mcg STK-MED ONCE IV Last administered on 08/10/16 13:00; Start 08/10/16 at 13:00; Stop 08/10/16 at 13:03; Status DC Midazolam HCl (Versed) 5 mg STK-MED ONCE IV Last administered on 08/10/16 13: 01; Start 08/10/16 at 13:01; Stop 08/10/16 at 13:03; Status DC Fentanyl Citrate (Fentanyl 2ml Vial) 100 mcg STK-MED ONCE IV Last administered on 08/10/16 13:02; Start 08/10/16 at 13:02; Stop 08/10/16 at 13:03; Status DC Midazolam HCl (Versed) 5 mg STK-MED ONCE IV Last administered on 08/10/16 13: 03; Start 08/10/16 at 13:03; Stop 08/10/16 at 13:04; Status DC Midazolam HCl (Versed) 5 mg STK-MED ONCE IV Last administered on 08/10/16 13: 15; Start 08/10/16 at 13:15; Stop 08/10/16 at 13:19; Status DC Fentanyl Citrate (Fentanyl 2ml Vial) 100 mcg STK-MED ONCE IV Last administered on 08/10/16 13:17; Start 08/10/16 at 13:17; Stop 08/10/16 at 13:19; Status DC Pantoprazole Sodium 80 mg/ Sodium Chloride 100 ml @ 10 mls/hr Q10H IV Last administered on 08/13/16 21:13; Start 08/10/16 at 13:45 Epinephrine HCl (Epinephrine Syringe) 1 mg STK-MED ONCE .ROUTE ; Start 08/10/16 at 13:42; Stop 08/10/16 at 13:43; Status DC Potassium Chloride (Klor-Con) 40 meq 1X ONCE PO Last administered on 08/13/16 09:42; Start 08/13/16 at 08:45; Stop 08/13/16 at 08:46; Status DC Docusate Sodium (Colace) 100 mg PRN DAILY PRN PO CONSTIPATION Last administered on 08/13/16 09:42; Start 08/13/16 at 08:45 Escitalopram Oxalate (Lexapro) 5 mg DAILY PO Last administered on 08/13/16 09: 42; Start 08/13/16 at 09:00 Acetaminophen (Tylenol) 650 mg PRN Q6HRS PRN PO FEVER; Start 08/13/16 at 12:45 Ondansetron HCl (Zofran) 4 mg PRN Q6HRS PRN IV NAUSEA/VOMITING; Start 08/13/16 at 12:45 Metoprolol Tartrate (Lopressor) 12.5 mg BID PO Last administered on 08/13/16 19 :23; Start 08/13/16 at 15:00 Active Scripts Active Docusate Sodium 100 Mg Capsule 100 Mg PO PRN DAILY PRN Pantoprazole Sodium 40 Mg Tablet.dr 40 Mg PO BIDAC Reported Nifedipine Er (Nifedipine) 30 Mg Tab.er.24 30 Mg PO DAILY Loratadine 10 Mg Tablet 10 Mg PO DAILY Lexapro (Escitalopram Oxalate) 5 Mg Tablet 5 Mg PO DAILY Allergies Allergies: Coded Allergies: iodine (Verified Allergy, Intermediate, 08/14/16) ROS Review of System poor historian General: No: Chills, Other (fevers) PSYCHOLOGICAL ROS: No: Anxiety, Depression Eyes: No Blurry vision, No Double vision HEENT: No: Heacaches, Sore Throat Hematological and Lymphatic: YES: Bleeding Problems, No: Blood Clots Respiratory: No: Cough, Shortness of breath Cardiovascular: No Chest Pain, No Palpitations Gastrointestinal: Yes Vomiting, Yes Abdominal Pain Genitourinary: No Dysuria, No Hematuria Neurological: Yes Confusion, No Impaired Coord/balance Skin: No Pruritus, No Rash Physical Exam General: Alert, Cooperative, No acute distress, Other (confusion, can not recall events of last night ) HEENT: PERRLA, Mucous membr. moist/pink Lungs: Clear to auscultation, Normal air movement Heart: Regular rate, Normal S1, Normal S2 Abdomen: Soft, Other (ND, mildly tender epigastric ) Extremities: No clubbing, No cyanosis Skin: No rashes, No breakdown Neuro: Normal speech, Sensation intact Psych/Mental Status: Mental status NL, Mood NL MUSCULOSKELETAL: No deformity, No swelling Vitals VITALS Vital Signs Date Time Temp Pulse Resp B/P (MAP) Pulse Ox O2 Delivery O2 Flow Rate FiO2 08/14/16 09:00 90 22 110/54 (72) 96 Room Air 08/14/16 07:00 98.7 98.7 Labs Labs Laboratory Tests Test 08/13/16 03:05 08/13/16 22:05 08/14/16 07:50 08/14/16 08:20 White Blood Count 11.5 x10^3/uL (4.0-11.0) 22.3 x10^3/uL (4.0-11.0) 16.7 x10^3/uL (4.0-11.0) Red Blood Count 2.90 x10^6/uL (3.50-5.40) 2.88 x10^6/uL (3.50-5.40) 2.92 x10^6/uL (3.50-5.40) Hemoglobin 8.8 g/dL (12.0-15.5) 8.6 g/dL (12.0-15.5) 8.5 g/dL (12.0-15.5) Hematocrit 25.8 % (36.0-47.0) 25.9 % (36.0-47.0) 25.7 % (36.0-47.0) Mean Corpuscular Volume 89 fL (79-100) 90 fL (79-100) 88 fL (79-100) Mean Corpuscular Hemoglobin 30 pg (25-35) 30 pg (25-35) 29 pg (25-35) Mean Corpuscular Hemoglobin Concent 34 g/dL (31-37) 33 g/dL (31-37) 33 g/dL (31-37) Red Cell Distribution Width 16.8 % (11.5-14.5) 16.7 % (11.5-14.5) 16.6 % (11.5-14.5) Platelet Count 166 x10^3/uL (140-400) 239 x10^3/uL (140-400) 187 x10^3/uL (140-400) Neutrophils (%) (Auto) 79 % (31-73) 92 % (31-73) 81 % (31-73) Lymphocytes (%) (Auto) 12 % (24-48) 5 % (24-48) 11 % (24-48) Monocytes (%) (Auto) 8 % (0-9) 3 % (0-9) 7 % (0-9) Eosinophils (%) (Auto) 1 % (0-3) 0 % (0-3) 0 % (0-3) Basophils (%) (Auto) 0 % (0-3) 1 % (0-3) 0 % (0-3) Neutrophils # (Auto) 9.1 x10^3uL (1.8-7.7) 20.5 x10^3uL (1.8-7.7) 13.5 x10^3uL (1.8-7.7) Lymphocytes # (Auto) 1.4 x10^3/uL (1.0-4.8) 1.1 x10^3/uL (1.0-4.8) 1.9 x10^3/uL (1.0-4.8) Monocytes # (Auto) 0.9 x10^3/uL (0.0-1.1) 0.6 x10^3/uL (0.0-1.1) 1.2 x10^3/uL (0.0-1.1) Eosinophils # (Auto) 0.1 x10^3/uL (0.0-0.7) 0.0 x10^3/uL (0.0-0.7) 0.0 x10^3/uL (0.0-0.7) Basophils # (Auto) 0.0 x10^3/uL (0.0-0.2) 0.1 x10^3/uL (0.0-0.2) 0.0 x10^3/uL (0.0-0.2) Sodium Level 138 mmol/L (136-145) 138 mmol/L (136-145) 140 mmol/L (136-145) Potassium Level 3.4 mmol/L (3.5-5.1) 4.1 mmol/L (3.5-5.1) 4.2 mmol/L (3.5-5.1) Chloride Level 106 mmol/L (98-107) 103 mmol/L (98-107) 107 mmol/L (98-107) Carbon Dioxide Level 25 mmol/L (21-32) 23 mmol/L (21-32) 23 mmol/L (21-32) Anion Gap 7 (6-14) 12 (6-14) 10 (6-14) Blood Urea Nitrogen 34 mg/dL (7-20) 43 mg/dL (7-20) 52 mg/dL (7-20) Creatinine 0.9 mg/dL (0.6-1.0) 1.1 mg/dL (0.6-1.0) 0.9 mg/dL (0.6-1.0) Estimated GFR (Cockcroft-Gault) 59.9 47.6 59.9 Glucose Level 85 mg/dL (70-99) 150 mg/dL (70-99) 120 mg/dL (70-99) Calcium Level 8.0 mg/dL (8.5-10.1) 8.5 mg/dL (8.5-10.1) 8.1 mg/dL (8.5-10.1) Segmented Neutrophils % 85 % (35-66) Band Neutrophils % 4 % (0-9) Lymphocytes % 8 % (24-48) Monocytes % 1 % (0-10) Myelocytes % 2 % (0-0) Platelet Estimate Adequate (ADEQUATE) Polychromasia Slight Anisocytosis Slight Prothrombin Time 14.1 SEC (11.7-14.0) Prothromb Time International Ratio 1.2 (0.8-1.1) Laboratory Tests Test 08/13/16 22:05 08/14/16 07:50 08/14/16 08:20 White Blood Count 22.3 x10^3/uL (4.0-11.0) 16.7 x10^3/uL (4.0-11.0) Red Blood Count 2.88 x10^6/uL (3.50-5.40) 2.92 x10^6/uL (3.50-5.40) Hemoglobin 8.6 g/dL (12.0-15.5) 8.5 g/dL (12.0-15.5) Hematocrit 25.9 % (36.0-47.0) 25.7 % (36.0-47.0) Mean Corpuscular Volume 90 fL (79-100) 88 fL (79-100) Mean Corpuscular Hemoglobin 30 pg (25-35) 29 pg (25-35) Mean Corpuscular Hemoglobin Concent 33 g/dL (31-37) 33 g/dL (31-37) Red Cell Distribution Width 16.7 % (11.5-14.5) 16.6 % (11.5-14.5) Platelet Count 239 x10^3/uL (140-400) 187 x10^3/uL (140-400) Neutrophils (%) (Auto) 92 % (31-73) 81 % (31-73) Lymphocytes (%) (Auto) 5 % (24-48) 11 % (24-48) Monocytes (%) (Auto) 3 % (0-9) 7 % (0-9) Eosinophils (%) (Auto) 0 % (0-3) 0 % (0-3) Basophils (%) (Auto) 1 % (0-3) 0 % (0-3) Neutrophils # (Auto) 20.5 x10^3uL (1.8-7.7) 13.5 x10^3uL (1.8-7.7) Lymphocytes # (Auto) 1.1 x10^3/uL (1.0-4.8) 1.9 x10^3/uL (1.0-4.8) Monocytes # (Auto) 0.6 x10^3/uL (0.0-1.1) 1.2 x10^3/uL (0.0-1.1) Eosinophils # (Auto) 0.0 x10^3/uL (0.0-0.7) 0.0 x10^3/uL (0.0-0.7) Basophils # (Auto) 0.1 x10^3/uL (0.0-0.2) 0.0 x10^3/uL (0.0-0.2) Segmented Neutrophils % 85 % (35-66) Band Neutrophils % 4 % (0-9) Lymphocytes % 8 % (24-48) Monocytes % 1 % (0-10) Myelocytes % 2 % (0-0) Platelet Estimate Adequate (ADEQUATE) Polychromasia Slight Anisocytosis Slight Sodium Level 138 mmol/L (136-145) 140 mmol/L (136-145) Potassium Level 4.1 mmol/L (3.5-5.1) 4.2 mmol/L (3.5-5.1) Chloride Level 103 mmol/L (98-107) 107 mmol/L (98-107) Carbon Dioxide Level 23 mmol/L (21-32) 23 mmol/L (21-32) Anion Gap 12 (6-14) 10 (6-14) Blood Urea Nitrogen 43 mg/dL (7-20) 52 mg/dL (7-20) Creatinine 1.1 mg/dL (0.6-1.0) 0.9 mg/dL (0.6-1.0) Estimated GFR (Cockcroft-Gault) 47.6 59.9 Glucose Level 150 mg/dL (70-99) 120 mg/dL (70-99) Calcium Level 8.5 mg/dL (8.5-10.1) 8.1 mg/dL (8.5-10.1) Prothrombin Time 14.1 SEC (11.7-14.0) Prothromb Time International Ratio 1.2 (0.8-1.1) Assessment/Plan Assessment/Plan DU/stricture, GI bleed, previous endoscopy, IR embolization Dementia, HTN Agree with GI eval, IR eval no surgical plans at this point NATALIA ADAIR MD 08/14/16 1750: CONSULT Allergies Allergies: Coded Allergies: iodine (Verified Allergy, Intermediate, 08/14/16) Assessment/Plan Assessment/Plan Reviewed, agree with above DALLAS MORRIS APRN August 14, 2016 09:46 NATALIA ADAIR MD August 14, 2016 17:50
[2016-08-14] MEDS ORDERED: IV RINGERS,LACTATED 1000ML 1,000 ML IV SCH ×2 (10:51→14:51)
[2016-08-14] MEDS ORDERED: LIDOCAINE 1% 1 ML SYRINGE. ID PRN (15:00)
[2016-08-14] MEDS ORDERED: MIDAZOLAM HCL/PF 2 MG/2 ML VIAL. IV PRN (15:00)
[2016-08-14] MEDS ORDERED: fentaNYL PF VIAL 100 MCG/2 ML VIAL IV PRN ×2 (15:00)
[2016-08-14] MEDS ORDERED: LIDOCAINE 2% PF Vial for OR 5 ML VIAL. ONE (17:32)
[2016-08-14] MEDS ORDERED: PROPOFOL 20 ML IV ONE (17:32)
--- NOTE | 2016-08-14 17:49 | PDOC4 ---
PROCEDURE Procedure EGD IND: Recurrent UGI bleeding Meds: per anesthesia Findings: E-Multiple erosions mid-->distal esophagus with some friability at GEJ. Not really a MW tear. G-Normal D-Stricture at apex of bulb. Did not see ulcer, but friable tissue. Unable to pass stricture. No blood seen. Farrah. well. IMP: Esophagitis reflux +/- emesis No ulcer seen, but duodenum stricturing. REC: Continue as now. If stays stable, out of ICU and po (solutab) PPI tomorrow. MAINE HENRIQUEZ MD August 14, 2016 17:49
[2016-08-15] VITALS (30 sets, daily range): BP systolic 85–135; BP diastolic 39–69
[2016-08-15] MEDS: PANTOPRAZOLE SODIUM IV 80 MG in IV NORMAL SALINE 100ML 100 ML IV SCH ×4 (00:18→23:45)
[2016-08-15 04:42] LABS: BASO % 0 % (0-3); EOS % 1 % (0-3); LYMPH # 1.2 x10^3/uL (1.0-4.8); LYMPH % 11 % (24-48); MEAN CORPUSCULAR HEMOGLOBIN 30 pg (25-35); MEAN CORPUSCULAR HGB CONC 34 g/dL (31-37); MEAN CORPUSCULAR VOLUME 88 fL (79-100); MONO % 8 % (0-9); NEUT % 79 % (31-73); PLATELET COUNT 164 x10^3/uL (140-400); RED BLOOD COUNT 2.31 x10^6/uL (3.50-5.40); RED CELL DISTRIBUTION WIDTH 17.3 % (11.5-14.5); WHITE BLOOD COUNT 10.8 x10^3/uL (4.0-11.0)
[2016-08-15 04:49] LABS: HEMATOCRIT 20.4 % (36.0-47.0)
[2016-08-15 05:12] LABS: CALCIUM 8.1 mg/dL (8.5-10.1); CREATININE 0.8 mg/dL (0.6-1.0); GFR 68.7; POTASSIUM 3.7 mmol/L (3.5-5.1)
[2016-08-15] MEDS: ESCITALOPRAM 5 MG TABLET. PO SCH (09:13)
[2016-08-15] MEDS: METOPROLOL TART IMMED RELEASE 25 MG TABLET. PO SCH ×2 (09:14→20:58)
--- NOTE | 2016-08-15 10:13 | PDOC ---
PROGRESS NOTES Chief Complaint Chief Complaint 1. Duodenal GIB, acute : s/p dual scopes 07/11 and embolization on 07/12, this time got cautery and epi 08/10 2. Anemia: acute blood loss, upper, 3. Dehydration 4. GELA, vasomotor 5. Uremia: 2/2 UGIB. 6. Dementia: moderate 7. HTN: on nifedipine at home 8. SIRS, no sepsis 9. hypokalemia on protonix drip History of Present Illness History of Present Illness hgb more stable still in ICU, vitals stable, no further vomiting discussed with GI team, continue to monitor hgb, NO ABD PAIN Vitals Vitals Vital Signs Date Time Temp Pulse Resp B/P (MAP) Pulse Ox O2 Delivery O2 Flow Rate FiO2 08/15/16 09:15 98.6 81 18 124/69 98.6 08/15/16 09:00 100 Room Air 08/14/16 18:20 2 Physical Exam General: Alert, Cooperative, No acute distress, Other (confusion, can not recall events of last night ) Heart: Regular rate, Normal S1, Normal S2, No murmurs Lungs: Clear Abdomen: Soft, Other (ND, mildly tender epigastric ) Extremities: No clubbing, No cyanosis Skin: No rashes, No breakdown Labs LABS Laboratory Tests Test 08/15/16 04:15 White Blood Count 10.8 x10^3/uL (4.0-11.0) Red Blood Count 2.31 x10^6/uL (3.50-5.40) Hemoglobin 7.0 g/dL (12.0-15.5) Hematocrit 20.4 % (36.0-47.0) Mean Corpuscular Volume 88 fL (79-100) Mean Corpuscular Hemoglobin 30 pg (25-35) Mean Corpuscular Hemoglobin Concent 34 g/dL (31-37) Red Cell Distribution Width 17.3 % (11.5-14.5) Platelet Count 164 x10^3/uL (140-400) Neutrophils (%) (Auto) 79 % (31-73) Lymphocytes (%) (Auto) 11 % (24-48) Monocytes (%) (Auto) 8 % (0-9) Eosinophils (%) (Auto) 1 % (0-3) Basophils (%) (Auto) 0 % (0-3) Neutrophils # (Auto) 8.5 x10^3uL (1.8-7.7) Lymphocytes # (Auto) 1.2 x10^3/uL (1.0-4.8) Monocytes # (Auto) 0.9 x10^3/uL (0.0-1.1) Eosinophils # (Auto) 0.1 x10^3/uL (0.0-0.7) Basophils # (Auto) 0.0 x10^3/uL (0.0-0.2) Sodium Level 142 mmol/L (136-145) Potassium Level 3.7 mmol/L (3.5-5.1) Chloride Level 109 mmol/L (98-107) Carbon Dioxide Level 25 mmol/L (21-32) Anion Gap 8 (6-14) Blood Urea Nitrogen 34 mg/dL (7-20) Creatinine 0.8 mg/dL (0.6-1.0) Estimated GFR (Cockcroft-Gault) 68.7 Glucose Level 96 mg/dL (70-99) Calcium Level 8.1 mg/dL (8.5-10.1) Review of Systems Review of Systems no n.v.d Assessment and Plan Assessmemt and Plan Problems Medical Problems: (1) GIB (gastrointestinal bleeding) Status: Acute (2) Upper GI bleed Status: Acute Problems: Comment Review of Relevant I have reviewed the following items jose luis (where applicable) has been applied. Labs Laboratory Tests Test 08/13/16 22:05 08/14/16 07:50 08/14/16 08:20 08/15/16 04:15 White Blood Count 22.3 x10^3/uL (4.0-11.0) 16.7 x10^3/uL (4.0-11.0) 10.8 x10^3/uL (4.0-11.0) Red Blood Count 2.88 x10^6/uL (3.50-5.40) 2.92 x10^6/uL (3.50-5.40) 2.31 x10^6/uL (3.50-5.40) Hemoglobin 8.6 g/dL (12.0-15.5) 8.5 g/dL (12.0-15.5) 7.0 g/dL (12.0-15.5) Hematocrit 25.9 % (36.0-47.0) 25.7 % (36.0-47.0) 20.4 % (36.0-47.0) Mean Corpuscular Volume 90 fL (79-100) 88 fL (79-100) 88 fL (79-100) Mean Corpuscular Hemoglobin 30 pg (25-35) 29 pg (25-35) 30 pg (25-35) Mean Corpuscular Hemoglobin Concent 33 g/dL (31-37) 33 g/dL (31-37) 34 g/dL (31-37) Red Cell Distribution Width 16.7 % (11.5-14.5) 16.6 % (11.5-14.5) 17.3 % (11.5-14.5) Platelet Count 239 x10^3/uL (140-400) 187 x10^3/uL (140-400) 164 x10^3/uL (140-400) Neutrophils (%) (Auto) 92 % (31-73) 81 % (31-73) 79 % (31-73) Lymphocytes (%) (Auto) 5 % (24-48) 11 % (24-48) 11 % (24-48) Monocytes (%) (Auto) 3 % (0-9) 7 % (0-9) 8 % (0-9) Eosinophils (%) (Auto) 0 % (0-3) 0 % (0-3) 1 % (0-3) Basophils (%) (Auto) 1 % (0-3) 0 % (0-3) 0 % (0-3) Neutrophils # (Auto) 20.5 x10^3uL (1.8-7.7) 13.5 x10^3uL (1.8-7.7) 8.5 x10^3uL (1.8-7.7) Lymphocytes # (Auto) 1.1 x10^3/uL (1.0-4.8) 1.9 x10^3/uL (1.0-4.8) 1.2 x10^3/uL (1.0-4.8) Monocytes # (Auto) 0.6 x10^3/uL (0.0-1.1) 1.2 x10^3/uL (0.0-1.1) 0.9 x10^3/uL (0.0-1.1) Eosinophils # (Auto) 0.0 x10^3/uL (0.0-0.7) 0.0 x10^3/uL (0.0-0.7) 0.1 x10^3/uL (0.0-0.7) Basophils # (Auto) 0.1 x10^3/uL (0.0-0.2) 0.0 x10^3/uL (0.0-0.2) 0.0 x10^3/uL (0.0-0.2) Segmented Neutrophils % 85 % (35-66) Band Neutrophils % 4 % (0-9) Lymphocytes % 8 % (24-48) Monocytes % 1 % (0-10) Myelocytes % 2 % (0-0) Platelet Estimate Adequate (ADEQUATE) Polychromasia Slight Anisocytosis Slight Sodium Level 138 mmol/L (136-145) 140 mmol/L (136-145) 142 mmol/L (136-145) Potassium Level 4.1 mmol/L (3.5-5.1) 4.2 mmol/L (3.5-5.1) 3.7 mmol/L (3.5-5.1) Chloride Level 103 mmol/L (98-107) 107 mmol/L (98-107) 109 mmol/L (98-107) Carbon Dioxide Level 23 mmol/L (21-32) 23 mmol/L (21-32) 25 mmol/L (21-32) Anion Gap 12 (6-14) 10 (6-14) 8 (6-14) Blood Urea Nitrogen 43 mg/dL (7-20) 52 mg/dL (7-20) 34 mg/dL (7-20) Creatinine 1.1 mg/dL (0.6-1.0) 0.9 mg/dL (0.6-1.0) 0.8 mg/dL (0.6-1.0) Estimated GFR (Cockcroft-Gault) 47.6 59.9 68.7 Glucose Level 150 mg/dL (70-99) 120 mg/dL (70-99) 96 mg/dL (70-99) Calcium Level 8.5 mg/dL (8.5-10.1) 8.1 mg/dL (8.5-10.1) 8.1 mg/dL (8.5-10.1) Prothrombin Time 14.1 SEC (11.7-14.0) Prothromb Time International Ratio 1.2 (0.8-1.1) Laboratory Tests Test 08/15/16 04:15 White Blood Count 10.8 x10^3/uL (4.0-11.0) Red Blood Count 2.31 x10^6/uL (3.50-5.40) Hemoglobin 7.0 g/dL (12.0-15.5) Hematocrit 20.4 % (36.0-47.0) Mean Corpuscular Volume 88 fL (79-100) Mean Corpuscular Hemoglobin 30 pg (25-35) Mean Corpuscular Hemoglobin Concent 34 g/dL (31-37) Red Cell Distribution Width 17.3 % (11.5-14.5) Platelet Count 164 x10^3/uL (140-400) Neutrophils (%) (Auto) 79 % (31-73) Lymphocytes (%) (Auto) 11 % (24-48) Monocytes (%) (Auto) 8 % (0-9) Eosinophils (%) (Auto) 1 % (0-3) Basophils (%) (Auto) 0 % (0-3) Neutrophils # (Auto) 8.5 x10^3uL (1.8-7.7) Lymphocytes # (Auto) 1.2 x10^3/uL (1.0-4.8) Monocytes # (Auto) 0.9 x10^3/uL (0.0-1.1) Eosinophils # (Auto) 0.1 x10^3/uL (0.0-0.7) Basophils # (Auto) 0.0 x10^3/uL (0.0-0.2) Sodium Level 142 mmol/L (136-145) Potassium Level 3.7 mmol/L (3.5-5.1) Chloride Level 109 mmol/L (98-107) Carbon Dioxide Level 25 mmol/L (21-32) Anion Gap 8 (6-14) Blood Urea Nitrogen 34 mg/dL (7-20) Creatinine 0.8 mg/dL (0.6-1.0) Estimated GFR (Cockcroft-Gault) 68.7 Glucose Level 96 mg/dL (70-99) Calcium Level 8.1 mg/dL (8.5-10.1) Medications Current Medications Pantoprazole Sodium (Protonix Vial) 40 mg 1X ONCE IVP Last administered on 10:22; Start 08/10/16 at 10:00; Stop 08/10/16 at 10:08; Status DC Ondansetron HCl (Zofran) 4 mg 1X ONCE IV Last administered on 08/10/16 10:22 ; Start 08/10/16 at 10:00; Stop 08/10/16 at 10:08; Status DC Fentanyl Citrate (Fentanyl 2ml Vial) 25 mcg 1X ONCE IV Last administered on 10:23; Start 08/10/16 at 10:00; Stop 08/10/16 at 10:08; Status DC Sodium Chloride 500 ml @ 500 mls/hr 1X ONCE IV Last administered on 10:22; Start 08/10/16 at 10:30; Stop 08/10/16 at 11:29; Status DC Ondansetron HCl (Zofran) 4 mg PRN Q8HRS PRN IV NAUSEA/VOMITING; Start 08/10/16 at 11:00; Stop 08/11/16 at 10:59; Status DC Fentanyl Citrate (Fentanyl 2ml Vial) 50 mcg PRN Q2HR PRN IV PAIN; Start at 11:00; Stop 08/11/16 at 10:59; Status DC Acetaminophen (Tylenol) 650 mg PRN Q4HRS PRN PO FEVER; Start 08/10/16 at 11:00 ; Stop 08/11/16 at 10:59; Status DC Potassium Chloride/Dextrose/ Sod Cl 1,000 ml @ 75 mls/hr 1X ONCE IV Last administered on 08/10/16 11:51; Start 08/10/16 at 11:00; Stop 08/11/16 at 00:19 ; Status DC Metoclopramide HCl (Reglan) 5 mg 1X STAT IV Last administered on 08/10/16 12: 22; Start 08/10/16 at 11:10; Stop 08/10/16 at 11:29; Status DC Erythromycin Lactobionate 250 mg/Sodium Chloride 100 ml @ 100 mls/hr ONCE STAT IV Last administered on 08/10/16 12:23; Start 08/10/16 at 11:11; Stop at 12:10; Status DC Midazolam HCl (Versed) 5 mg STK-MED ONCE .ROUTE ; Start 08/10/16 at 12:38; Stop 08/10/16 at 12:39; Status DC Midazolam HCl (Versed) 5 mg STK-MED ONCE IV Last administered on 08/10/16 12: 59; Start 08/10/16 at 12:59; Stop 08/10/16 at 13:03; Status DC Fentanyl Citrate (Fentanyl 2ml Vial) 100 mcg STK-MED ONCE IV Last administered on 08/10/16 13:00; Start 08/10/16 at 13:00; Stop 08/10/16 at 13:03; Status DC Midazolam HCl (Versed) 5 mg STK-MED ONCE IV Last administered on 08/10/16 13: 01; Start 08/10/16 at 13:01; Stop 08/10/16 at 13:03; Status DC Fentanyl Citrate (Fentanyl 2ml Vial) 100 mcg STK-MED ONCE IV Last administered on 08/10/16 13:02; Start 08/10/16 at 13:02; Stop 08/10/16 at 13:03; Status DC Midazolam HCl (Versed) 5 mg STK-MED ONCE IV Last administered on 08/10/16 13: 03; Start 08/10/16 at 13:03; Stop 08/10/16 at 13:04; Status DC Midazolam HCl (Versed) 5 mg STK-MED ONCE IV Last administered on 08/10/16 13: 15; Start 08/10/16 at 13:15; Stop 08/10/16 at 13:19; Status DC Fentanyl Citrate (Fentanyl 2ml Vial) 100 mcg STK-MED ONCE IV Last administered on 08/10/16 13:17; Start 08/10/16 at 13:17; Stop 08/10/16 at 13:19; Status DC Pantoprazole Sodium 80 mg/ Sodium Chloride 100 ml @ 10 mls/hr Q10H IV Last administered on 08/15/16 00:18; Start 08/10/16 at 13:45 Epinephrine HCl (Epinephrine Syringe) 1 mg STK-MED ONCE .ROUTE ; Start 08/10/16 at 13:42; Stop 08/10/16 at 13:43; Status DC Potassium Chloride (Klor-Con) 40 meq 1X ONCE PO Last administered on 08/13/16 09:42; Start 08/13/16 at 08:45; Stop 08/13/16 at 08:46; Status DC Docusate Sodium (Colace) 100 mg PRN DAILY PRN PO CONSTIPATION Last administered on 08/13/16 09:42; Start 08/13/16 at 08:45 Escitalopram Oxalate (Lexapro) 5 mg DAILY PO Last administered on 08/15/16 09: 13; Start 08/13/16 at 09:00 Acetaminophen (Tylenol) 650 mg PRN Q6HRS PRN PO FEVER; Start 08/13/16 at 12:45 Ondansetron HCl (Zofran) 4 mg PRN Q6HRS PRN IV NAUSEA/VOMITING; Start 08/13/16 at 12:45 Metoprolol Tartrate (Lopressor) 12.5 mg BID PO Last administered on 08/15/16 09 :14; Start 08/13/16 at 15:00 Midazolam HCl (Versed) 2 mg PRN 1X PRN IV PRIOR TO PROCEDURE; Start 08/14/16 at 15:00; Stop 08/14/16 at 20:00; Status DC Fentanyl Citrate (Fentanyl 2ml Vial) 25 mcg PRN Q5MIN PRN IV X 2 DOSES FOR PAIN ; Start 08/14/16 at 15:00; Stop 08/15/16 at 14:59 Fentanyl Citrate (Fentanyl 2ml Vial) 50 mcg PRN Q5MIN PRN IV X 2 DOSES FOR PAIN ; Start 08/14/16 at 15:00; Stop 08/14/16 at 20:00; Status DC Lidocaine HCl 2 ml 1X PRN PRN ID IV START; Start 08/14/16 at 15:00; Stop at 20:00; Status DC Propofol 20 ml @ As Directed STK-MED ONCE IV ; Start 08/14/16 at 17:32; Stop 08/14 at 17:33; Status DC Lidocaine HCl (Lidocaine Pf 2% Vial) 5 ml STK-MED ONCE .ROUTE ; Start 08/14/16 at 17:32; Stop 08/14/16 at 17:33; Status DC Active Scripts Active Docusate Sodium 100 Mg Capsule 100 Mg PO PRN DAILY PRN Pantoprazole Sodium 40 Mg Tablet.dr 40 Mg PO BIDAC Reported Nifedipine Er (Nifedipine) 30 Mg Tab.er.24 30 Mg PO DAILY Loratadine 10 Mg Tablet 10 Mg PO DAILY Lexapro (Escitalopram Oxalate) 5 Mg Tablet 5 Mg PO DAILY Vitals/I & O Vital Sign - Last 24 Hours 08/14/16 08/14/16 08/14/16 08/14/16 11:00 12:00 12:00 13:00 Temp 98.6 98.6 Pulse 84 89 90 Resp 18 18 B/P (MAP) 110/55 (73) 110/55 (73) 99/46 (63) Pulse Ox 96 95 95 O2 Delivery Room Air Room Air Room Air Room Air 08/14/16 08/14/16 08/14/16 08/14/16 14:00 14:43 14:45 17:47 Temp 97 97.0 Pulse 84 85 80 Resp 20 B/P (MAP) 125/60 (81) 92/38 Pulse Ox 96 97 100 O2 Delivery Room Air Room Air Room Air O2 Flow Rate 2.0 2.0 08/14/16 08/14/16 08/14/16 08/14/16 18:03 18:20 18:30 19:00 Pulse 88 84 81 82 Resp 18 18 17 14 B/P (MAP) 118/78 126/52 (76) 126/52 (76) Pulse Ox 99 99 97 O2 Delivery Nasal Cannula Nasal Cannula Room Air Room Air O2 Flow Rate 2 2 08/14/16 08/14/16 08/14/16 08/14/16 20:00 20:00 21:00 21:00 Temp 98.2 98.2 Pulse 82 84 86 Resp 17 14 B/P (MAP) 123/52 (75) 116/43 (67) 116/43 Pulse Ox 97 98 O2 Delivery Room Air Room Air Room Air 08/14/16 08/14/16 08/15/16 08/15/16 22:00 23:00 00:00 00:00 Temp 98.3 98.3 Pulse 76 75 75 Resp 14 18 19 B/P (MAP) 116/46 (69) 123/58 (79) 128/46 (73) Pulse Ox 98 98 98 O2 Delivery Room Air Room Air Room Air Room Air 08/15/16 08/15/16 08/15/16 08/15/16 01:00 02:00 03:00 04:00 Pulse 80 76 76 Resp 14 16 14 B/P (MAP) 99/55 (70) 103/39 (60) 99/55 (70) Pulse Ox 98 100 98 O2 Delivery Room Air Room Air Room Air Room Air 08/15/16 08/15/16 08/15/16 08/15/16 04:00 05:00 06:00 07:00 Temp 98.2 98.2 Pulse 74 81 72 74 Resp 17 14 14 16 B/P (MAP) 103/39 (60) 106/56 (73) 106/52 (70) 134/54 (80) Pulse Ox 100 100 100 99 O2 Delivery Room Air Room Air Room Air Room Air 08/15/16 08/15/16 08/15/16 08/15/16 08:00 08:44 08:45 09:00 Temp 98.5 98.5 98.5 98.5 98.5 98.5 Pulse 74 81 81 76 Resp 20 18 18 16 B/P (MAP) 113/54 (73) 113/51 113/51 115/54 (74) Pulse Ox 99 100 O2 Delivery Room Air Room Air 08/15/16 08/15/16 08/15/16 09:00 09:14 09:15 Temp 97.7 98.6 97.7 98.6 Pulse 84 84 81 Resp 16 18 B/P (MAP) 124/69 124/69 124/69 Intake and Output 08/14/16 08/14/16 08/15/16 15:00 23:00 07:00 Intake Total 500 ml 192 ml Balance 500 ml 192 ml HAYDE PAREKH MD August 15, 2016 10:13
--- NOTE | 2016-08-15 11:41 | PDOC ---
DALLAS MORRIS [employer] 08/15/16 1141: SURGICAL PROGRESS NOTE Subjective denies pain just back from nuc study Vital Signs Vital Signs Date Time Temp Pulse Resp B/P (MAP) Pulse Ox O2 Delivery O2 Flow Rate FiO2 08/15/16 11:00 76 18 112/60 (77) 97 Room Air 08/15/16 09:15 98.6 98.6 08/14/16 18:20 2 I&O Intake and Output 08/15/16 07:00 Intake Total 692 ml Balance 692 ml Intake Oral 0 ml IV Total 692 ml # Voids 1 General: Alert, Oriented X3, Cooperative, No acute distress Abdomen: Soft, No tenderness Labs Laboratory Tests Test 08/13/16 22:05 08/14/16 07:50 08/14/16 08:20 08/15/16 04:15 White Blood Count 22.3 x10^3/uL (4.0-11.0) 16.7 x10^3/uL (4.0-11.0) 10.8 x10^3/uL (4.0-11.0) Red Blood Count 2.88 x10^6/uL (3.50-5.40) 2.92 x10^6/uL (3.50-5.40) 2.31 x10^6/uL (3.50-5.40) Hemoglobin 8.6 g/dL (12.0-15.5) 8.5 g/dL (12.0-15.5) 7.0 g/dL (12.0-15.5) Hematocrit 25.9 % (36.0-47.0) 25.7 % (36.0-47.0) 20.4 % (36.0-47.0) Mean Corpuscular Volume 90 fL (79-100) 88 fL (79-100) 88 fL (79-100) Mean Corpuscular Hemoglobin 30 pg (25-35) 29 pg (25-35) 30 pg (25-35) Mean Corpuscular Hemoglobin Concent 33 g/dL (31-37) 33 g/dL (31-37) 34 g/dL (31-37) Red Cell Distribution Width 16.7 % (11.5-14.5) 16.6 % (11.5-14.5) 17.3 % (11.5-14.5) Platelet Count 239 x10^3/uL (140-400) 187 x10^3/uL (140-400) 164 x10^3/uL (140-400) Neutrophils (%) (Auto) 92 % (31-73) 81 % (31-73) 79 % (31-73) Lymphocytes (%) (Auto) 5 % (24-48) 11 % (24-48) 11 % (24-48) Monocytes (%) (Auto) 3 % (0-9) 7 % (0-9) 8 % (0-9) Eosinophils (%) (Auto) 0 % (0-3) 0 % (0-3) 1 % (0-3) Basophils (%) (Auto) 1 % (0-3) 0 % (0-3) 0 % (0-3) Neutrophils # (Auto) 20.5 x10^3uL (1.8-7.7) 13.5 x10^3uL (1.8-7.7) 8.5 x10^3uL (1.8-7.7) Lymphocytes # (Auto) 1.1 x10^3/uL (1.0-4.8) 1.9 x10^3/uL (1.0-4.8) 1.2 x10^3/uL (1.0-4.8) Monocytes # (Auto) 0.6 x10^3/uL (0.0-1.1) 1.2 x10^3/uL (0.0-1.1) 0.9 x10^3/uL (0.0-1.1) Eosinophils # (Auto) 0.0 x10^3/uL (0.0-0.7) 0.0 x10^3/uL (0.0-0.7) 0.1 x10^3/uL (0.0-0.7) Basophils # (Auto) 0.1 x10^3/uL (0.0-0.2) 0.0 x10^3/uL (0.0-0.2) 0.0 x10^3/uL (0.0-0.2) Segmented Neutrophils % 85 % (35-66) Band Neutrophils % 4 % (0-9) Lymphocytes % 8 % (24-48) Monocytes % 1 % (0-10) Myelocytes % 2 % (0-0) Platelet Estimate Adequate (ADEQUATE) Polychromasia Slight Anisocytosis Slight Sodium Level 138 mmol/L (136-145) 140 mmol/L (136-145) 142 mmol/L (136-145) Potassium Level 4.1 mmol/L (3.5-5.1) 4.2 mmol/L (3.5-5.1) 3.7 mmol/L (3.5-5.1) Chloride Level 103 mmol/L (98-107) 107 mmol/L (98-107) 109 mmol/L (98-107) Carbon Dioxide Level 23 mmol/L (21-32) 23 mmol/L (21-32) 25 mmol/L (21-32) Anion Gap 12 (6-14) 10 (6-14) 8 (6-14) Blood Urea Nitrogen 43 mg/dL (7-20) 52 mg/dL (7-20) 34 mg/dL (7-20) Creatinine 1.1 mg/dL (0.6-1.0) 0.9 mg/dL (0.6-1.0) 0.8 mg/dL (0.6-1.0) Estimated GFR (Cockcroft-Gault) 47.6 59.9 68.7 Glucose Level 150 mg/dL (70-99) 120 mg/dL (70-99) 96 mg/dL (70-99) Calcium Level 8.5 mg/dL (8.5-10.1) 8.1 mg/dL (8.5-10.1) 8.1 mg/dL (8.5-10.1) Prothrombin Time 14.1 SEC (11.7-14.0) Prothromb Time International Ratio 1.2 (0.8-1.1) Laboratory Tests Test 08/15/16 04:15 White Blood Count 10.8 x10^3/uL (4.0-11.0) Red Blood Count 2.31 x10^6/uL (3.50-5.40) Hemoglobin 7.0 g/dL (12.0-15.5) Hematocrit 20.4 % (36.0-47.0) Mean Corpuscular Volume 88 fL (79-100) Mean Corpuscular Hemoglobin 30 pg (25-35) Mean Corpuscular Hemoglobin Concent 34 g/dL (31-37) Red Cell Distribution Width 17.3 % (11.5-14.5) Platelet Count 164 x10^3/uL (140-400) Neutrophils (%) (Auto) 79 % (31-73) Lymphocytes (%) (Auto) 11 % (24-48) Monocytes (%) (Auto) 8 % (0-9) Eosinophils (%) (Auto) 1 % (0-3) Basophils (%) (Auto) 0 % (0-3) Neutrophils # (Auto) 8.5 x10^3uL (1.8-7.7) Lymphocytes # (Auto) 1.2 x10^3/uL (1.0-4.8) Monocytes # (Auto) 0.9 x10^3/uL (0.0-1.1) Eosinophils # (Auto) 0.1 x10^3/uL (0.0-0.7) Basophils # (Auto) 0.0 x10^3/uL (0.0-0.2) Sodium Level 142 mmol/L (136-145) Potassium Level 3.7 mmol/L (3.5-5.1) Chloride Level 109 mmol/L (98-107) Carbon Dioxide Level 25 mmol/L (21-32) Anion Gap 8 (6-14) Blood Urea Nitrogen 34 mg/dL (7-20) Creatinine 0.8 mg/dL (0.6-1.0) Estimated GFR (Cockcroft-Gault) 68.7 Glucose Level 96 mg/dL (70-99) Calcium Level 8.1 mg/dL (8.5-10.1) Problem List Problems Medical Problems: (1) GIB (gastrointestinal bleeding) Status: Acute (2) Upper GI bleed Status: Acute Assessment/Plan GI bleed noted endoscopy report, no ulcer, duodenal stricture, friable tissue no bleeding source identified hgb drop from 8.5 to 7, some hypotension last night--received 1 unit of blood bleeding scan is pending would rec notifying IR, any recs on CTA, possible embolization --reviewed note from yesterday I d/w Dr Doss will follow patient Problems: NATALIA DOSS MD 08/15/16 1433: SURGICAL PROGRESS NOTE Assessment/Plan Reviewed, endoscopy report noted, bleeding scan neg; poor surgical candidate and not sure amenable to surgical correction given "friable tissue" on EGD; cont with medial management Problems: DALLAS MORRIS APRN August 15, 2016 11:41 NATALIA DOSS MD August 15, 2016 14:33
--- NOTE | 2016-08-15 11:50 | RAD ---
Radionuclide GI bleeding scan, 08/15/2016: History: Low hemoglobin The study was performed utilizing 30 mCi of technetium 99m and a labeled red blood cell technique. Imaging obtained out to one area shows no abnormal accumulation of activity in the abdomen or pelvis to suggest active GI tract bleeding. IMPRESSION: Negative radionuclide GI bleeding scan
--- NOTE | 2016-08-15 12:35 | PDOC ---
Subjective: Subjective: No obvious bleeding. No n/v or abd pain. Has not stooled. Has pain in both arms. Objective: Vital Signs: Vital Signs Date Time Temp Pulse Resp B/P (MAP) Pulse Ox O2 Delivery O2 Flow Rate FiO2 08/15/16 12:00 98.2 73 18 126/61 (82) 98 Room Air 98.2 08/14/16 18:20 2 Labs: Laboratory Tests Test 08/15/16 04:15 White Blood Count 10.8 x10^3/uL Red Blood Count 2.31 x10^6/uL Hemoglobin 7.0 g/dL Hematocrit 20.4 % Mean Corpuscular Volume 88 fL Mean Corpuscular Hemoglobin 30 pg Mean Corpuscular Hemoglobin Concent 34 g/dL Red Cell Distribution Width 17.3 % Platelet Count 164 x10^3/uL Neutrophils (%) (Auto) 79 % Lymphocytes (%) (Auto) 11 % Monocytes (%) (Auto) 8 % Eosinophils (%) (Auto) 1 % Basophils (%) (Auto) 0 % Neutrophils # (Auto) 8.5 x10^3uL Lymphocytes # (Auto) 1.2 x10^3/uL Monocytes # (Auto) 0.9 x10^3/uL Eosinophils # (Auto) 0.1 x10^3/uL Basophils # (Auto) 0.0 x10^3/uL Sodium Level 142 mmol/L Potassium Level 3.7 mmol/L Chloride Level 109 mmol/L Carbon Dioxide Level 25 mmol/L Anion Gap 8 Blood Urea Nitrogen 34 mg/dL Creatinine 0.8 mg/dL Estimated GFR (Cockcroft-Gault) 68.7 Glucose Level 96 mg/dL Calcium Level 8.1 mg/dL Imaging: EGD 08/14/16 E-Multiple erosions mid-->distal esophagus with some friability at GEJ. Not really a MW tear. G-Normal D-Stricture at apex of bulb. Did not see ulcer, but friable tissue. Unable to pass stricture. No blood seen. Bleed Scan 08/15/16 IMPRESSION: Negative radionuclide GI bleeding scan. PE: GEN: NAD LUNGS: CTAB HEART: RRR ABD: S/ND/NT NEURO/PSYCH: A & O 3 A/P: Recurrent upper GI bleeding -on PPI drip -repeat EGD w/ esophagitis and duod stricture -Hgb dropped, GI bleed scan neg -surg, IR following ---> ?CTA -- Will review w/ Dr. Alfonso. ASHWINI WEBB August 15, 2016 12:35
[2016-08-15 15:16] LABS: HEMOGLOBIN 8.3 g/dL (12.0-15.5); RED BLOOD COUNT 2.81 x10^6/uL (3.50-5.40); RED CELL DISTRIBUTION WIDTH 17.4 % (11.5-14.5); WHITE BLOOD COUNT 11.6 x10^3/uL (4.0-11.0)
[2016-08-16] VITALS (13 sets, daily range): BP systolic 105–138; BP diastolic 44–67
[2016-08-16 05:45] LABS: BASO % 0 % (0-3); EOS % 1 % (0-3); HEMATOCRIT 23.8 % (36.0-47.0); LYMPH # 1.2 x10^3/uL (1.0-4.8); LYMPH % 10 % (24-48); MEAN CORPUSCULAR HEMOGLOBIN 29 pg (25-35); MEAN CORPUSCULAR HGB CONC 34 g/dL (31-37); MEAN CORPUSCULAR VOLUME 87 fL (79-100); MONO % 10 % (0-9); NEUT % 79 % (31-73); PLATELET COUNT 179 x10^3/uL (140-400); RED BLOOD COUNT 2.75 x10^6/uL (3.50-5.40); RED CELL DISTRIBUTION WIDTH 17.6 % (11.5-14.5); WHITE BLOOD COUNT 11.5 x10^3/uL (4.0-11.0)
[2016-08-16 06:03] LABS: CALCIUM 8.1 mg/dL (8.5-10.1); CREATININE 0.7 mg/dL (0.6-1.0); GFR 80.1; POTASSIUM 3.3 mmol/L (3.5-5.1)
--- NOTE | 2016-08-16 08:29 | PDOC ---
PROGRESS NOTES Chief Complaint Chief Complaint 1. Duodenal GIB, acute : s/p dual scopes 07/11 and embolization on 07/12, this time got cautery and epi 08/10 2. Anemia: acute blood loss, upper, 3. Dehydration 4. GELA, vasomotor 5. Uremia: 2/2 UGIB. 6. Dementia: moderate 7. HTN: on nifedipine at home 8. SIRS, no sepsis 9. hypokalemia on protonix drip History of Present Illness History of Present Illness hgb more stable still in ICU, transfer out today vitals stable, discussed with GI team, continue to monitor hgb closely no abd pain, advance diet to fulls Vitals Vitals Vital Signs Date Time Temp Pulse Resp B/P (MAP) Pulse Ox O2 Delivery O2 Flow Rate FiO2 08/16/16 06:00 82 20 120/63 (82) Room Air 08/16/16 04:00 97.9 95 97.9 Physical Exam General: Alert, Oriented X3, Cooperative, No acute distress Heart: Regular rate, Normal S1, Normal S2, No murmurs Lungs: Clear Abdomen: Soft, No tenderness Extremities: No clubbing, No cyanosis Skin: No rashes, No breakdown Labs LABS Laboratory Tests Test 08/15/16 15:10 08/16/16 05:00 White Blood Count 11.6 x10^3/uL (4.0-11.0) 11.5 x10^3/uL (4.0-11.0) Red Blood Count 2.81 x10^6/uL (3.50-5.40) 2.75 x10^6/uL (3.50-5.40) Hemoglobin 8.3 g/dL (12.0-15.5) 8.0 g/dL (12.0-15.5) Hematocrit 24.0 % (36.0-47.0) 23.8 % (36.0-47.0) Mean Corpuscular Volume 85 fL (79-100) 87 fL (79-100) Mean Corpuscular Hemoglobin 30 pg (25-35) 29 pg (25-35) Mean Corpuscular Hemoglobin Concent 35 g/dL (31-37) 34 g/dL (31-37) Red Cell Distribution Width 17.4 % (11.5-14.5) 17.6 % (11.5-14.5) Platelet Count 169 x10^3/uL (140-400) 179 x10^3/uL (140-400) Neutrophils (%) (Auto) 79 % (31-73) Lymphocytes (%) (Auto) 10 % (24-48) Monocytes (%) (Auto) 10 % (0-9) Eosinophils (%) (Auto) 1 % (0-3) Basophils (%) (Auto) 0 % (0-3) Neutrophils # (Auto) 9.0 x10^3uL (1.8-7.7) Lymphocytes # (Auto) 1.2 x10^3/uL (1.0-4.8) Monocytes # (Auto) 1.1 x10^3/uL (0.0-1.1) Eosinophils # (Auto) 0.1 x10^3/uL (0.0-0.7) Basophils # (Auto) 0.0 x10^3/uL (0.0-0.2) Sodium Level 136 mmol/L (136-145) Potassium Level 3.3 mmol/L (3.5-5.1) Chloride Level 103 mmol/L (98-107) Carbon Dioxide Level 26 mmol/L (21-32) Anion Gap 7 (6-14) Blood Urea Nitrogen 22 mg/dL (7-20) Creatinine 0.7 mg/dL (0.6-1.0) Estimated GFR (Cockcroft-Gault) 80.1 Glucose Level 110 mg/dL (70-99) Calcium Level 8.1 mg/dL (8.5-10.1) Assessment and Plan Assessmemt and Plan Problems Medical Problems: (1) GIB (gastrointestinal bleeding) Status: Acute (2) Upper GI bleed Status: Acute Problems: Comment Review of Relevant I have reviewed the following items jose luis (where applicable) has been applied. Labs Laboratory Tests Test 08/15/16 04:15 08/15/16 15:10 08/16/16 05:00 White Blood Count 10.8 x10^3/uL (4.0-11.0) 11.6 x10^3/uL (4.0-11.0) 11.5 x10^3/uL (4.0-11.0) Red Blood Count 2.31 x10^6/uL (3.50-5.40) 2.81 x10^6/uL (3.50-5.40) 2.75 x10^6/uL (3.50-5.40) Hemoglobin 7.0 g/dL (12.0-15.5) 8.3 g/dL (12.0-15.5) 8.0 g/dL (12.0-15.5) Hematocrit 20.4 % (36.0-47.0) 24.0 % (36.0-47.0) 23.8 % (36.0-47.0) Mean Corpuscular Volume 88 fL (79-100) 85 fL (79-100) 87 fL (79-100) Mean Corpuscular Hemoglobin 30 pg (25-35) 30 pg (25-35) 29 pg (25-35) Mean Corpuscular Hemoglobin Concent 34 g/dL (31-37) 35 g/dL (31-37) 34 g/dL (31-37) Red Cell Distribution Width 17.3 % (11.5-14.5) 17.4 % (11.5-14.5) 17.6 % (11.5-14.5) Platelet Count 164 x10^3/uL (140-400) 169 x10^3/uL (140-400) 179 x10^3/uL (140-400) Neutrophils (%) (Auto) 79 % (31-73) 79 % (31-73) Lymphocytes (%) (Auto) 11 % (24-48) 10 % (24-48) Monocytes (%) (Auto) 8 % (0-9) 10 % (0-9) Eosinophils (%) (Auto) 1 % (0-3) 1 % (0-3) Basophils (%) (Auto) 0 % (0-3) 0 % (0-3) Neutrophils # (Auto) 8.5 x10^3uL (1.8-7.7) 9.0 x10^3uL (1.8-7.7) Lymphocytes # (Auto) 1.2 x10^3/uL (1.0-4.8) 1.2 x10^3/uL (1.0-4.8) Monocytes # (Auto) 0.9 x10^3/uL (0.0-1.1) 1.1 x10^3/uL (0.0-1.1) Eosinophils # (Auto) 0.1 x10^3/uL (0.0-0.7) 0.1 x10^3/uL (0.0-0.7) Basophils # (Auto) 0.0 x10^3/uL (0.0-0.2) 0.0 x10^3/uL (0.0-0.2) Sodium Level 142 mmol/L (136-145) 136 mmol/L (136-145) Potassium Level 3.7 mmol/L (3.5-5.1) 3.3 mmol/L (3.5-5.1) Chloride Level 109 mmol/L (98-107) 103 mmol/L (98-107) Carbon Dioxide Level 25 mmol/L (21-32) 26 mmol/L (21-32) Anion Gap 8 (6-14) 7 (6-14) Blood Urea Nitrogen 34 mg/dL (7-20) 22 mg/dL (7-20) Creatinine 0.8 mg/dL (0.6-1.0) 0.7 mg/dL (0.6-1.0) Estimated GFR (Cockcroft-Gault) 68.7 80.1 Glucose Level 96 mg/dL (70-99) 110 mg/dL (70-99) Calcium Level 8.1 mg/dL (8.5-10.1) 8.1 mg/dL (8.5-10.1) Laboratory Tests Test 08/15/16 15:10 08/16/16 05:00 White Blood Count 11.6 x10^3/uL (4.0-11.0) 11.5 x10^3/uL (4.0-11.0) Red Blood Count 2.81 x10^6/uL (3.50-5.40) 2.75 x10^6/uL (3.50-5.40) Hemoglobin 8.3 g/dL (12.0-15.5) 8.0 g/dL (12.0-15.5) Hematocrit 24.0 % (36.0-47.0) 23.8 % (36.0-47.0) Mean Corpuscular Volume 85 fL (79-100) 87 fL (79-100) Mean Corpuscular Hemoglobin 30 pg (25-35) 29 pg (25-35) Mean Corpuscular Hemoglobin Concent 35 g/dL (31-37) 34 g/dL (31-37) Red Cell Distribution Width 17.4 % (11.5-14.5) 17.6 % (11.5-14.5) Platelet Count 169 x10^3/uL (140-400) 179 x10^3/uL (140-400) Neutrophils (%) (Auto) 79 % (31-73) Lymphocytes (%) (Auto) 10 % (24-48) Monocytes (%) (Auto) 10 % (0-9) Eosinophils (%) (Auto) 1 % (0-3) Basophils (%) (Auto) 0 % (0-3) Neutrophils # (Auto) 9.0 x10^3uL (1.8-7.7) Lymphocytes # (Auto) 1.2 x10^3/uL (1.0-4.8) Monocytes # (Auto) 1.1 x10^3/uL (0.0-1.1) Eosinophils # (Auto) 0.1 x10^3/uL (0.0-0.7) Basophils # (Auto) 0.0 x10^3/uL (0.0-0.2) Sodium Level 136 mmol/L (136-145) Potassium Level 3.3 mmol/L (3.5-5.1) Chloride Level 103 mmol/L (98-107) Carbon Dioxide Level 26 mmol/L (21-32) Anion Gap 7 (6-14) Blood Urea Nitrogen 22 mg/dL (7-20) Creatinine 0.7 mg/dL (0.6-1.0) Estimated GFR (Cockcroft-Gault) 80.1 Glucose Level 110 mg/dL (70-99) Calcium Level 8.1 mg/dL (8.5-10.1) Medications Current Medications Pantoprazole Sodium (Protonix Vial) 40 mg 1X ONCE IVP Last administered on 10:22; Start 08/10/16 at 10:00; Stop 08/10/16 at 10:08; Status DC Ondansetron HCl (Zofran) 4 mg 1X ONCE IV Last administered on 08/10/16 10:22 ; Start 08/10/16 at 10:00; Stop 08/10/16 at 10:08; Status DC Fentanyl Citrate (Fentanyl 2ml Vial) 25 mcg 1X ONCE IV Last administered on 10:23; Start 08/10/16 at 10:00; Stop 08/10/16 at 10:08; Status DC Sodium Chloride 500 ml @ 500 mls/hr 1X ONCE IV Last administered on 10:22; Start 08/10/16 at 10:30; Stop 08/10/16 at 11:29; Status DC Ondansetron HCl (Zofran) 4 mg PRN Q8HRS PRN IV NAUSEA/VOMITING; Start 08/10/16 at 11:00; Stop 08/11/16 at 10:59; Status DC Fentanyl Citrate (Fentanyl 2ml Vial) 50 mcg PRN Q2HR PRN IV PAIN; Start at 11:00; Stop 08/11/16 at 10:59; Status DC Acetaminophen (Tylenol) 650 mg PRN Q4HRS PRN PO FEVER; Start 08/10/16 at 11:00 ; Stop 08/11/16 at 10:59; Status DC Potassium Chloride/Dextrose/ Sod Cl 1,000 ml @ 75 mls/hr 1X ONCE IV Last administered on 08/10/16 11:51; Start 08/10/16 at 11:00; Stop 08/11/16 at 00:19 ; Status DC Metoclopramide HCl (Reglan) 5 mg 1X STAT IV Last administered on 08/10/16 12: 22; Start 08/10/16 at 11:10; Stop 08/10/16 at 11:29; Status DC Erythromycin Lactobionate 250 mg/Sodium Chloride 100 ml @ 100 mls/hr ONCE STAT IV Last administered on 08/10/16 12:23; Start 08/10/16 at 11:11; Stop at 12:10; Status DC Midazolam HCl (Versed) 5 mg STK-MED ONCE .ROUTE ; Start 08/10/16 at 12:38; Stop 08/10/16 at 12:39; Status DC Midazolam HCl (Versed) 5 mg STK-MED ONCE IV Last administered on 08/10/16 12: 59; Start 08/10/16 at 12:59; Stop 08/10/16 at 13:03; Status DC Fentanyl Citrate (Fentanyl 2ml Vial) 100 mcg STK-MED ONCE IV Last administered on 08/10/16 13:00; Start 08/10/16 at 13:00; Stop 08/10/16 at 13:03; Status DC Midazolam HCl (Versed) 5 mg STK-MED ONCE IV Last administered on 08/10/16 13: 01; Start 08/10/16 at 13:01; Stop 08/10/16 at 13:03; Status DC Fentanyl Citrate (Fentanyl 2ml Vial) 100 mcg STK-MED ONCE IV Last administered on 08/10/16 13:02; Start 08/10/16 at 13:02; Stop 08/10/16 at 13:03; Status DC Midazolam HCl (Versed) 5 mg STK-MED ONCE IV Last administered on 08/10/16 13: 03; Start 08/10/16 at 13:03; Stop 08/10/16 at 13:04; Status DC Midazolam HCl (Versed) 5 mg STK-MED ONCE IV Last administered on 08/10/16 13: 15; Start 08/10/16 at 13:15; Stop 08/10/16 at 13:19; Status DC Fentanyl Citrate (Fentanyl 2ml Vial) 100 mcg STK-MED ONCE IV Last administered on 08/10/16 13:17; Start 08/10/16 at 13:17; Stop 08/10/16 at 13:19; Status DC Pantoprazole Sodium 80 mg/ Sodium Chloride 100 ml @ 10 mls/hr Q10H IV Last administered on 08/15/16 23:45; Start 08/10/16 at 13:45 Epinephrine HCl (Epinephrine Syringe) 1 mg STK-MED ONCE .ROUTE ; Start 08/10/16 at 13:42; Stop 08/10/16 at 13:43; Status DC Potassium Chloride (Klor-Con) 40 meq 1X ONCE PO Last administered on 08/13/16 09:42; Start 08/13/16 at 08:45; Stop 08/13/16 at 08:46; Status DC Docusate Sodium (Colace) 100 mg PRN DAILY PRN PO CONSTIPATION Last administered on 08/13/16 09:42; Start 08/13/16 at 08:45 Escitalopram Oxalate (Lexapro) 5 mg DAILY PO Last administered on 08/15/16 09: 13; Start 08/13/16 at 09:00 Acetaminophen (Tylenol) 650 mg PRN Q6HRS PRN PO FEVER; Start 08/13/16 at 12:45 Ondansetron HCl (Zofran) 4 mg PRN Q6HRS PRN IV NAUSEA/VOMITING; Start 08/13/16 at 12:45 Metoprolol Tartrate (Lopressor) 12.5 mg BID PO Last administered on 08/15/16 09 :14; Start 08/13/16 at 15:00 Midazolam HCl (Versed) 2 mg PRN 1X PRN IV PRIOR TO PROCEDURE; Start 08/14/16 at 15:00; Stop 08/14/16 at 20:00; Status DC Fentanyl Citrate (Fentanyl 2ml Vial) 25 mcg PRN Q5MIN PRN IV X 2 DOSES FOR PAIN ; Start 08/14/16 at 15:00; Stop 08/15/16 at 14:59; Status DC Fentanyl Citrate (Fentanyl 2ml Vial) 50 mcg PRN Q5MIN PRN IV X 2 DOSES FOR PAIN ; Start 08/14/16 at 15:00; Stop 08/14/16 at 20:00; Status DC Lidocaine HCl 2 ml 1X PRN PRN ID IV START; Start 08/14/16 at 15:00; Stop at 20:00; Status DC Propofol 20 ml @ As Directed STK-MED ONCE IV ; Start 08/14/16 at 17:32; Stop 08/14 at 17:33; Status DC Lidocaine HCl (Lidocaine Pf 2% Vial) 5 ml STK-MED ONCE .ROUTE ; Start 08/14/16 at 17:32; Stop 08/14/16 at 17:33; Status DC Active Scripts Active Docusate Sodium 100 Mg Capsule 100 Mg PO PRN DAILY PRN Pantoprazole Sodium 40 Mg Tablet.dr 40 Mg PO BIDAC Reported Nifedipine Er (Nifedipine) 30 Mg Tab.er.24 30 Mg PO DAILY Loratadine 10 Mg Tablet 10 Mg PO DAILY Lexapro (Escitalopram Oxalate) 5 Mg Tablet 5 Mg PO DAILY Vitals/I & O Vital Sign - Last 24 Hours 08/15/16 08/15/16 08/15/16 08/15/16 08:44 08:45 09:00 09:00 Temp 98.5 98.5 97.7 98.5 98.5 97.7 Pulse 81 81 76 84 Resp 18 18 16 16 B/P (MAP) 113/51 113/51 115/54 (74) 124/69 Pulse Ox 100 O2 Delivery Room Air 08/15/16 08/15/16 08/15/16 08/15/16 09:14 09:15 09:30 09:45 Temp 98.6 98.6 Pulse 84 81 84 85 Resp 18 18 18 B/P (MAP) 124/69 124/69 115/59 117/59 08/15/16 08/15/16 08/15/16 08/15/16 10:00 10:00 10:30 11:00 Temp 98.6 98.6 Pulse 77 77 76 75 Resp 18 18 17 18 B/P (MAP) 109/52 109/52 (71) 112/60 112/60 Pulse Ox 98 O2 Delivery Room Air 08/15/16 08/15/16 08/15/16 08/15/16 11:00 12:00 12:00 13:00 Temp 98.2 98.2 Pulse 76 73 74 Resp 18 18 22 B/P (MAP) 112/60 (77) 126/61 (82) 135/65 (88) Pulse Ox 97 98 97 O2 Delivery Room Air Room Air Room Air Room Air 08/15/16 08/15/16 08/15/16 08/15/16 14:00 15:00 16:00 16:00 Temp 98.5 98.5 Pulse 80 80 74 Resp 18 22 20 B/P (MAP) 125/58 (80) 123/58 (79) 118/53 (74) Pulse Ox 98 98 98 O2 Delivery Room Air Room Air Room Air Room Air 08/15/16 08/15/16 08/15/16 08/15/16 17:00 18:00 19:00 20:00 Temp 97.6 97.6 Pulse 82 86 90 89 Resp 20 16 22 16 B/P (MAP) 123/51 (75) 119/53 (75) 99/44 (62) 114/49 (70) Pulse Ox 98 97 98 97 O2 Delivery Room Air Room Air Room Air Room Air 08/15/16 08/15/16 08/15/16/5/17 20:58 21:00 22:00 23:00 Pulse 86 90 89 87 Resp B/P (MAP) 95/58 85/45 (58) 128/47 (74) 115/50 (71) O2 Delivery Room Air Room Air Room Air 08/16/16 08/16/16 08/16/16 08/16/16 00:00 01:00 02:00 03:00 Temp 98.9 98.9 Pulse 88 90 87 87 Resp 22 B/P (MAP) 121/61 (81) 111/44 (66) 112/62 (79) 120/60 (80) Pulse Ox 99 O2 Delivery Room Air Room Air Room Air Room Air 08/16/16 08/16/16 08/16/16 04:00 05:00 06:00 Temp 97.9 97.9 Pulse 87 85 82 Resp B/P (MAP) 127/60 (82) 119/55 (76) 120/63 (82) Pulse Ox 95 O2 Delivery Room Air Room Air Room Air Intake and Output 08/15/16 08/15/16 08/16/16 15:00 23:00 07:00 Intake Total 415 ml 400 ml 119 ml Balance 415 ml 400 ml 119 ml Nutrition Consultation Dietary Evaluation: Recommendations by RD: Increase Calorie Intake, Protein supplementation Comments: When able to advance diet, rec. supplement of choice TID to better meet nutr needs If unable to advance diet within 24-48 hours, would consider PPN to meet short-term nutrition needs Expected Outcomes/Goals: diet advancement Interpretation of weight loss: >7.5% in 3 months Malnutrition Findings: Food and Nutrition Intake (Mod: <75% est energy req 7days Body Fat Depletion (Non Severe: Mild Depletion Reduced Horse Trader Strength: N/A Reduced Horse Trader Strength (Non-Sev: N/A Malnutrition related to morbid: No Weight Status: Overweight Fluid Accumulation (N/A): N/A HAYDE PAREKH MD August 16, 2016 08:29
[2016-08-16] MEDS ORDERED: POTASSIUM CHLORIDE 20 MEQ TABLET.ER. PO ONE (08:30)
[2016-08-16] MEDS: ESCITALOPRAM 5 MG TABLET. PO SCH (08:53)
[2016-08-16] MEDS: METOPROLOL TART IMMED RELEASE 25 MG TABLET. PO SCH ×2 (08:53→20:54)
--- NOTE | 2016-08-16 09:12 | PDOC ---
SURGICAL PROGRESS NOTE Subjective Doing well, denies pain or nausea Vital Signs Vital Signs Date Time Temp Pulse Resp B/P (MAP) Pulse Ox O2 Delivery O2 Flow Rate FiO2 08/16/16 08:53 85 138/56 08/16/16 08:00 98.5 21 99 Room Air 98.5 I&O Intake and Output 08/16/16 07:00 Intake Total 934 ml Balance 934 ml Intake Oral 400 ml IV Total 219 ml Blood Product 285 ml Blood Product IV Normal Saline Flush 30 ml # Voids 7 PATIENT HAS A LITTLEJOHN: No General: Alert, Oriented X3, Cooperative, mild distress Abdomen: Normal bowel sounds, Soft, No tenderness Labs Laboratory Tests Test 08/15/16 04:15 08/15/16 15:10 08/16/16 05:00 White Blood Count 10.8 x10^3/uL (4.0-11.0) 11.6 x10^3/uL (4.0-11.0) 11.5 x10^3/uL (4.0-11.0) Red Blood Count 2.31 x10^6/uL (3.50-5.40) 2.81 x10^6/uL (3.50-5.40) 2.75 x10^6/uL (3.50-5.40) Hemoglobin 7.0 g/dL (12.0-15.5) 8.3 g/dL (12.0-15.5) 8.0 g/dL (12.0-15.5) Hematocrit 20.4 % (36.0-47.0) 24.0 % (36.0-47.0) 23.8 % (36.0-47.0) Mean Corpuscular Volume 88 fL (79-100) 85 fL (79-100) 87 fL (79-100) Mean Corpuscular Hemoglobin 30 pg (25-35) 30 pg (25-35) 29 pg (25-35) Mean Corpuscular Hemoglobin Concent 34 g/dL (31-37) 35 g/dL (31-37) 34 g/dL (31-37) Red Cell Distribution Width 17.3 % (11.5-14.5) 17.4 % (11.5-14.5) 17.6 % (11.5-14.5) Platelet Count 164 x10^3/uL (140-400) 169 x10^3/uL (140-400) 179 x10^3/uL (140-400) Neutrophils (%) (Auto) 79 % (31-73) 79 % (31-73) Lymphocytes (%) (Auto) 11 % (24-48) 10 % (24-48) Monocytes (%) (Auto) 8 % (0-9) 10 % (0-9) Eosinophils (%) (Auto) 1 % (0-3) 1 % (0-3) Basophils (%) (Auto) 0 % (0-3) 0 % (0-3) Neutrophils # (Auto) 8.5 x10^3uL (1.8-7.7) 9.0 x10^3uL (1.8-7.7) Lymphocytes # (Auto) 1.2 x10^3/uL (1.0-4.8) 1.2 x10^3/uL (1.0-4.8) Monocytes # (Auto) 0.9 x10^3/uL (0.0-1.1) 1.1 x10^3/uL (0.0-1.1) Eosinophils # (Auto) 0.1 x10^3/uL (0.0-0.7) 0.1 x10^3/uL (0.0-0.7) Basophils # (Auto) 0.0 x10^3/uL (0.0-0.2) 0.0 x10^3/uL (0.0-0.2) Sodium Level 142 mmol/L (136-145) 136 mmol/L (136-145) Potassium Level 3.7 mmol/L (3.5-5.1) 3.3 mmol/L (3.5-5.1) Chloride Level 109 mmol/L (98-107) 103 mmol/L (98-107) Carbon Dioxide Level 25 mmol/L (21-32) 26 mmol/L (21-32) Anion Gap 8 (6-14) 7 (6-14) Blood Urea Nitrogen 34 mg/dL (7-20) 22 mg/dL (7-20) Creatinine 0.8 mg/dL (0.6-1.0) 0.7 mg/dL (0.6-1.0) Estimated GFR (Cockcroft-Gault) 68.7 80.1 Glucose Level 96 mg/dL (70-99) 110 mg/dL (70-99) Calcium Level 8.1 mg/dL (8.5-10.1) 8.1 mg/dL (8.5-10.1) Laboratory Tests Test 08/15/16 15:10 08/16/16 05:00 White Blood Count 11.6 x10^3/uL (4.0-11.0) 11.5 x10^3/uL (4.0-11.0) Red Blood Count 2.81 x10^6/uL (3.50-5.40) 2.75 x10^6/uL (3.50-5.40) Hemoglobin 8.3 g/dL (12.0-15.5) 8.0 g/dL (12.0-15.5) Hematocrit 24.0 % (36.0-47.0) 23.8 % (36.0-47.0) Mean Corpuscular Volume 85 fL (79-100) 87 fL (79-100) Mean Corpuscular Hemoglobin 30 pg (25-35) 29 pg (25-35) Mean Corpuscular Hemoglobin Concent 35 g/dL (31-37) 34 g/dL (31-37) Red Cell Distribution Width 17.4 % (11.5-14.5) 17.6 % (11.5-14.5) Platelet Count 169 x10^3/uL (140-400) 179 x10^3/uL (140-400) Neutrophils (%) (Auto) 79 % (31-73) Lymphocytes (%) (Auto) 10 % (24-48) Monocytes (%) (Auto) 10 % (0-9) Eosinophils (%) (Auto) 1 % (0-3) Basophils (%) (Auto) 0 % (0-3) Neutrophils # (Auto) 9.0 x10^3uL (1.8-7.7) Lymphocytes # (Auto) 1.2 x10^3/uL (1.0-4.8) Monocytes # (Auto) 1.1 x10^3/uL (0.0-1.1) Eosinophils # (Auto) 0.1 x10^3/uL (0.0-0.7) Basophils # (Auto) 0.0 x10^3/uL (0.0-0.2) Sodium Level 136 mmol/L (136-145) Potassium Level 3.3 mmol/L (3.5-5.1) Chloride Level 103 mmol/L (98-107) Carbon Dioxide Level 26 mmol/L (21-32) Anion Gap 7 (6-14) Blood Urea Nitrogen 22 mg/dL (7-20) Creatinine 0.7 mg/dL (0.6-1.0) Estimated GFR (Cockcroft-Gault) 80.1 Glucose Level 110 mg/dL (70-99) Calcium Level 8.1 mg/dL (8.5-10.1) Problem List Problems Medical Problems: (1) GIB (gastrointestinal bleeding) Status: Acute (2) Upper GI bleed Status: Acute Assessment/Plan GI bleed Hgb stable Clinically stable No surgical needs at this time. Problems: ANGELLA WOODS MD August 16, 2016 09:11
[2016-08-16] MEDS: PANTOPRAZOLE SODIUM IV 80 MG in IV NORMAL SALINE 100ML 100 ML IV SCH ×2 (09:14→20:53)
--- NOTE | 2016-08-16 10:57 | PDOC ---
G I PROGRESS NOTE Reason for Follow-up GI bleed Subjective No further bleeding/transferring to floor Physical Exam Lungs clear CV S1 S2 ABD +BS< soft, nontender Review of Relevant I have reviewed the following items jose luis (where applicable) has been applied. Labs Laboratory Tests Test 08/15/16 04:15 08/15/16 15:10 08/16/16 05:00 White Blood Count 10.8 x10^3/uL (4.0-11.0) 11.6 x10^3/uL (4.0-11.0) 11.5 x10^3/uL (4.0-11.0) Red Blood Count 2.31 x10^6/uL (3.50-5.40) 2.81 x10^6/uL (3.50-5.40) 2.75 x10^6/uL (3.50-5.40) Hemoglobin 7.0 g/dL (12.0-15.5) 8.3 g/dL (12.0-15.5) 8.0 g/dL (12.0-15.5) Hematocrit 20.4 % (36.0-47.0) 24.0 % (36.0-47.0) 23.8 % (36.0-47.0) Mean Corpuscular Volume 88 fL (79-100) 85 fL (79-100) 87 fL (79-100) Mean Corpuscular Hemoglobin 30 pg (25-35) 30 pg (25-35) 29 pg (25-35) Mean Corpuscular Hemoglobin Concent 34 g/dL (31-37) 35 g/dL (31-37) 34 g/dL (31-37) Red Cell Distribution Width 17.3 % (11.5-14.5) 17.4 % (11.5-14.5) 17.6 % (11.5-14.5) Platelet Count 164 x10^3/uL (140-400) 169 x10^3/uL (140-400) 179 x10^3/uL (140-400) Neutrophils (%) (Auto) 79 % (31-73) 79 % (31-73) Lymphocytes (%) (Auto) 11 % (24-48) 10 % (24-48) Monocytes (%) (Auto) 8 % (0-9) 10 % (0-9) Eosinophils (%) (Auto) 1 % (0-3) 1 % (0-3) Basophils (%) (Auto) 0 % (0-3) 0 % (0-3) Neutrophils # (Auto) 8.5 x10^3uL (1.8-7.7) 9.0 x10^3uL (1.8-7.7) Lymphocytes # (Auto) 1.2 x10^3/uL (1.0-4.8) 1.2 x10^3/uL (1.0-4.8) Monocytes # (Auto) 0.9 x10^3/uL (0.0-1.1) 1.1 x10^3/uL (0.0-1.1) Eosinophils # (Auto) 0.1 x10^3/uL (0.0-0.7) 0.1 x10^3/uL (0.0-0.7) Basophils # (Auto) 0.0 x10^3/uL (0.0-0.2) 0.0 x10^3/uL (0.0-0.2) Sodium Level 142 mmol/L (136-145) 136 mmol/L (136-145) Potassium Level 3.7 mmol/L (3.5-5.1) 3.3 mmol/L (3.5-5.1) Chloride Level 109 mmol/L (98-107) 103 mmol/L (98-107) Carbon Dioxide Level 25 mmol/L (21-32) 26 mmol/L (21-32) Anion Gap 8 (6-14) 7 (6-14) Blood Urea Nitrogen 34 mg/dL (7-20) 22 mg/dL (7-20) Creatinine 0.8 mg/dL (0.6-1.0) 0.7 mg/dL (0.6-1.0) Estimated GFR (Cockcroft-Gault) 68.7 80.1 Glucose Level 96 mg/dL (70-99) 110 mg/dL (70-99) Calcium Level 8.1 mg/dL (8.5-10.1) 8.1 mg/dL (8.5-10.1) Laboratory Tests Test 08/15/16 15:10 08/16/16 05:00 White Blood Count 11.6 x10^3/uL (4.0-11.0) 11.5 x10^3/uL (4.0-11.0) Red Blood Count 2.81 x10^6/uL (3.50-5.40) 2.75 x10^6/uL (3.50-5.40) Hemoglobin 8.3 g/dL (12.0-15.5) 8.0 g/dL (12.0-15.5) Hematocrit 24.0 % (36.0-47.0) 23.8 % (36.0-47.0) Mean Corpuscular Volume 85 fL (79-100) 87 fL (79-100) Mean Corpuscular Hemoglobin 30 pg (25-35) 29 pg (25-35) Mean Corpuscular Hemoglobin Concent 35 g/dL (31-37) 34 g/dL (31-37) Red Cell Distribution Width 17.4 % (11.5-14.5) 17.6 % (11.5-14.5) Platelet Count 169 x10^3/uL (140-400) 179 x10^3/uL (140-400) Neutrophils (%) (Auto) 79 % (31-73) Lymphocytes (%) (Auto) 10 % (24-48) Monocytes (%) (Auto) 10 % (0-9) Eosinophils (%) (Auto) 1 % (0-3) Basophils (%) (Auto) 0 % (0-3) Neutrophils # (Auto) 9.0 x10^3uL (1.8-7.7) Lymphocytes # (Auto) 1.2 x10^3/uL (1.0-4.8) Monocytes # (Auto) 1.1 x10^3/uL (0.0-1.1) Eosinophils # (Auto) 0.1 x10^3/uL (0.0-0.7) Basophils # (Auto) 0.0 x10^3/uL (0.0-0.2) Sodium Level 136 mmol/L (136-145) Potassium Level 3.3 mmol/L (3.5-5.1) Chloride Level 103 mmol/L (98-107) Carbon Dioxide Level 26 mmol/L (21-32) Anion Gap 7 (6-14) Blood Urea Nitrogen 22 mg/dL (7-20) Creatinine 0.7 mg/dL (0.6-1.0) Estimated GFR (Cockcroft-Gault) 80.1 Glucose Level 110 mg/dL (70-99) Calcium Level 8.1 mg/dL (8.5-10.1) Medications Current Medications Pantoprazole Sodium (Protonix Vial) 40 mg 1X ONCE IVP Last administered on 10:22; Start 08/10/16 at 10:00; Stop 08/10/16 at 10:08; Status DC Ondansetron HCl (Zofran) 4 mg 1X ONCE IV Last administered on 08/10/16 10:22 ; Start 08/10/16 at 10:00; Stop 08/10/16 at 10:08; Status DC Fentanyl Citrate (Fentanyl 2ml Vial) 25 mcg 1X ONCE IV Last administered on 10:23; Start 08/10/16 at 10:00; Stop 08/10/16 at 10:08; Status DC Sodium Chloride 500 ml @ 500 mls/hr 1X ONCE IV Last administered on 10:22; Start 08/10/16 at 10:30; Stop 08/10/16 at 11:29; Status DC Ondansetron HCl (Zofran) 4 mg PRN Q8HRS PRN IV NAUSEA/VOMITING; Start 08/10/16 at 11:00; Stop 08/11/16 at 10:59; Status DC Fentanyl Citrate (Fentanyl 2ml Vial) 50 mcg PRN Q2HR PRN IV PAIN; Start at 11:00; Stop 08/11/16 at 10:59; Status DC Acetaminophen (Tylenol) 650 mg PRN Q4HRS PRN PO FEVER; Start 08/10/16 at 11:00 ; Stop 08/11/16 at 10:59; Status DC Potassium Chloride/Dextrose/ Sod Cl 1,000 ml @ 75 mls/hr 1X ONCE IV Last administered on 08/10/16 11:51; Start 08/10/16 at 11:00; Stop 08/11/16 at 00:19 ; Status DC Metoclopramide HCl (Reglan) 5 mg 1X STAT IV Last administered on 08/10/16 12: 22; Start 08/10/16 at 11:10; Stop 08/10/16 at 11:29; Status DC Erythromycin Lactobionate 250 mg/Sodium Chloride 100 ml @ 100 mls/hr ONCE STAT IV Last administered on 08/10/16 12:23; Start 08/10/16 at 11:11; Stop at 12:10; Status DC Midazolam HCl (Versed) 5 mg STK-MED ONCE .ROUTE ; Start 08/10/16 at 12:38; Stop 08/10/16 at 12:39; Status DC Midazolam HCl (Versed) 5 mg STK-MED ONCE IV Last administered on 08/10/16 12: 59; Start 08/10/16 at 12:59; Stop 08/10/16 at 13:03; Status DC Fentanyl Citrate (Fentanyl 2ml Vial) 100 mcg STK-MED ONCE IV Last administered on 08/10/16 13:00; Start 08/10/16 at 13:00; Stop 08/10/16 at 13:03; Status DC Midazolam HCl (Versed) 5 mg STK-MED ONCE IV Last administered on 08/10/16 13: 01; Start 08/10/16 at 13:01; Stop 08/10/16 at 13:03; Status DC Fentanyl Citrate (Fentanyl 2ml Vial) 100 mcg STK-MED ONCE IV Last administered on 08/10/16 13:02; Start 08/10/16 at 13:02; Stop 08/10/16 at 13:03; Status DC Midazolam HCl (Versed) 5 mg STK-MED ONCE IV Last administered on 08/10/16 13: 03; Start 08/10/16 at 13:03; Stop 08/10/16 at 13:04; Status DC Midazolam HCl (Versed) 5 mg STK-MED ONCE IV Last administered on 08/10/16 13: 15; Start 08/10/16 at 13:15; Stop 08/10/16 at 13:19; Status DC Fentanyl Citrate (Fentanyl 2ml Vial) 100 mcg STK-MED ONCE IV Last administered on 08/10/16 13:17; Start 08/10/16 at 13:17; Stop 08/10/16 at 13:19; Status DC Pantoprazole Sodium 80 mg/ Sodium Chloride 100 ml @ 10 mls/hr Q10H IV Last administered on 08/16/16 09:14; Start 08/10/16 at 13:45 Epinephrine HCl (Epinephrine Syringe) 1 mg STK-MED ONCE .ROUTE ; Start 08/10/16 at 13:42; Stop 08/10/16 at 13:43; Status DC Potassium Chloride (Klor-Con) 40 meq 1X ONCE PO Last administered on 08/13/16 09:42; Start 08/13/16 at 08:45; Stop 08/13/16 at 08:46; Status DC Docusate Sodium (Colace) 100 mg PRN DAILY PRN PO CONSTIPATION Last administered on 08/13/16 09:42; Start 08/13/16 at 08:45 Escitalopram Oxalate (Lexapro) 5 mg DAILY PO Last administered on 08/16/16 08: 53; Start 08/13/16 at 09:00 Acetaminophen (Tylenol) 650 mg PRN Q6HRS PRN PO FEVER; Start 08/13/16 at 12:45 Ondansetron HCl (Zofran) 4 mg PRN Q6HRS PRN IV NAUSEA/VOMITING; Start 08/13/16 at 12:45 Metoprolol Tartrate (Lopressor) 12.5 mg BID PO Last administered on 08/16/16 08 :53; Start 08/13/16 at 15:00 Midazolam HCl (Versed) 2 mg PRN 1X PRN IV PRIOR TO PROCEDURE; Start 08/14/16 at 15:00; Stop 08/14/16 at 20:00; Status DC Fentanyl Citrate (Fentanyl 2ml Vial) 25 mcg PRN Q5MIN PRN IV X 2 DOSES FOR PAIN ; Start 08/14/16 at 15:00; Stop 08/15/16 at 14:59; Status DC Fentanyl Citrate (Fentanyl 2ml Vial) 50 mcg PRN Q5MIN PRN IV X 2 DOSES FOR PAIN ; Start 08/14/16 at 15:00; Stop 08/14/16 at 20:00; Status DC Lidocaine HCl 2 ml 1X PRN PRN ID IV START; Start 08/14/16 at 15:00; Stop at 20:00; Status DC Propofol 20 ml @ As Directed STK-MED ONCE IV ; Start 08/14/16 at 17:32; Stop 08/14 at 17:33; Status DC Lidocaine HCl (Lidocaine Pf 2% Vial) 5 ml STK-MED ONCE .ROUTE ; Start 08/14/16 at 17:32; Stop 08/14/16 at 17:33; Status DC Potassium Chloride (Klor-Con) 40 meq 1X ONCE PO Last administered on 08/16/16t 08:53; Start 08/16/16 at 08:30; Stop 08/16/16 at 08:31; Status DC Active Scripts Active Docusate Sodium 100 Mg Capsule 100 Mg PO PRN DAILY PRN Pantoprazole Sodium 40 Mg Tablet.dr 40 Mg PO BIDAC Reported Nifedipine Er (Nifedipine) 30 Mg Tab.er.24 30 Mg PO DAILY Loratadine 10 Mg Tablet 10 Mg PO DAILY Lexapro (Escitalopram Oxalate) 5 Mg Tablet 5 Mg PO DAILY Vitals/I & O Vital Sign - Last 24 Hours 08/15/16 08/15/16 08/15/16 08/15/16 11:00 11:00 12:00 12:00 Temp 98.2 98.2 Pulse 75 76 73 Resp 18 18 18 B/P (MAP) 112/60 112/60 (77) 126/61 (82) Pulse Ox 97 98 O2 Delivery Room Air Room Air Room Air 08/15/16 08/15/16 08/15/16 08/15/16 13:00 14:00 15:00 16:00 Pulse 74 80 80 Resp 22 18 22 B/P (MAP) 135/65 (88) 125/58 (80) 123/58 (79) Pulse Ox 97 98 98 O2 Delivery Room Air Room Air Room Air Room Air 08/15/16 08/15/16 08/15/16 08/15/16 16:00 17:00 18:00 19:00 Temp 98.5 98.5 Pulse 74 82 86 90 Resp 20 20 16 22 B/P (MAP) 118/53 (74) 123/51 (75) 119/53 (75) 99/44 (62) Pulse Ox 98 98 97 98 O2 Delivery Room Air Room Air Room Air Room Air 08/15/16 08/15/16 08/15/16 08/15/16 20:00 20:58 21:00 22:00 Temp 97.6 97.6 Pulse 89 86 90 89 Resp 16 21 21 B/P (MAP) 114/49 (70) 95/58 85/45 (58) 128/47 (74) Pulse Ox 97 O2 Delivery Room Air Room Air Room Air 08/15/16 08/16/16 08/16/16 08/16/16 23:00 00:00 01:00 02:00 Temp 98.9 98.9 Pulse 87 88 90 87 Resp 22 20 21 22 B/P (MAP) 115/50 (71) 121/61 (81) 111/44 (66) 112/62 (79) Pulse Ox 99 O2 Delivery Room Air Room Air Room Air Room Air 08/16/16 08/16/16 08/16/16 08/16/16 03:00 04:00 05:00 06:00 Temp 97.9 97.9 Pulse 87 87 85 82 Resp 22 20 21 20 B/P (MAP) 120/60 (80) 127/60 (82) 119/55 (76) 120/63 (82) Pulse Ox 95 O2 Delivery Room Air Room Air Room Air Room Air 08/16/16 08/16/16 08/16/16 08/16/16 07:00 08:00 08:00 08:53 Temp 98.5 98.5 Pulse 82 80 85 Resp 12 21 B/P (MAP) 105/54 (71) 115/55 (75) 138/56 Pulse Ox 98 99 O2 Delivery Room Air Room Air Room Air Intake and Output 08/15/16 08/15/16 08/16/16 15:00 23:00 07:00 Intake Total 415 ml 400 ml 119 ml Balance 415 ml 400 ml 119 ml Problem List Problems Medical Problems: (1) GIB (gastrointestinal bleeding) Status: Acute (2) Upper GI bleed Status: Acute Assessment UGI bleed-= with NSAID use prior and duodenal stricture, presently stable, monitor Hg, advance diet as tolerated NATALIA SALDAÑA MD August 16, 2016 10:57
[2016-08-16 15:25] LABS: BILIRUBIN,URINE NEGATIVE (NEG); GLUCOSE,URINE NEGATIVE (NEG); NITRITE,URINE NEGATIVE (NEG); PROTEIN,URINE NEGATIVE (NEG-TRACE)
[2016-08-16 15:33] LABS: BACTERIA,URINE MODERATE /HPF (0-FEW); SQUAMOUS EPITHELIAL CELL,UR FEW /LPF
[2016-08-17 03:13] VITALS: BP 126/57
[2016-08-17 05:26] LABS: HEMATOCRIT 23.8 % (36.0-47.0); HEMOGLOBIN 8.1 g/dL (12.0-15.5); MEAN CORPUSCULAR HEMOGLOBIN 30 pg (25-35); MEAN CORPUSCULAR HGB CONC 34 g/dL (31-37); MEAN CORPUSCULAR VOLUME 87 fL (79-100); RED BLOOD COUNT 2.73 x10^6/uL (3.50-5.40); RED CELL DISTRIBUTION WIDTH 18.3 % (11.5-14.5); WHITE BLOOD COUNT 10.4 x10^3/uL (4.0-11.0)
[2016-08-17 05:27] LABS: BASO % 0 % (0-3); EOS % 1 % (0-3); LYMPH # 1.4 x10^3/uL (1.0-4.8); LYMPH % 13 % (24-48); MONO % 12 % (0-9); NEUT % 73 % (31-73); PLATELET COUNT 211 x10^3/uL (140-400)
[2016-08-17 05:44] LABS: CALCIUM 8.3 mg/dL (8.5-10.1); CREATININE 0.8 mg/dL (0.6-1.0); GFR 68.7; POTASSIUM 3.5 mmol/L (3.5-5.1)
[2016-08-17] MEDS: PANTOPRAZOLE SODIUM IV 80 MG in IV NORMAL SALINE 100ML 100 ML IV SCH ×2 (05:49→16:51)
[2016-08-17 07:00] VITALS: BP 151/65
[2016-08-17] MEDS: ESCITALOPRAM 5 MG TABLET. PO SCH (08:39)
[2016-08-17] MEDS: METOPROLOL TART IMMED RELEASE 25 MG TABLET. PO SCH ×2 (08:40→20:40)
--- NOTE | 2016-08-17 09:14 | PDOC ---
DALLAS MORRIS [employer] 08/17/16 0913: SURGICAL PROGRESS NOTE Subjective no complaints no further bleeding Vital Signs Vital Signs Date Time Temp Pulse Resp B/P (MAP) Pulse Ox O2 Delivery O2 Flow Rate FiO2 08/17/16 08:40 82 151/65 08/17/16 08:33 Room Air 08/17/16 07:00 98.7 19 96 98.7 I&O Intake and Output 08/17/16 07:00 Intake Total 460 ml Balance 460 ml Intake Oral 340 ml IV Total 120 ml # Voids 3 # Bowel Movements 1 General: Alert, Oriented X3, Cooperative, No acute distress Abdomen: Soft, Other (mild epigastric TTP) Labs Laboratory Tests Test 08/15/16 15:10 08/16/16 05:00 08/16/16 13:20 08/17/16 04:00 White Blood Count 11.6 x10^3/uL (4.0-11.0) 11.5 x10^3/uL (4.0-11.0) 10.4 x10^3/uL (4.0-11.0) Red Blood Count 2.81 x10^6/uL (3.50-5.40) 2.75 x10^6/uL (3.50-5.40) 2.73 x10^6/uL (3.50-5.40) Hemoglobin 8.3 g/dL (12.0-15.5) 8.0 g/dL (12.0-15.5) 8.1 g/dL (12.0-15.5) Hematocrit 24.0 % (36.0-47.0) 23.8 % (36.0-47.0) 23.8 % (36.0-47.0) Mean Corpuscular Volume 85 fL (79-100) 87 fL (79-100) 87 fL (79-100) Mean Corpuscular Hemoglobin 30 pg (25-35) 29 pg (25-35) 30 pg (25-35) Mean Corpuscular Hemoglobin Concent 35 g/dL (31-37) 34 g/dL (31-37) 34 g/dL (31-37) Red Cell Distribution Width 17.4 % (11.5-14.5) 17.6 % (11.5-14.5) 18.3 % (11.5-14.5) Platelet Count 169 x10^3/uL (140-400) 179 x10^3/uL (140-400) 211 x10^3/uL (140-400) Neutrophils (%) (Auto) 79 % (31-73) 73 % (31-73) Lymphocytes (%) (Auto) 10 % (24-48) 13 % (24-48) Monocytes (%) (Auto) 10 % (0-9) 12 % (0-9) Eosinophils (%) (Auto) 1 % (0-3) 1 % (0-3) Basophils (%) (Auto) 0 % (0-3) 0 % (0-3) Neutrophils # (Auto) 9.0 x10^3uL (1.8-7.7) 7.6 x10^3uL (1.8-7.7) Lymphocytes # (Auto) 1.2 x10^3/uL (1.0-4.8) 1.4 x10^3/uL (1.0-4.8) Monocytes # (Auto) 1.1 x10^3/uL (0.0-1.1) 1.3 x10^3/uL (0.0-1.1) Eosinophils # (Auto) 0.1 x10^3/uL (0.0-0.7) 0.1 x10^3/uL (0.0-0.7) Basophils # (Auto) 0.0 x10^3/uL (0.0-0.2) 0.0 x10^3/uL (0.0-0.2) Sodium Level 136 mmol/L (136-145) 136 mmol/L (136-145) Potassium Level 3.3 mmol/L (3.5-5.1) 3.5 mmol/L (3.5-5.1) Chloride Level 103 mmol/L (98-107) 104 mmol/L (98-107) Carbon Dioxide Level 26 mmol/L (21-32) 25 mmol/L (21-32) Anion Gap 7 (6-14) 7 (6-14) Blood Urea Nitrogen 22 mg/dL (7-20) 15 mg/dL (7-20) Creatinine 0.7 mg/dL (0.6-1.0) 0.8 mg/dL (0.6-1.0) Estimated GFR (Cockcroft-Gault) 80.1 68.7 Glucose Level 110 mg/dL (70-99) 104 mg/dL (70-99) Calcium Level 8.1 mg/dL (8.5-10.1) 8.3 mg/dL (8.5-10.1) Urine Collection Type Unknown Urine Color Dk yellow Urine Clarity Clear Urine pH 6.0 Urine Specific [place] 1.015 Urine Protein Negative mg/dL (NEG-TRACE) Urine Glucose (UA) Negative mg/dL (NEG) Urine Ketones (Stick) Negative mg/dL (NEG) Urine Blood Large (NEG) Urine Nitrite Negative (NEG) Urine Bilirubin Negative (NEG) Urine Urobilinogen Dipstick 4.0 mg/dL (0.2 mg/dL) Urine Leukocyte Esterase Small (NEG) Urine RBC 1-2 /HPF (0-2) Urine WBC 5-10 /HPF (0-4) Urine Squamous Epithelial Cells Few /LPF Urine Bacteria Moderate /HPF (0-FEW) Urine Hyaline Casts Occasional /HPF Urine Mucus Mod /LPF Laboratory Tests Test 08/16/16 13:20 08/17/16 04:00 Urine Collection Type Unknown Urine Color Dk yellow Urine Clarity Clear Urine pH 6.0 Urine Specific [place] 1.015 Urine Protein Negative mg/dL (NEG-TRACE) Urine Glucose (UA) Negative mg/dL (NEG) Urine Ketones (Stick) Negative mg/dL (NEG) Urine Blood Large (NEG) Urine Nitrite Negative (NEG) Urine Bilirubin Negative (NEG) Urine Urobilinogen Dipstick 4.0 mg/dL (0.2 mg/dL) Urine Leukocyte Esterase Small (NEG) Urine RBC 1-2 /HPF (0-2) Urine WBC 5-10 /HPF (0-4) Urine Squamous Epithelial Cells Few /LPF Urine Bacteria Moderate /HPF (0-FEW) Urine Hyaline Casts Occasional /HPF Urine Mucus Mod /LPF White Blood Count 10.4 x10^3/uL (4.0-11.0) Red Blood Count 2.73 x10^6/uL (3.50-5.40) Hemoglobin 8.1 g/dL (12.0-15.5) Hematocrit 23.8 % (36.0-47.0) Mean Corpuscular Volume 87 fL (79-100) Mean Corpuscular Hemoglobin 30 pg (25-35) Mean Corpuscular Hemoglobin Concent 34 g/dL (31-37) Red Cell Distribution Width 18.3 % (11.5-14.5) Platelet Count 211 x10^3/uL (140-400) Neutrophils (%) (Auto) 73 % (31-73) Lymphocytes (%) (Auto) 13 % (24-48) Monocytes (%) (Auto) 12 % (0-9) Eosinophils (%) (Auto) 1 % (0-3) Basophils (%) (Auto) 0 % (0-3) Neutrophils # (Auto) 7.6 x10^3uL (1.8-7.7) Lymphocytes # (Auto) 1.4 x10^3/uL (1.0-4.8) Monocytes # (Auto) 1.3 x10^3/uL (0.0-1.1) Eosinophils # (Auto) 0.1 x10^3/uL (0.0-0.7) Basophils # (Auto) 0.0 x10^3/uL (0.0-0.2) Sodium Level 136 mmol/L (136-145) Potassium Level 3.5 mmol/L (3.5-5.1) Chloride Level 104 mmol/L (98-107) Carbon Dioxide Level 25 mmol/L (21-32) Anion Gap 7 (6-14) Blood Urea Nitrogen 15 mg/dL (7-20) Creatinine 0.8 mg/dL (0.6-1.0) Estimated GFR (Cockcroft-Gault) 68.7 Glucose Level 104 mg/dL (70-99) Calcium Level 8.3 mg/dL (8.5-10.1) Problem List Problems Medical Problems: (1) GIB (gastrointestinal bleeding) Status: Acute (2) Upper GI bleed Status: Acute Assessment/Plan hgb stable for 3 days no surgical needs at this point will sign off, please call with questions Problems: ANGELLA WOODS MD 08/17/16 1201: SURGICAL PROGRESS NOTE Assessment/Plan Agree with Tamera's assessment and plan. Problems: DALLAS MORRIS APRN August 17, 2016 09:13 ANGELLA WOODS MD August 17, 2016 12:01
[2016-08-17 11:00] VITALS: BP 120/43
--- NOTE | 2016-08-17 12:26 | PDOC ---
G I PROGRESS NOTE Reason for Follow-up Acute blood loss anemia Subjective Tolerating liquids Physical Exam Lungs clear CV S1 S2 ABD +BS, soft, nontender Review of Relevant I have reviewed the following items jose luis (where applicable) has been applied. Labs Laboratory Tests Test 08/15/16 15:10 08/16/16 05:00 08/16/16 13:20 08/17/16 04:00 White Blood Count 11.6 x10^3/uL (4.0-11.0) 11.5 x10^3/uL (4.0-11.0) 10.4 x10^3/uL (4.0-11.0) Red Blood Count 2.81 x10^6/uL (3.50-5.40) 2.75 x10^6/uL (3.50-5.40) 2.73 x10^6/uL (3.50-5.40) Hemoglobin 8.3 g/dL (12.0-15.5) 8.0 g/dL (12.0-15.5) 8.1 g/dL (12.0-15.5) Hematocrit 24.0 % (36.0-47.0) 23.8 % (36.0-47.0) 23.8 % (36.0-47.0) Mean Corpuscular Volume 85 fL (79-100) 87 fL (79-100) 87 fL (79-100) Mean Corpuscular Hemoglobin 30 pg (25-35) 29 pg (25-35) 30 pg (25-35) Mean Corpuscular Hemoglobin Concent 35 g/dL (31-37) 34 g/dL (31-37) 34 g/dL (31-37) Red Cell Distribution Width 17.4 % (11.5-14.5) 17.6 % (11.5-14.5) 18.3 % (11.5-14.5) Platelet Count 169 x10^3/uL (140-400) 179 x10^3/uL (140-400) 211 x10^3/uL (140-400) Neutrophils (%) (Auto) 79 % (31-73) 73 % (31-73) Lymphocytes (%) (Auto) 10 % (24-48) 13 % (24-48) Monocytes (%) (Auto) 10 % (0-9) 12 % (0-9) Eosinophils (%) (Auto) 1 % (0-3) 1 % (0-3) Basophils (%) (Auto) 0 % (0-3) 0 % (0-3) Neutrophils # (Auto) 9.0 x10^3uL (1.8-7.7) 7.6 x10^3uL (1.8-7.7) Lymphocytes # (Auto) 1.2 x10^3/uL (1.0-4.8) 1.4 x10^3/uL (1.0-4.8) Monocytes # (Auto) 1.1 x10^3/uL (0.0-1.1) 1.3 x10^3/uL (0.0-1.1) Eosinophils # (Auto) 0.1 x10^3/uL (0.0-0.7) 0.1 x10^3/uL (0.0-0.7) Basophils # (Auto) 0.0 x10^3/uL (0.0-0.2) 0.0 x10^3/uL (0.0-0.2) Sodium Level 136 mmol/L (136-145) 136 mmol/L (136-145) Potassium Level 3.3 mmol/L (3.5-5.1) 3.5 mmol/L (3.5-5.1) Chloride Level 103 mmol/L (98-107) 104 mmol/L (98-107) Carbon Dioxide Level 26 mmol/L (21-32) 25 mmol/L (21-32) Anion Gap 7 (6-14) 7 (6-14) Blood Urea Nitrogen 22 mg/dL (7-20) 15 mg/dL (7-20) Creatinine 0.7 mg/dL (0.6-1.0) 0.8 mg/dL (0.6-1.0) Estimated GFR (Cockcroft-Gault) 80.1 68.7 Glucose Level 110 mg/dL (70-99) 104 mg/dL (70-99) Calcium Level 8.1 mg/dL (8.5-10.1) 8.3 mg/dL (8.5-10.1) Urine Collection Type Unknown Urine Color Dk yellow Urine Clarity Clear Urine pH 6.0 Urine Specific [place] 1.015 Urine Protein Negative mg/dL (NEG-TRACE) Urine Glucose (UA) Negative mg/dL (NEG) Urine Ketones (Stick) Negative mg/dL (NEG) Urine Blood Large (NEG) Urine Nitrite Negative (NEG) Urine Bilirubin Negative (NEG) Urine Urobilinogen Dipstick 4.0 mg/dL (0.2 mg/dL) Urine Leukocyte Esterase Small (NEG) Urine RBC 1-2 /HPF (0-2) Urine WBC 5-10 /HPF (0-4) Urine Squamous Epithelial Cells Few /LPF Urine Bacteria Moderate /HPF (0-FEW) Urine Hyaline Casts Occasional /HPF Urine Mucus Mod /LPF Laboratory Tests Test 08/16/16 13:20 08/17/16 04:00 Urine Collection Type Unknown Urine Color Dk yellow Urine Clarity Clear Urine pH 6.0 Urine Specific [place] 1.015 Urine Protein Negative mg/dL (NEG-TRACE) Urine Glucose (UA) Negative mg/dL (NEG) Urine Ketones (Stick) Negative mg/dL (NEG) Urine Blood Large (NEG) Urine Nitrite Negative (NEG) Urine Bilirubin Negative (NEG) Urine Urobilinogen Dipstick 4.0 mg/dL (0.2 mg/dL) Urine Leukocyte Esterase Small (NEG) Urine RBC 1-2 /HPF (0-2) Urine WBC 5-10 /HPF (0-4) Urine Squamous Epithelial Cells Few /LPF Urine Bacteria Moderate /HPF (0-FEW) Urine Hyaline Casts Occasional /HPF Urine Mucus Mod /LPF White Blood Count 10.4 x10^3/uL (4.0-11.0) Red Blood Count 2.73 x10^6/uL (3.50-5.40) Hemoglobin 8.1 g/dL (12.0-15.5) Hematocrit 23.8 % (36.0-47.0) Mean Corpuscular Volume 87 fL (79-100) Mean Corpuscular Hemoglobin 30 pg (25-35) Mean Corpuscular Hemoglobin Concent 34 g/dL (31-37) Red Cell Distribution Width 18.3 % (11.5-14.5) Platelet Count 211 x10^3/uL (140-400) Neutrophils (%) (Auto) 73 % (31-73) Lymphocytes (%) (Auto) 13 % (24-48) Monocytes (%) (Auto) 12 % (0-9) Eosinophils (%) (Auto) 1 % (0-3) Basophils (%) (Auto) 0 % (0-3) Neutrophils # (Auto) 7.6 x10^3uL (1.8-7.7) Lymphocytes # (Auto) 1.4 x10^3/uL (1.0-4.8) Monocytes # (Auto) 1.3 x10^3/uL (0.0-1.1) Eosinophils # (Auto) 0.1 x10^3/uL (0.0-0.7) Basophils # (Auto) 0.0 x10^3/uL (0.0-0.2) Sodium Level 136 mmol/L (136-145) Potassium Level 3.5 mmol/L (3.5-5.1) Chloride Level 104 mmol/L (98-107) Carbon Dioxide Level 25 mmol/L (21-32) Anion Gap 7 (6-14) Blood Urea Nitrogen 15 mg/dL (7-20) Creatinine 0.8 mg/dL (0.6-1.0) Estimated GFR (Cockcroft-Gault) 68.7 Glucose Level 104 mg/dL (70-99) Calcium Level 8.3 mg/dL (8.5-10.1) Medications Current Medications Pantoprazole Sodium (Protonix Vial) 40 mg 1X ONCE IVP Last administered on 10:22; Start 08/10/16 at 10:00; Stop 08/10/16 at 10:08; Status DC Ondansetron HCl (Zofran) 4 mg 1X ONCE IV Last administered on 08/10/16 10:22 ; Start 08/10/16 at 10:00; Stop 08/10/16 at 10:08; Status DC Fentanyl Citrate (Fentanyl 2ml Vial) 25 mcg 1X ONCE IV Last administered on 10:23; Start 08/10/16 at 10:00; Stop 08/10/16 at 10:08; Status DC Sodium Chloride 500 ml @ 500 mls/hr 1X ONCE IV Last administered on 10:22; Start 08/10/16 at 10:30; Stop 08/10/16 at 11:29; Status DC Ondansetron HCl (Zofran) 4 mg PRN Q8HRS PRN IV NAUSEA/VOMITING; Start 08/10/16 at 11:00; Stop 08/11/16 at 10:59; Status DC Fentanyl Citrate (Fentanyl 2ml Vial) 50 mcg PRN Q2HR PRN IV PAIN; Start at 11:00; Stop 08/11/16 at 10:59; Status DC Acetaminophen (Tylenol) 650 mg PRN Q4HRS PRN PO FEVER; Start 08/10/16 at 11:00 ; Stop 08/11/16 at 10:59; Status DC Potassium Chloride/Dextrose/ Sod Cl 1,000 ml @ 75 mls/hr 1X ONCE IV Last administered on 08/10/16 11:51; Start 08/10/16 at 11:00; Stop 08/11/16 at 00:19 ; Status DC Metoclopramide HCl (Reglan) 5 mg 1X STAT IV Last administered on 08/10/16 12: 22; Start 08/10/16 at 11:10; Stop 08/10/16 at 11:29; Status DC Erythromycin Lactobionate 250 mg/Sodium Chloride 100 ml @ 100 mls/hr ONCE STAT IV Last administered on 08/10/16 12:23; Start 08/10/16 at 11:11; Stop at 12:10; Status DC Midazolam HCl (Versed) 5 mg STK-MED ONCE .ROUTE ; Start 08/10/16 at 12:38; Stop 08/10/16 at 12:39; Status DC Midazolam HCl (Versed) 5 mg STK-MED ONCE IV Last administered on 08/10/16 12: 59; Start 08/10/16 at 12:59; Stop 08/10/16 at 13:03; Status DC Fentanyl Citrate (Fentanyl 2ml Vial) 100 mcg STK-MED ONCE IV Last administered on 08/10/16 13:00; Start 08/10/16 at 13:00; Stop 08/10/16 at 13:03; Status DC Midazolam HCl (Versed) 5 mg STK-MED ONCE IV Last administered on 08/10/16 13: 01; Start 08/10/16 at 13:01; Stop 08/10/16 at 13:03; Status DC Fentanyl Citrate (Fentanyl 2ml Vial) 100 mcg STK-MED ONCE IV Last administered on 08/10/16 13:02; Start 08/10/16 at 13:02; Stop 08/10/16 at 13:03; Status DC Midazolam HCl (Versed) 5 mg STK-MED ONCE IV Last administered on 08/10/16 13: 03; Start 08/10/16 at 13:03; Stop 08/10/16 at 13:04; Status DC Midazolam HCl (Versed) 5 mg STK-MED ONCE IV Last administered on 08/10/16 13: 15; Start 08/10/16 at 13:15; Stop 08/10/16 at 13:19; Status DC Fentanyl Citrate (Fentanyl 2ml Vial) 100 mcg STK-MED ONCE IV Last administered on 08/10/16 13:17; Start 08/10/16 at 13:17; Stop 08/10/16 at 13:19; Status DC Pantoprazole Sodium 80 mg/ Sodium Chloride 100 ml @ 10 mls/hr Q10H IV Last administered on 08/17/16 05:49; Start 08/10/16 at 13:45 Epinephrine HCl (Epinephrine Syringe) 1 mg STK-MED ONCE .ROUTE ; Start 08/10/16 at 13:42; Stop 08/10/16 at 13:43; Status DC Potassium Chloride (Klor-Con) 40 meq 1X ONCE PO Last administered on 08/13/16 09:42; Start 08/13/16 at 08:45; Stop 08/13/16 at 08:46; Status DC Docusate Sodium (Colace) 100 mg PRN DAILY PRN PO CONSTIPATION Last administered on 08/13/16 09:42; Start 08/13/16 at 08:45 Escitalopram Oxalate (Lexapro) 5 mg DAILY PO Last administered on 08/17/16 08: 39; Start 08/13/16 at 09:00 Acetaminophen (Tylenol) 650 mg PRN Q6HRS PRN PO FEVER; Start 08/13/16 at 12:45 Ondansetron HCl (Zofran) 4 mg PRN Q6HRS PRN IV NAUSEA/VOMITING; Start 08/13/16 at 12:45 Metoprolol Tartrate (Lopressor) 12.5 mg BID PO Last administered on 08/17/16 08 :40; Start 08/13/16 at 15:00 Midazolam HCl (Versed) 2 mg PRN 1X PRN IV PRIOR TO PROCEDURE; Start 08/14/16 at 15:00; Stop 08/14/16 at 20:00; Status DC Fentanyl Citrate (Fentanyl 2ml Vial) 25 mcg PRN Q5MIN PRN IV X 2 DOSES FOR PAIN ; Start 08/14/16 at 15:00; Stop 08/15/16 at 14:59; Status DC Fentanyl Citrate (Fentanyl 2ml Vial) 50 mcg PRN Q5MIN PRN IV X 2 DOSES FOR PAIN ; Start 08/14/16 at 15:00; Stop 08/14/16 at 20:00; Status DC Lidocaine HCl 2 ml 1X PRN PRN ID IV START; Start 08/14/16 at 15:00; Stop at 20:00; Status DC Propofol 20 ml @ As Directed STK-MED ONCE IV ; Start 08/14/16 at 17:32; Stop 08/14 at 17:33; Status DC Lidocaine HCl (Lidocaine Pf 2% Vial) 5 ml STK-MED ONCE .ROUTE ; Start 08/14/16 at 17:32; Stop 08/14/16 at 17:33; Status DC Potassium Chloride (Klor-Con) 40 meq 1X ONCE PO Last administered on 08/16/16 08:53; Start 08/16/16 at 08:30; Stop 08/16/16 at 08:31; Status DC Ceftriaxone Sodium 1 gm/ Sodium Chloride 50 ml @ 100 mls/hr Q24H IV Last administered on 08/16/16 17:38; Start 08/16/16 at 17:00 Potassium Chloride (Klor-Con) 20 meq 1X ONCE PO ; Start 08/17/16 at 12:30; Stop 08/17/16 at 12:31; Status UNV Active Scripts Active Docusate Sodium 100 Mg Capsule 100 Mg PO PRN DAILY PRN Pantoprazole Sodium 40 Mg Tablet.dr 40 Mg PO BIDAC Reported Nifedipine Er (Nifedipine) 30 Mg Tab.er.24 30 Mg PO DAILY Loratadine 10 Mg Tablet 10 Mg PO DAILY Lexapro (Escitalopram Oxalate) 5 Mg Tablet 5 Mg PO DAILY Vitals/I & O Vital Sign - Last 24 Hours 5/6/17 5/6/17 5/6/17 5/6/17 15:00 19:00 19:10 20:54 Temp 98.6 98.1 98.6 98.1 Pulse 82 110 110 Resp 18 18 B/P (MAP) 125/67 (86) 123/61 (81) 123/61 Pulse Ox 98 98 O2 Delivery Room Air Room Air Room Air 08/16/16 08/17/16 08/17/16 08/17/16 22:19 03:13 07:00 08:33 Temp 99.3 99.0 98.7 99.3 99.0 98.7 Pulse 85 75 82 Resp 18 16 19 B/P (MAP) 138/53 (81) 126/57 (80) 151/65 (93) Pulse Ox 98 99 96 O2 Delivery Room Air Room Air Room Air Room Air 08/17/16 08/17/16 08:40 11:00 Temp 98.8 98.8 Pulse 82 73 Resp 19 B/P (MAP) 151/65 120/43 (68) Pulse Ox 95 O2 Delivery Room Air Intake and Output 08/16/16 08/16/16 08/17/16 15:00 23:00 07:00 Intake Total 360 ml 100 ml Balance 360 ml 100 ml Problem List Problems Medical Problems: (1) GIB (gastrointestinal bleeding) Status: Acute (2) Upper GI bleed Status: Acute Assessment Acute blood loss anemia- S/P priro duodenal embolization, Hg stable, cpm NATALIA SALDAÑA MD August 17, 2016 12:26
--- NOTE | 2016-08-17 12:29 | PDOC ---
PROGRESS NOTES Chief Complaint Chief Complaint 1. Duodenal GIB, acute : s/p dual scopes 07/11 and embolization on 07/12, this time got cautery and epi 08/10 2. Anemia: acute blood loss, upper, 3. Dehydration 4. GELA, vasomotor 5. Uremia: 2/2 UGIB. 6. Dementia: moderate 7. HTN: on nifedipine at home 8. SIRS, no sepsis 9. hypokalemia on protonix drip History of Present Illness History of Present Illness hgb stable again up to chair remembers me from vitals stable, discussed with GI team, monitor hgb again tomorrow, and may DC to [place] advance diet as tolerated Vitals Vitals Vital Signs Date Time Temp Pulse Resp B/P (MAP) Pulse Ox O2 Delivery O2 Flow Rate FiO2 08/17/16 11:00 98.8 73 19 120/43 (68) 95 Room Air 98.8 Physical Exam General: Alert, Oriented X3, Cooperative, No acute distress Heart: Regular rate, Normal S1, Normal S2, No murmurs Lungs: Clear Abdomen: Soft, Other (mild epigastric TTP) Extremities: No clubbing, No cyanosis Skin: No rashes, No breakdown Labs LABS Laboratory Tests Test 08/16/16 13:20 08/17/16 04:00 Urine Collection Type Unknown Urine Color Dk yellow Urine Clarity Clear Urine pH 6.0 Urine Specific [place] 1.015 Urine Protein Negative mg/dL (NEG-TRACE) Urine Glucose (UA) Negative mg/dL (NEG) Urine Ketones (Stick) Negative mg/dL (NEG) Urine Blood Large (NEG) Urine Nitrite Negative (NEG) Urine Bilirubin Negative (NEG) Urine Urobilinogen Dipstick 4.0 mg/dL (0.2 mg/dL) Urine Leukocyte Esterase Small (NEG) Urine RBC 1-2 /HPF (0-2) Urine WBC 5-10 /HPF (0-4) Urine Squamous Epithelial Cells Few /LPF Urine Bacteria Moderate /HPF (0-FEW) Urine Hyaline Casts Occasional /HPF Urine Mucus Mod /LPF White Blood Count 10.4 x10^3/uL (4.0-11.0) Red Blood Count 2.73 x10^6/uL (3.50-5.40) Hemoglobin 8.1 g/dL (12.0-15.5) Hematocrit 23.8 % (36.0-47.0) Mean Corpuscular Volume 87 fL (79-100) Mean Corpuscular Hemoglobin 30 pg (25-35) Mean Corpuscular Hemoglobin Concent 34 g/dL (31-37) Red Cell Distribution Width 18.3 % (11.5-14.5) Platelet Count 211 x10^3/uL (140-400) Neutrophils (%) (Auto) 73 % (31-73) Lymphocytes (%) (Auto) 13 % (24-48) Monocytes (%) (Auto) 12 % (0-9) Eosinophils (%) (Auto) 1 % (0-3) Basophils (%) (Auto) 0 % (0-3) Neutrophils # (Auto) 7.6 x10^3uL (1.8-7.7) Lymphocytes # (Auto) 1.4 x10^3/uL (1.0-4.8) Monocytes # (Auto) 1.3 x10^3/uL (0.0-1.1) Eosinophils # (Auto) 0.1 x10^3/uL (0.0-0.7) Basophils # (Auto) 0.0 x10^3/uL (0.0-0.2) Sodium Level 136 mmol/L (136-145) Potassium Level 3.5 mmol/L (3.5-5.1) Chloride Level 104 mmol/L (98-107) Carbon Dioxide Level 25 mmol/L (21-32) Anion Gap 7 (6-14) Blood Urea Nitrogen 15 mg/dL (7-20) Creatinine 0.8 mg/dL (0.6-1.0) Estimated GFR (Cockcroft-Gault) 68.7 Glucose Level 104 mg/dL (70-99) Calcium Level 8.3 mg/dL (8.5-10.1) Assessment and Plan Assessmemt and Plan Problems Medical Problems: (1) GIB (gastrointestinal bleeding) Status: Acute (2) Upper GI bleed Status: Acute Problems: Comment Review of Relevant I have reviewed the following items jose luis (where applicable) has been applied. Labs Laboratory Tests Test 08/15/16 15:10 08/16/16 05:00 08/16/16 13:20 08/17/16 04:00 White Blood Count 11.6 x10^3/uL (4.0-11.0) 11.5 x10^3/uL (4.0-11.0) 10.4 x10^3/uL (4.0-11.0) Red Blood Count 2.81 x10^6/uL (3.50-5.40) 2.75 x10^6/uL (3.50-5.40) 2.73 x10^6/uL (3.50-5.40) Hemoglobin 8.3 g/dL (12.0-15.5) 8.0 g/dL (12.0-15.5) 8.1 g/dL (12.0-15.5) Hematocrit 24.0 % (36.0-47.0) 23.8 % (36.0-47.0) 23.8 % (36.0-47.0) Mean Corpuscular Volume 85 fL (79-100) 87 fL (79-100) 87 fL (79-100) Mean Corpuscular Hemoglobin 30 pg (25-35) 29 pg (25-35) 30 pg (25-35) Mean Corpuscular Hemoglobin Concent 35 g/dL (31-37) 34 g/dL (31-37) 34 g/dL (31-37) Red Cell Distribution Width 17.4 % (11.5-14.5) 17.6 % (11.5-14.5) 18.3 % (11.5-14.5) Platelet Count 169 x10^3/uL (140-400) 179 x10^3/uL (140-400) 211 x10^3/uL (140-400) Neutrophils (%) (Auto) 79 % (31-73) 73 % (31-73) Lymphocytes (%) (Auto) 10 % (24-48) 13 % (24-48) Monocytes (%) (Auto) 10 % (0-9) 12 % (0-9) Eosinophils (%) (Auto) 1 % (0-3) 1 % (0-3) Basophils (%) (Auto) 0 % (0-3) 0 % (0-3) Neutrophils # (Auto) 9.0 x10^3uL (1.8-7.7) 7.6 x10^3uL (1.8-7.7) Lymphocytes # (Auto) 1.2 x10^3/uL (1.0-4.8) 1.4 x10^3/uL (1.0-4.8) Monocytes # (Auto) 1.1 x10^3/uL (0.0-1.1) 1.3 x10^3/uL (0.0-1.1) Eosinophils # (Auto) 0.1 x10^3/uL (0.0-0.7) 0.1 x10^3/uL (0.0-0.7) Basophils # (Auto) 0.0 x10^3/uL (0.0-0.2) 0.0 x10^3/uL (0.0-0.2) Sodium Level 136 mmol/L (136-145) 136 mmol/L (136-145) Potassium Level 3.3 mmol/L (3.5-5.1) 3.5 mmol/L (3.5-5.1) Chloride Level 103 mmol/L (98-107) 104 mmol/L (98-107) Carbon Dioxide Level 26 mmol/L (21-32) 25 mmol/L (21-32) Anion Gap 7 (6-14) 7 (6-14) Blood Urea Nitrogen 22 mg/dL (7-20) 15 mg/dL (7-20) Creatinine 0.7 mg/dL (0.6-1.0) 0.8 mg/dL (0.6-1.0) Estimated GFR (Cockcroft-Gault) 80.1 68.7 Glucose Level 110 mg/dL (70-99) 104 mg/dL (70-99) Calcium Level 8.1 mg/dL (8.5-10.1) 8.3 mg/dL (8.5-10.1) Urine Collection Type Unknown Urine Color Dk yellow Urine Clarity Clear Urine pH 6.0 Urine Specific [place] 1.015 Urine Protein Negative mg/dL (NEG-TRACE) Urine Glucose (UA) Negative mg/dL (NEG) Urine Ketones (Stick) Negative mg/dL (NEG) Urine Blood Large (NEG) Urine Nitrite Negative (NEG) Urine Bilirubin Negative (NEG) Urine Urobilinogen Dipstick 4.0 mg/dL (0.2 mg/dL) Urine Leukocyte Esterase Small (NEG) Urine RBC 1-2 /HPF (0-2) Urine WBC 5-10 /HPF (0-4) Urine Squamous Epithelial Cells Few /LPF Urine Bacteria Moderate /HPF (0-FEW) Urine Hyaline Casts Occasional /HPF Urine Mucus Mod /LPF Laboratory Tests Test 08/16/16 13:20 08/17/16 04:00 Urine Collection Type Unknown Urine Color Dk yellow Urine Clarity Clear Urine pH 6.0 Urine Specific [place] 1.015 Urine Protein Negative mg/dL (NEG-TRACE) Urine Glucose (UA) Negative mg/dL (NEG) Urine Ketones (Stick) Negative mg/dL (NEG) Urine Blood Large (NEG) Urine Nitrite Negative (NEG) Urine Bilirubin Negative (NEG) Urine Urobilinogen Dipstick 4.0 mg/dL (0.2 mg/dL) Urine Leukocyte Esterase Small (NEG) Urine RBC 1-2 /HPF (0-2) Urine WBC 5-10 /HPF (0-4) Urine Squamous Epithelial Cells Few /LPF Urine Bacteria Moderate /HPF (0-FEW) Urine Hyaline Casts Occasional /HPF Urine Mucus Mod /LPF White Blood Count 10.4 x10^3/uL (4.0-11.0) Red Blood Count 2.73 x10^6/uL (3.50-5.40) Hemoglobin 8.1 g/dL (12.0-15.5) Hematocrit 23.8 % (36.0-47.0) Mean Corpuscular Volume 87 fL (79-100) Mean Corpuscular Hemoglobin 30 pg (25-35) Mean Corpuscular Hemoglobin Concent 34 g/dL (31-37) Red Cell Distribution Width 18.3 % (11.5-14.5) Platelet Count 211 x10^3/uL (140-400) Neutrophils (%) (Auto) 73 % (31-73) Lymphocytes (%) (Auto) 13 % (24-48) Monocytes (%) (Auto) 12 % (0-9) Eosinophils (%) (Auto) 1 % (0-3) Basophils (%) (Auto) 0 % (0-3) Neutrophils # (Auto) 7.6 x10^3uL (1.8-7.7) Lymphocytes # (Auto) 1.4 x10^3/uL (1.0-4.8) Monocytes # (Auto) 1.3 x10^3/uL (0.0-1.1) Eosinophils # (Auto) 0.1 x10^3/uL (0.0-0.7) Basophils # (Auto) 0.0 x10^3/uL (0.0-0.2) Sodium Level 136 mmol/L (136-145) Potassium Level 3.5 mmol/L (3.5-5.1) Chloride Level 104 mmol/L (98-107) Carbon Dioxide Level 25 mmol/L (21-32) Anion Gap 7 (6-14) Blood Urea Nitrogen 15 mg/dL (7-20) Creatinine 0.8 mg/dL (0.6-1.0) Estimated GFR (Cockcroft-Gault) 68.7 Glucose Level 104 mg/dL (70-99) Calcium Level 8.3 mg/dL (8.5-10.1) Medications Current Medications Pantoprazole Sodium (Protonix Vial) 40 mg 1X ONCE IVP Last administered on 10:22; Start 08/10/16 at 10:00; Stop 08/10/16 at 10:08; Status DC Ondansetron HCl (Zofran) 4 mg 1X ONCE IV Last administered on 08/10/16 10:22 ; Start 08/10/16 at 10:00; Stop 08/10/16 at 10:08; Status DC Fentanyl Citrate (Fentanyl 2ml Vial) 25 mcg 1X ONCE IV Last administered on 10:23; Start 08/10/16 at 10:00; Stop 08/10/16 at 10:08; Status DC Sodium Chloride 500 ml @ 500 mls/hr 1X ONCE IV Last administered on 10:22; Start 08/10/16 at 10:30; Stop 08/10/16 at 11:29; Status DC Ondansetron HCl (Zofran) 4 mg PRN Q8HRS PRN IV NAUSEA/VOMITING; Start 08/10/16 at 11:00; Stop 08/11/16 at 10:59; Status DC Fentanyl Citrate (Fentanyl 2ml Vial) 50 mcg PRN Q2HR PRN IV PAIN; Start at 11:00; Stop 08/11/16 at 10:59; Status DC Acetaminophen (Tylenol) 650 mg PRN Q4HRS PRN PO FEVER; Start 08/10/16 at 11:00 ; Stop 08/11/16 at 10:59; Status DC Potassium Chloride/Dextrose/ Sod Cl 1,000 ml @ 75 mls/hr 1X ONCE IV Last administered on 08/10/16 11:51; Start 08/10/16 at 11:00; Stop 08/11/16 at 00:19 ; Status DC Metoclopramide HCl (Reglan) 5 mg 1X STAT IV Last administered on 08/10/16 12: 22; Start 08/10/16 at 11:10; Stop 08/10/16 at 11:29; Status DC Erythromycin Lactobionate 250 mg/Sodium Chloride 100 ml @ 100 mls/hr ONCE STAT IV Last administered on 08/10/16 12:23; Start 08/10/16 at 11:11; Stop at 12:10; Status DC Midazolam HCl (Versed) 5 mg STK-MED ONCE .ROUTE ; Start 08/10/16 at 12:38; Stop 08/10/16 at 12:39; Status DC Midazolam HCl (Versed) 5 mg STK-MED ONCE IV Last administered on 08/10/16 12: 59; Start 08/10/16 at 12:59; Stop 08/10/16 at 13:03; Status DC Fentanyl Citrate (Fentanyl 2ml Vial) 100 mcg STK-MED ONCE IV Last administered on 08/10/16 13:00; Start 08/10/16 at 13:00; Stop 08/10/16 at 13:03; Status DC Midazolam HCl (Versed) 5 mg STK-MED ONCE IV Last administered on 08/10/16 13: 01; Start 08/10/16 at 13:01; Stop 08/10/16 at 13:03; Status DC Fentanyl Citrate (Fentanyl 2ml Vial) 100 mcg STK-MED ONCE IV Last administered on 08/10/16 13:02; Start 08/10/16 at 13:02; Stop 08/10/16 at 13:03; Status DC Midazolam HCl (Versed) 5 mg STK-MED ONCE IV Last administered on 08/10/16 13: 03; Start 08/10/16 at 13:03; Stop 08/10/16 at 13:04; Status DC Midazolam HCl (Versed) 5 mg STK-MED ONCE IV Last administered on 08/10/16 13: 15; Start 08/10/16 at 13:15; Stop 08/10/16 at 13:19; Status DC Fentanyl Citrate (Fentanyl 2ml Vial) 100 mcg STK-MED ONCE IV Last administered on 08/10/16 13:17; Start 08/10/16 at 13:17; Stop 08/10/16 at 13:19; Status DC Pantoprazole Sodium 80 mg/ Sodium Chloride 100 ml @ 10 mls/hr Q10H IV Last administered on 08/17/16 05:49; Start 08/10/16 at 13:45 Epinephrine HCl (Epinephrine Syringe) 1 mg STK-MED ONCE .ROUTE ; Start 08/10/16 at 13:42; Stop 08/10/16 at 13:43; Status DC Potassium Chloride (Klor-Con) 40 meq 1X ONCE PO Last administered on 08/13/16 09:42; Start 08/13/16 at 08:45; Stop 08/13/16 at 08:46; Status DC Docusate Sodium (Colace) 100 mg PRN DAILY PRN PO CONSTIPATION Last administered on 08/13/16 09:42; Start 08/13/16 at 08:45 Escitalopram Oxalate (Lexapro) 5 mg DAILY PO Last administered on 08/17/16 08: 39; Start 08/13/16 at 09:00 Acetaminophen (Tylenol) 650 mg PRN Q6HRS PRN PO FEVER; Start 08/13/16 at 12:45 Ondansetron HCl (Zofran) 4 mg PRN Q6HRS PRN IV NAUSEA/VOMITING; Start 08/13/16 at 12:45 Metoprolol Tartrate (Lopressor) 12.5 mg BID PO Last administered on 08/17/16 08 :40; Start 08/13/16 at 15:00 Midazolam HCl (Versed) 2 mg PRN 1X PRN IV PRIOR TO PROCEDURE; Start 08/14/16 at 15:00; Stop 08/14/16 at 20:00; Status DC Fentanyl Citrate (Fentanyl 2ml Vial) 25 mcg PRN Q5MIN PRN IV X 2 DOSES FOR PAIN ; Start 08/14/16 at 15:00; Stop 08/15/16 at 14:59; Status DC Fentanyl Citrate (Fentanyl 2ml Vial) 50 mcg PRN Q5MIN PRN IV X 2 DOSES FOR PAIN ; Start 08/14/16 at 15:00; Stop 08/14/16 at 20:00; Status DC Lidocaine HCl 2 ml 1X PRN PRN ID IV START; Start 08/14/16 at 15:00; Stop at 20:00; Status DC Propofol 20 ml @ As Directed STK-MED ONCE IV ; Start 08/14/16 at 17:32; Stop 08/14 at 17:33; Status DC Lidocaine HCl (Lidocaine Pf 2% Vial) 5 ml STK-MED ONCE .ROUTE ; Start 08/14/16 at 17:32; Stop 08/14/16 at 17:33; Status DC Potassium Chloride (Klor-Con) 40 meq 1X ONCE PO Last administered on 08/16/16 08:53; Start 08/16/16 at 08:30; Stop 08/16/16 at 08:31; Status DC Ceftriaxone Sodium 1 gm/ Sodium Chloride 50 ml @ 100 mls/hr Q24H IV Last administered on 08/16/16 17:38; Start 08/16/16 at 17:00 Active Scripts Active Docusate Sodium 100 Mg Capsule 100 Mg PO PRN DAILY PRN Pantoprazole Sodium 40 Mg Tablet.dr 40 Mg PO BIDAC Reported Nifedipine Er (Nifedipine) 30 Mg Tab.er.24 30 Mg PO DAILY Loratadine 10 Mg Tablet 10 Mg PO DAILY Lexapro (Escitalopram Oxalate) 5 Mg Tablet 5 Mg PO DAILY Vitals/I & O Vital Sign - Last 24 Hours 08/16/16 08/16/16 08/16/16 08/16/16 15:00 19:00 19:10 20:54 Temp 98.6 98.1 98.6 98.1 Pulse 82 110 110 Resp 18 18 B/P (MAP) 125/67 (86) 123/61 (81) 123/61 Pulse Ox 98 98 O2 Delivery Room Air Room Air Room Air 08/16/16 08/17/16 08/17/16 08/17/16 22:19 03:13 07:00 08:33 Temp 99.3 99.0 98.7 99.3 99.0 98.7 Pulse 85 75 82 Resp 18 16 19 B/P (MAP) 138/53 (81) 126/57 (80) 151/65 (93) Pulse Ox 98 99 96 O2 Delivery Room Air Room Air Room Air Room Air 08/17/16 08/17/16 08:40 11:00 Temp 98.8 98.8 Pulse 82 73 Resp 19 B/P (MAP) 151/65 120/43 (68) Pulse Ox 95 O2 Delivery Room Air Intake and Output 08/16/16 08/16/16 08/17/16 15:00 23:00 07:00 Intake Total 360 ml 100 ml Balance 360 ml 100 ml Nutrition Consultation Dietary Evaluation: Recommendations by RD: Increase Calorie Intake, Protein supplementation Comments: When able to advance diet, rec. supplement of choice TID to better meet nutr needs If unable to advance diet within 24-48 hours, would consider PPN to meet short-term nutrition needs Expected Outcomes/Goals: diet advancement Interpretation of weight loss: >7.5% in 3 months Malnutrition Findings: Food and Nutrition Intake (Mod: <75% est energy req 7days Body Fat Depletion (Non Severe: Mild Depletion Reduced Metrology Engineer Strength: N/A Reduced Metrology Engineer Strength (Non-Sev: N/A Malnutrition related to morbid: No Weight Status: Overweight Fluid Accumulation (N/A): N/A HAYDE PAREKH MD August 17, 2016 12:29
[2016-08-17] MEDS ORDERED: POTASSIUM CHLORIDE 20 MEQ TABLET.ER. PO ONE (12:30)
[2016-08-17 15:00] VITALS: BP 113/63
[2016-08-17 19:00] VITALS: BP 129/61
[2016-08-17 23:03] VITALS: BP 121/54
[2016-08-18 03:16] VITALS: BP_SYST 126; BP_SYST 136; BP_DIAS 62; BP_DIAS 89
[2016-08-18 04:07] LABS: BASO % 0 % (0-3); EOS % 1 % (0-3); HEMOGLOBIN 7.4 g/dL (12.0-15.5); LYMPH # 1.2 x10^3/uL (1.0-4.8); LYMPH % 11 % (24-48); MEAN CORPUSCULAR HEMOGLOBIN 30 pg (25-35); MEAN CORPUSCULAR HGB CONC 34 g/dL (31-37); MEAN CORPUSCULAR VOLUME 88 fL (79-100); MONO % 11 % (0-9); NEUT % 76 % (31-73); PLATELET COUNT 220 x10^3/uL (140-400); RED BLOOD COUNT 2.49 x10^6/uL (3.50-5.40); WHITE BLOOD COUNT 11.1 x10^3/uL (4.0-11.0)
[2016-08-18 04:19] LABS: CALCIUM 8.4 mg/dL (8.5-10.1); CREATININE 0.9 mg/dL (0.6-1.0); GFR 59.9; POTASSIUM 3.8 mmol/L (3.5-5.1)
[2016-08-18] MEDS: PANTOPRAZOLE SODIUM IV 80 MG in IV NORMAL SALINE 100ML 100 ML IV SCH (04:23)
[2016-08-18 07:56] VITALS: BP 113/52
[2016-08-18] MEDS: ESCITALOPRAM 5 MG TABLET. PO SCH (08:37)
[2016-08-18] MEDS: METOPROLOL TART IMMED RELEASE 25 MG TABLET. PO SCH ×2 (08:38→20:38)
[2016-08-18 10:47] VITALS: BP 117/66
--- NOTE | 2016-08-18 12:22 | PDOC ---
PROGRESS NOTES Chief Complaint Chief Complaint UGIB ASSESSMENT AND PLAN: 1. Duodenal GIB, acute : s/p dual scopes 07/11 and 07/12, with cautery and epi embolization 08/10. seems to be stabilizing by H/H. on PPI bid 2. Anemia: acute blood loss; sl decreased H/H today. transfuse PRBC x1. monitor. 3. Nutrition: flull liquids, but PO intake poor. encourage increase 4. Dehydration: resolved 5. GELA: vasomotor. resolved 6. Uremia: 2/2 UGIB. resolved 7. Hypokalemia: resolved 8. HTN: on BB here, replacing nifedipine at home. monitor HR 9. Dementia: moderate 10. Dispo: to SNF in AM (?) History of Present Illness History of Present Illness sleeping, but waking easily. denies pain. not hungry. denies nausea or vomiting Vitals Vitals Vital Signs Date Time Temp Pulse Resp B/P (MAP) Pulse Ox O2 Delivery O2 Flow Rate FiO2 08/18/16 10:47 97.6 86 18 117/66 (83) 97 Room Air 97.6 08/18/16 07:50 2.0 Physical Exam General: Alert, Oriented X3, Cooperative, No acute distress Heart: Regular rate, No murmurs Lungs: Clear Abdomen: Soft, No tenderness Extremities: No clubbing, No cyanosis Skin: No rashes Labs LABS Laboratory Tests Test 08/18/16 03:12 White Blood Count 11.1 x10^3/uL (4.0-11.0) Red Blood Count 2.49 x10^6/uL (3.50-5.40) Hemoglobin 7.4 g/dL (12.0-15.5) Hematocrit 22.0 % (36.0-47.0) Mean Corpuscular Volume 88 fL (79-100) Mean Corpuscular Hemoglobin 30 pg (25-35) Mean Corpuscular Hemoglobin Concent 34 g/dL (31-37) Red Cell Distribution Width 18.0 % (11.5-14.5) Platelet Count 220 x10^3/uL (140-400) Neutrophils (%) (Auto) 76 % (31-73) Lymphocytes (%) (Auto) 11 % (24-48) Monocytes (%) (Auto) 11 % (0-9) Eosinophils (%) (Auto) 1 % (0-3) Basophils (%) (Auto) 0 % (0-3) Neutrophils # (Auto) 8.5 x10^3uL (1.8-7.7) Lymphocytes # (Auto) 1.2 x10^3/uL (1.0-4.8) Monocytes # (Auto) 1.2 x10^3/uL (0.0-1.1) Eosinophils # (Auto) 0.1 x10^3/uL (0.0-0.7) Basophils # (Auto) 0.0 x10^3/uL (0.0-0.2) Sodium Level 137 mmol/L (136-145) Potassium Level 3.8 mmol/L (3.5-5.1) Chloride Level 104 mmol/L (98-107) Carbon Dioxide Level 26 mmol/L (21-32) Anion Gap 7 (6-14) Blood Urea Nitrogen 16 mg/dL (7-20) Creatinine 0.9 mg/dL (0.6-1.0) Estimated GFR (Cockcroft-Gault) 59.9 Glucose Level 97 mg/dL (70-99) Calcium Level 8.4 mg/dL (8.5-10.1) Nutrition Consultation Dietary Evaluation: Recommendations by RD: Increase Calorie Intake, Protein supplementation Comments: -Pt agrees to the strawberry boost plus protein supplement if it is mixed with icecream- will send BID (Boost is 360 calories/14 g protein per serving) -Send vanilla boost pudding BID (240 calories/7 g protein per serving) Expected Outcomes/Goals: diet advancement Interpretation of weight loss: >7.5% in 3 months Malnutrition Findings: Food and Nutrition Intake (Mod: <75% est energy req 7days Body Fat Depletion (Non Severe: Mild Depletion Reduced Radiator Fitter Strength: N/A Reduced Radiator Fitter Strength (Non-Sev: N/A Malnutrition related to morbid: No Weight Status: Overweight Fluid Accumulation (N/A): N/A ANNY KILLIAN MD August 18, 2016 12:22
--- NOTE | 2016-08-18 14:08 | PDOC ---
G I PROGRESS NOTE Subjective No complaints. Eating full liquids. Multiple family in attendance. Objective Conversation with makes me wonder if really taking a PPI prior to this admission. Physical Exam Lungs clear. RRR Abdomen soft, not tender nor distended. Review of Relevant I have reviewed the following items jose luis (where applicable) has been applied. Labs Laboratory Tests Test 08/17/16 04:00 08/18/16 03:12 White Blood Count 10.4 x10^3/uL (4.0-11.0) 11.1 x10^3/uL (4.0-11.0) Red Blood Count 2.73 x10^6/uL (3.50-5.40) 2.49 x10^6/uL (3.50-5.40) Hemoglobin 8.1 g/dL (12.0-15.5) 7.4 g/dL (12.0-15.5) Hematocrit 23.8 % (36.0-47.0) 22.0 % (36.0-47.0) Mean Corpuscular Volume 87 fL (79-100) 88 fL (79-100) Mean Corpuscular Hemoglobin 30 pg (25-35) 30 pg (25-35) Mean Corpuscular Hemoglobin Concent 34 g/dL (31-37) 34 g/dL (31-37) Red Cell Distribution Width 18.3 % (11.5-14.5) 18.0 % (11.5-14.5) Platelet Count 211 x10^3/uL (140-400) 220 x10^3/uL (140-400) Neutrophils (%) (Auto) 73 % (31-73) 76 % (31-73) Lymphocytes (%) (Auto) 13 % (24-48) 11 % (24-48) Monocytes (%) (Auto) 12 % (0-9) 11 % (0-9) Eosinophils (%) (Auto) 1 % (0-3) 1 % (0-3) Basophils (%) (Auto) 0 % (0-3) 0 % (0-3) Neutrophils # (Auto) 7.6 x10^3uL (1.8-7.7) 8.5 x10^3uL (1.8-7.7) Lymphocytes # (Auto) 1.4 x10^3/uL (1.0-4.8) 1.2 x10^3/uL (1.0-4.8) Monocytes # (Auto) 1.3 x10^3/uL (0.0-1.1) 1.2 x10^3/uL (0.0-1.1) Eosinophils # (Auto) 0.1 x10^3/uL (0.0-0.7) 0.1 x10^3/uL (0.0-0.7) Basophils # (Auto) 0.0 x10^3/uL (0.0-0.2) 0.0 x10^3/uL (0.0-0.2) Sodium Level 136 mmol/L (136-145) 137 mmol/L (136-145) Potassium Level 3.5 mmol/L (3.5-5.1) 3.8 mmol/L (3.5-5.1) Chloride Level 104 mmol/L (98-107) 104 mmol/L (98-107) Carbon Dioxide Level 25 mmol/L (21-32) 26 mmol/L (21-32) Anion Gap 7 (6-14) 7 (6-14) Blood Urea Nitrogen 15 mg/dL (7-20) 16 mg/dL (7-20) Creatinine 0.8 mg/dL (0.6-1.0) 0.9 mg/dL (0.6-1.0) Estimated GFR (Cockcroft-Gault) 68.7 59.9 Glucose Level 104 mg/dL (70-99) 97 mg/dL (70-99) Calcium Level 8.3 mg/dL (8.5-10.1) 8.4 mg/dL (8.5-10.1) Laboratory Tests Test 08/18/16 03:12 White Blood Count 11.1 x10^3/uL (4.0-11.0) Red Blood Count 2.49 x10^6/uL (3.50-5.40) Hemoglobin 7.4 g/dL (12.0-15.5) Hematocrit 22.0 % (36.0-47.0) Mean Corpuscular Volume 88 fL (79-100) Mean Corpuscular Hemoglobin 30 pg (25-35) Mean Corpuscular Hemoglobin Concent 34 g/dL (31-37) Red Cell Distribution Width 18.0 % (11.5-14.5) Platelet Count 220 x10^3/uL (140-400) Neutrophils (%) (Auto) 76 % (31-73) Lymphocytes (%) (Auto) 11 % (24-48) Monocytes (%) (Auto) 11 % (0-9) Eosinophils (%) (Auto) 1 % (0-3) Basophils (%) (Auto) 0 % (0-3) Neutrophils # (Auto) 8.5 x10^3uL (1.8-7.7) Lymphocytes # (Auto) 1.2 x10^3/uL (1.0-4.8) Monocytes # (Auto) 1.2 x10^3/uL (0.0-1.1) Eosinophils # (Auto) 0.1 x10^3/uL (0.0-0.7) Basophils # (Auto) 0.0 x10^3/uL (0.0-0.2) Sodium Level 137 mmol/L (136-145) Potassium Level 3.8 mmol/L (3.5-5.1) Chloride Level 104 mmol/L (98-107) Carbon Dioxide Level 26 mmol/L (21-32) Anion Gap 7 (6-14) Blood Urea Nitrogen 16 mg/dL (7-20) Creatinine 0.9 mg/dL (0.6-1.0) Estimated GFR (Cockcroft-Gault) 59.9 Glucose Level 97 mg/dL (70-99) Calcium Level 8.4 mg/dL (8.5-10.1) Microbiology 08/16/16 Urine Culture - Preliminary, Resulted 08/16/16 Urine Culture Result 1 (ANDRA) - Preliminary, Resulted Minor dip in hemoglobin. Medications Current Medications Pantoprazole Sodium (Protonix Vial) 40 mg 1X ONCE IVP Last administered on 10:22; Start 08/10/16 at 10:00; Stop 08/10/16 at 10:08; Status DC Ondansetron HCl (Zofran) 4 mg 1X ONCE IV Last administered on 08/10/16 10:22 ; Start 08/10/16 at 10:00; Stop 08/10/16 at 10:08; Status DC Fentanyl Citrate (Fentanyl 2ml Vial) 25 mcg 1X ONCE IV Last administered on 10:23; Start 08/10/16 at 10:00; Stop 08/10/16 at 10:08; Status DC Sodium Chloride 500 ml @ 500 mls/hr 1X ONCE IV Last administered on 10:22; Start 08/10/16 at 10:30; Stop 08/10/16 at 11:29; Status DC Ondansetron HCl (Zofran) 4 mg PRN Q8HRS PRN IV NAUSEA/VOMITING; Start 08/10/16 at 11:00; Stop 08/11/16 at 10:59; Status DC Fentanyl Citrate (Fentanyl 2ml Vial) 50 mcg PRN Q2HR PRN IV PAIN; Start at 11:00; Stop 08/11/16 at 10:59; Status DC Acetaminophen (Tylenol) 650 mg PRN Q4HRS PRN PO FEVER; Start 08/10/16 at 11:00 ; Stop 08/11/16 at 10:59; Status DC Potassium Chloride/Dextrose/ Sod Cl 1,000 ml @ 75 mls/hr 1X ONCE IV Last administered on 08/10/16 11:51; Start 08/10/16 at 11:00; Stop 08/11/16 at 00:19 ; Status DC Metoclopramide HCl (Reglan) 5 mg 1X STAT IV Last administered on 08/10/16 12: 22; Start 08/10/16 at 11:10; Stop 08/10/16 at 11:29; Status DC Erythromycin Lactobionate 250 mg/Sodium Chloride 100 ml @ 100 mls/hr ONCE STAT IV Last administered on 08/10/16 12:23; Start 08/10/16 at 11:11; Stop at 12:10; Status DC Midazolam HCl (Versed) 5 mg STK-MED ONCE .ROUTE ; Start 08/10/16 at 12:38; Stop 08/10/16 at 12:39; Status DC Midazolam HCl (Versed) 5 mg STK-MED ONCE IV Last administered on 08/10/16 12: 59; Start 08/10/16 at 12:59; Stop 08/10/16 at 13:03; Status DC Fentanyl Citrate (Fentanyl 2ml Vial) 100 mcg STK-MED ONCE IV Last administered on 08/10/16 13:00; Start 08/10/16 at 13:00; Stop 08/10/16 at 13:03; Status DC Midazolam HCl (Versed) 5 mg STK-MED ONCE IV Last administered on 08/10/16 13: 01; Start 08/10/16 at 13:01; Stop 08/10/16 at 13:03; Status DC Fentanyl Citrate (Fentanyl 2ml Vial) 100 mcg STK-MED ONCE IV Last administered on 08/10/16 13:02; Start 08/10/16 at 13:02; Stop 08/10/16 at 13:03; Status DC Midazolam HCl (Versed) 5 mg STK-MED ONCE IV Last administered on 08/10/16 13: 03; Start 08/10/16 at 13:03; Stop 08/10/16 at 13:04; Status DC Midazolam HCl (Versed) 5 mg STK-MED ONCE IV Last administered on 08/10/16 13: 15; Start 08/10/16 at 13:15; Stop 08/10/16 at 13:19; Status DC Fentanyl Citrate (Fentanyl 2ml Vial) 100 mcg STK-MED ONCE IV Last administered on 08/10/16 13:17; Start 08/10/16 at 13:17; Stop 08/10/16 at 13:19; Status DC Pantoprazole Sodium 80 mg/ Sodium Chloride 100 ml @ 10 mls/hr Q10H IV Last administered on 08/18/16 04:23; Start 08/10/16 at 13:45 Epinephrine HCl (Epinephrine Syringe) 1 mg STK-MED ONCE .ROUTE ; Start 08/10/16 at 13:42; Stop 08/10/16 at 13:43; Status DC Potassium Chloride (Klor-Con) 40 meq 1X ONCE PO Last administered on 08/13/16 09:42; Start 08/13/16 at 08:45; Stop 08/13/16 at 08:46; Status DC Docusate Sodium (Colace) 100 mg PRN DAILY PRN PO CONSTIPATION Last administered on 08/13/16 09:42; Start 08/13/16 at 08:45 Escitalopram Oxalate (Lexapro) 5 mg DAILY PO Last administered on 08/18/16 08: 37; Start 08/13/16 at 09:00 Acetaminophen (Tylenol) 650 mg PRN Q6HRS PRN PO FEVER; Start 08/13/16 at 12:45 Ondansetron HCl (Zofran) 4 mg PRN Q6HRS PRN IV NAUSEA/VOMITING; Start 08/13/16 at 12:45 Metoprolol Tartrate (Lopressor) 12.5 mg BID PO Last administered on 08/18/16 08 :38; Start 08/13/16 at 15:00 Midazolam HCl (Versed) 2 mg PRN 1X PRN IV PRIOR TO PROCEDURE; Start 08/14/16 at 15:00; Stop 08/14/16 at 20:00; Status DC Fentanyl Citrate (Fentanyl 2ml Vial) 25 mcg PRN Q5MIN PRN IV X 2 DOSES FOR PAIN ; Start 08/14/16 at 15:00; Stop 08/15/16 at 14:59; Status DC Fentanyl Citrate (Fentanyl 2ml Vial) 50 mcg PRN Q5MIN PRN IV X 2 DOSES FOR PAIN ; Start 08/14/16 at 15:00; Stop 08/14/16 at 20:00; Status DC Lidocaine HCl 2 ml 1X PRN PRN ID IV START; Start 08/14/16 at 15:00; Stop at 20:00; Status DC Propofol 20 ml @ As Directed STK-MED ONCE IV ; Start 08/14/16 at 17:32; Stop 08/14 at 17:33; Status DC Lidocaine HCl (Lidocaine Pf 2% Vial) 5 ml STK-MED ONCE .ROUTE ; Start 08/14/16 at 17:32; Stop 08/14/16 at 17:33; Status DC Potassium Chloride (Klor-Con) 40 meq 1X ONCE PO Last administered on 08/16/16 08:53; Start 08/16/16 at 08:30; Stop 08/16/16 at 08:31; Status DC Ceftriaxone Sodium 1 gm/ Sodium Chloride 50 ml @ 100 mls/hr Q24H IV Last administered on 08/17/16 16:52; Start 08/16/16 at 17:00 Potassium Chloride (Klor-Con) 20 meq 1X ONCE PO Last administered on 08/17/16 13:05; Start 08/17/16 at 12:30; Stop 08/17/16 at 12:31; Status DC Active Scripts Active Docusate Sodium 100 Mg Capsule 100 Mg PO PRN DAILY PRN Pantoprazole Sodium 40 Mg Tablet.dr 40 Mg PO BIDAC Reported Nifedipine Er (Nifedipine) 30 Mg Tab.er.24 30 Mg PO DAILY Loratadine 10 Mg Tablet 10 Mg PO DAILY Lexapro (Escitalopram Oxalate) 5 Mg Tablet 5 Mg PO DAILY Vitals/I & O Vital Sign - Last 24 Hours 08/17/16 08/17/16 08/17/16 08/17/16 15:00 19:00 19:05 20:40 Temp 98.7 98.4 98.7 98.4 Pulse 92 87 92 Resp 19 B/P (MAP) 113/63 (80) 129/61 (83) 129/61 Pulse Ox 98 99 O2 Delivery Room Air Room Air Room Air 08/17/16 08/18/16 08/18/16 08/18/16 23:03 03:16 07:50 07:56 Temp 99.1 98.9 97.6 99.1 98.9 97.6 Pulse 83 87 81 Resp 19 16 18 B/P (MAP) 121/54 (76) 126/62 (83) 113/52 (72) Pulse Ox 98 97 97 O2 Delivery Room Air Room Air Room Air Room Air O2 Flow Rate 2.0 08/18/16 08/18/16 08:38 10:47 Temp 97.6 97.6 Pulse 81 86 Resp 18 B/P (MAP) 113/52 117/66 (83) Pulse Ox 97 O2 Delivery Room Air Intake and Output 08/17/16 08/17/16 08/18/16 15:00 23:00 07:00 Intake Total 370 ml 60 ml Balance 370 ml 60 ml Problem List Problems Medical Problems: (1) GIB (gastrointestinal bleeding) Status: Acute (2) Upper GI bleed Status: Acute Assessment 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 Plan of Care: Continue current Tx, Mgmt Plan of Care Note Maybe try pureed tomorrow? Would not go above soft diet and maintain low- residue/fiber due to stricture. PO PPI; use Prevacid solutabs to be sure exits stomach. MAINE HENRIQUEZ MD August 18, 2016 14:08
[2016-08-18 14:56] VITALS: BP 90/53
[2016-08-18 16:09] LABS: BASO # 0.1 x10^3/uL (0.0-0.2); BASO % 1 % (0-3); EOS % 1 % (0-3); HEMATOCRIT 24.7 % (36.0-47.0); HEMOGLOBIN 8.3 g/dL (12.0-15.5); LYMPH # 1.1 x10^3/uL (1.0-4.8); LYMPH % 9 % (24-48); MEAN CORPUSCULAR HEMOGLOBIN 30 pg (25-35); MEAN CORPUSCULAR HGB CONC 34 g/dL (31-37); MEAN CORPUSCULAR VOLUME 89 fL (79-100); MONO % 10 % (0-9); NEUT % 80 % (31-73); PLATELET COUNT 265 x10^3/uL (140-400); RED BLOOD COUNT 2.79 x10^6/uL (3.50-5.40); RED CELL DISTRIBUTION WIDTH 18.2 % (11.5-14.5); WHITE BLOOD COUNT 13.1 x10^3/uL (4.0-11.0)
[2016-08-18] MEDS: LANSOPRAZOLE 30 MG TAB.RAP.DR PO SCH (17:21)
[2016-08-18 19:00] VITALS: BP 103/49
[2016-08-18 22:57] VITALS: BP 116/54
[2016-08-19 03:10] VITALS: BP 120/50
[2016-08-19] MEDS: LANSOPRAZOLE 30 MG TAB.RAP.DR PO SCH (06:36)
[2016-08-19 07:00] VITALS: BP 129/60
[2016-08-19] MEDS: METOPROLOL TART IMMED RELEASE 25 MG TABLET. PO SCH (08:54)
[2016-08-19] MEDS: ESCITALOPRAM 5 MG TABLET. PO SCH (08:54)
--- NOTE | 2016-08-19 09:07 | PDOC ---
PROGRESS NOTES Chief Complaint Chief Complaint UGIB ASSESSMENT AND PLAN: 1. Duodenal GIB, acute : s/p dual scopes 07/11 and 07/12, with cautery and epi embolization 08/10. seems to be stabilizing by H/H. on PPI bid 2. Anemia: acute blood loss; s/p PRBC x1 on 08/18 monitor. 3. Nutrition: flull liquids, but PO intake poor. encourage increase 4. Dehydration: resolved 5. GELA: vasomotor. resolved 6. Uremia: 2/2 UGIB. resolved 7. Hypokalemia: resolved 8. HTN: on BB here, replacing nifedipine at home. monitor HR 9. Dementia: moderate 10. Dispo: to [facility] History of Present Illness History of Present Illness feels ok. denies nausea or vomiting Vitals Vitals Vital Signs Date Time Temp Pulse Resp B/P (MAP) Pulse Ox O2 Delivery O2 Flow Rate FiO2 08/19/16 08:54 82 129/60 08/19/16 08:00 Room Air 08/19/16 07:00 99.1 18 96 99.1 08/18/16 07:50 2.0 Physical Exam General: Alert, Oriented X3, Cooperative, No acute distress Heart: Regular rate, No murmurs Lungs: Clear Abdomen: Soft, No tenderness Extremities: No clubbing, No cyanosis Skin: No rashes Labs LABS Laboratory Tests Test 08/18/16 15:55 White Blood Count 13.1 x10^3/uL (4.0-11.0) Red Blood Count 2.79 x10^6/uL (3.50-5.40) Hemoglobin 8.3 g/dL (12.0-15.5) Hematocrit 24.7 % (36.0-47.0) Mean Corpuscular Volume 89 fL (79-100) Mean Corpuscular Hemoglobin 30 pg (25-35) Mean Corpuscular Hemoglobin Concent 34 g/dL (31-37) Red Cell Distribution Width 18.2 % (11.5-14.5) Platelet Count 265 x10^3/uL (140-400) Neutrophils (%) (Auto) 80 % (31-73) Lymphocytes (%) (Auto) 9 % (24-48) Monocytes (%) (Auto) 10 % (0-9) Eosinophils (%) (Auto) 1 % (0-3) Basophils (%) (Auto) 1 % (0-3) Neutrophils # (Auto) 10.4 x10^3uL (1.8-7.7) Lymphocytes # (Auto) 1.1 x10^3/uL (1.0-4.8) Monocytes # (Auto) 1.3 x10^3/uL (0.0-1.1) Eosinophils # (Auto) 0.2 x10^3/uL (0.0-0.7) Basophils # (Auto) 0.1 x10^3/uL (0.0-0.2) Nutrition Consultation Dietary Evaluation: Recommendations by RD: Increase Calorie Intake, Protein supplementation Comments: -Pt agrees to the strawberry boost plus protein supplement if it is mixed with icecream- will send BID (Boost is 360 calories/14 g protein per serving) -Send vanilla boost pudding BID (240 calories/7 g protein per serving) Expected Outcomes/Goals: diet advancement Interpretation of weight loss: >7.5% in 3 months Malnutrition Findings: Food and Nutrition Intake (Mod: <75% est energy req 7days Body Fat Depletion (Non Severe: Mild Depletion 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
[2016-08-19 10:32] VITALS: BP 114/55
--- NOTE | 2016-08-19 10:52 | PDOC ---
G I PROGRESS NOTE Subjective No complaints. Tolerating current diet. Physical Exam Lungs clear. RRR Abdomen soft, not tender nor distended. Review of Relevant I have reviewed the following items jose luis (where applicable) has been applied. Labs Laboratory Tests Test 08/18/16 03:12 08/18/16 15:55 White Blood Count 11.1 x10^3/uL (4.0-11.0) 13.1 x10^3/uL (4.0-11.0) Red Blood Count 2.49 x10^6/uL (3.50-5.40) 2.79 x10^6/uL (3.50-5.40) Hemoglobin 7.4 g/dL (12.0-15.5) 8.3 g/dL (12.0-15.5) Hematocrit 22.0 % (36.0-47.0) 24.7 % (36.0-47.0) Mean Corpuscular Volume 88 fL (79-100) 89 fL (79-100) Mean Corpuscular Hemoglobin 30 pg (25-35) 30 pg (25-35) Mean Corpuscular Hemoglobin Concent 34 g/dL (31-37) 34 g/dL (31-37) Red Cell Distribution Width 18.0 % (11.5-14.5) 18.2 % (11.5-14.5) Platelet Count 220 x10^3/uL (140-400) 265 x10^3/uL (140-400) Neutrophils (%) (Auto) 76 % (31-73) 80 % (31-73) Lymphocytes (%) (Auto) 11 % (24-48) 9 % (24-48) Monocytes (%) (Auto) 11 % (0-9) 10 % (0-9) Eosinophils (%) (Auto) 1 % (0-3) 1 % (0-3) Basophils (%) (Auto) 0 % (0-3) 1 % (0-3) Neutrophils # (Auto) 8.5 x10^3uL (1.8-7.7) 10.4 x10^3uL (1.8-7.7) Lymphocytes # (Auto) 1.2 x10^3/uL (1.0-4.8) 1.1 x10^3/uL (1.0-4.8) Monocytes # (Auto) 1.2 x10^3/uL (0.0-1.1) 1.3 x10^3/uL (0.0-1.1) Eosinophils # (Auto) 0.1 x10^3/uL (0.0-0.7) 0.2 x10^3/uL (0.0-0.7) Basophils # (Auto) 0.0 x10^3/uL (0.0-0.2) 0.1 x10^3/uL (0.0-0.2) Sodium Level 137 mmol/L (136-145) Potassium Level 3.8 mmol/L (3.5-5.1) Chloride Level 104 mmol/L (98-107) Carbon Dioxide Level 26 mmol/L (21-32) Anion Gap 7 (6-14) Blood Urea Nitrogen 16 mg/dL (7-20) Creatinine 0.9 mg/dL (0.6-1.0) Estimated GFR (Cockcroft-Gault) 59.9 Glucose Level 97 mg/dL (70-99) Calcium Level 8.4 mg/dL (8.5-10.1) Laboratory Tests Test 08/18/16 15:55 White Blood Count 13.1 x10^3/uL (4.0-11.0) Red Blood Count 2.79 x10^6/uL (3.50-5.40) Hemoglobin 8.3 g/dL (12.0-15.5) Hematocrit 24.7 % (36.0-47.0) Mean Corpuscular Volume 89 fL (79-100) Mean Corpuscular Hemoglobin 30 pg (25-35) Mean Corpuscular Hemoglobin Concent 34 g/dL (31-37) Red Cell Distribution Width 18.2 % (11.5-14.5) Platelet Count 265 x10^3/uL (140-400) Neutrophils (%) (Auto) 80 % (31-73) Lymphocytes (%) (Auto) 9 % (24-48) Monocytes (%) (Auto) 10 % (0-9) Eosinophils (%) (Auto) 1 % (0-3) Basophils (%) (Auto) 1 % (0-3) Neutrophils # (Auto) 10.4 x10^3uL (1.8-7.7) Lymphocytes # (Auto) 1.1 x10^3/uL (1.0-4.8) Monocytes # (Auto) 1.3 x10^3/uL (0.0-1.1) Eosinophils # (Auto) 0.2 x10^3/uL (0.0-0.7) Basophils # (Auto) 0.1 x10^3/uL (0.0-0.2) Microbiology 08/16/16 Urine Culture - Final, Complete 08/16/16 Urine Culture Result 1 (ANDRA) - Final, Complete 08/16/16 Antimicrobic Susceptibility - Final, Complete Medications Current Medications Pantoprazole Sodium (Protonix Vial) 40 mg 1X ONCE IVP Last administered on 10:22; Start 08/10/16 at 10:00; Stop 08/10/16 at 10:08; Status DC Ondansetron HCl (Zofran) 4 mg 1X ONCE IV Last administered on 08/10/16 10:22 ; Start 08/10/16 at 10:00; Stop 08/10/16 at 10:08; Status DC Fentanyl Citrate (Fentanyl 2ml Vial) 25 mcg 1X ONCE IV Last administered on 10:23; Start 08/10/16 at 10:00; Stop 08/10/16 at 10:08; Status DC Sodium Chloride 500 ml @ 500 mls/hr 1X ONCE IV Last administered on 10:22; Start 08/10/16 at 10:30; Stop 08/10/16 at 11:29; Status DC Ondansetron HCl (Zofran) 4 mg PRN Q8HRS PRN IV NAUSEA/VOMITING; Start 08/10/16 at 11:00; Stop 08/11/16 at 10:59; Status DC Fentanyl Citrate (Fentanyl 2ml Vial) 50 mcg PRN Q2HR PRN IV PAIN; Start at 11:00; Stop 08/11/16 at 10:59; Status DC Acetaminophen (Tylenol) 650 mg PRN Q4HRS PRN PO FEVER; Start 08/10/16 at 11:00 ; Stop 08/11/16 at 10:59; Status DC Potassium Chloride/Dextrose/ Sod Cl 1,000 ml @ 75 mls/hr 1X ONCE IV Last administered on 08/10/16 11:51; Start 08/10/16 at 11:00; Stop 08/11/16 at 00:19 ; Status DC Metoclopramide HCl (Reglan) 5 mg 1X STAT IV Last administered on 08/10/16 12: 22; Start 08/10/16 at 11:10; Stop 08/10/16 at 11:29; Status DC Erythromycin Lactobionate 250 mg/Sodium Chloride 100 ml @ 100 mls/hr ONCE STAT IV Last administered on 08/10/16 12:23; Start 08/10/16 at 11:11; Stop at 12:10; Status DC Midazolam HCl (Versed) 5 mg STK-MED ONCE .ROUTE ; Start 08/10/16 at 12:38; Stop 08/10/16 at 12:39; Status DC Midazolam HCl (Versed) 5 mg STK-MED ONCE IV Last administered on 08/10/16 12: 59; Start 08/10/16 at 12:59; Stop 08/10/16 at 13:03; Status DC Fentanyl Citrate (Fentanyl 2ml Vial) 100 mcg STK-MED ONCE IV Last administered on 08/10/16 13:00; Start 08/10/16 at 13:00; Stop 08/10/16 at 13:03; Status DC Midazolam HCl (Versed) 5 mg STK-MED ONCE IV Last administered on 08/10/16 13: 01; Start 08/10/16 at 13:01; Stop 08/10/16 at 13:03; Status DC Fentanyl Citrate (Fentanyl 2ml Vial) 100 mcg STK-MED ONCE IV Last administered on 08/10/16 13:02; Start 08/10/16 at 13:02; Stop 08/10/16 at 13:03; Status DC Midazolam HCl (Versed) 5 mg STK-MED ONCE IV Last administered on 08/10/16 13: 03; Start 08/10/16 at 13:03; Stop 08/10/16 at 13:04; Status DC Midazolam HCl (Versed) 5 mg STK-MED ONCE IV Last administered on 08/10/16 13: 15; Start 08/10/16 at 13:15; Stop 08/10/16 at 13:19; Status DC Fentanyl Citrate (Fentanyl 2ml Vial) 100 mcg STK-MED ONCE IV Last administered on 08/10/16 13:17; Start 08/10/16 at 13:17; Stop 08/10/16 at 13:19; Status DC Pantoprazole Sodium 80 mg/ Sodium Chloride 100 ml @ 10 mls/hr Q10H IV Last administered on 08/18/16 04:23; Start 08/10/16 at 13:45; Stop 08/18/16 at 14:10; Status DC Epinephrine HCl (Epinephrine Syringe) 1 mg STK-MED ONCE .ROUTE ; Start 08/10/16 at 13:42; Stop 08/10/16 at 13:43; Status DC Potassium Chloride (Klor-Con) 40 meq 1X ONCE PO Last administered on 08/13/16 09:42; Start 08/13/16 at 08:45; Stop 08/13/16 at 08:46; Status DC Docusate Sodium (Colace) 100 mg PRN DAILY PRN PO CONSTIPATION Last administered on 08/13/16 09:42; Start 08/13/16 at 08:45 Escitalopram Oxalate (Lexapro) 5 mg DAILY PO Last administered on 08/19/16 08: 54; Start 08/13/16 at 09:00 Acetaminophen (Tylenol) 650 mg PRN Q6HRS PRN PO FEVER; Start 08/13/16 at 12:45 Ondansetron HCl (Zofran) 4 mg PRN Q6HRS PRN IV NAUSEA/VOMITING; Start 08/13/16 at 12:45 Metoprolol Tartrate (Lopressor) 12.5 mg BID PO Last administered on 08/19/16 08 :54; Start 08/13/16 at 15:00 Midazolam HCl (Versed) 2 mg PRN 1X PRN IV PRIOR TO PROCEDURE; Start 08/14/16 at 15:00; Stop 08/14/16 at 20:00; Status DC Fentanyl Citrate (Fentanyl 2ml Vial) 25 mcg PRN Q5MIN PRN IV X 2 DOSES FOR PAIN ; Start 08/14/16 at 15:00; Stop 08/15/16 at 14:59; Status DC Fentanyl Citrate (Fentanyl 2ml Vial) 50 mcg PRN Q5MIN PRN IV X 2 DOSES FOR PAIN ; Start 08/14/16 at 15:00; Stop 08/14/16 at 20:00; Status DC Lidocaine HCl 2 ml 1X PRN PRN ID IV START; Start 08/14/16 at 15:00; Stop at 20:00; Status DC Propofol 20 ml @ As Directed STK-MED ONCE IV ; Start 08/14/16 at 17:32; Stop 08/14 at 17:33; Status DC Lidocaine HCl (Lidocaine Pf 2% Vial) 5 ml STK-MED ONCE .ROUTE ; Start 08/14/16 at 17:32; Stop 08/14/16 at 17:33; Status DC Potassium Chloride (Klor-Con) 40 meq 1X ONCE PO Last administered on 08/16/16 08:53; Start 08/16/16 at 08:30; Stop 08/16/16 at 08:31; Status DC Ceftriaxone Sodium 1 gm/ Sodium Chloride 50 ml @ 100 mls/hr Q24H IV Last administered on 08/18/16 17:21; Start 08/16/16 at 17:00 Potassium Chloride (Klor-Con) 20 meq 1X ONCE PO Last administered on 08/17/16 13:05; Start 08/17/16 at 12:30; Stop 08/17/16 at 12:31; Status DC Lansoprazole (Prevacid) 30 mg BIDBFRMEAL PO Last administered on 08/19/16 06:36 ; Start 08/18/16 at 16:30 Active Scripts Active Docusate Sodium 100 Mg Capsule 100 Mg PO PRN DAILY PRN Pantoprazole Sodium 40 Mg Tablet.dr 40 Mg PO BIDAC Reported Nifedipine Er (Nifedipine) 30 Mg Tab.er.24 30 Mg PO DAILY Loratadine 10 Mg Tablet 10 Mg PO DAILY Lexapro (Escitalopram Oxalate) 5 Mg Tablet 5 Mg PO DAILY Vitals/I & O Vital Sign - Last 24 Hours 08/18/16 08/18/16 08/18/16 08/18/16 14:56 19:00 19:10 20:38 Temp 98.8 98.4 98.8 98.4 Pulse 104 102 122 Resp 17 18 B/P (MAP) 90/53 (65) 103/49 (67) 103/49 Pulse Ox 97 99 O2 Delivery Room Air Room Air Room Air 08/18/16 08/19/16 08/19/16 08/19/16 22:57 03:10 07:00 08:00 Temp 99.6 99.3 99.1 99.6 99.3 99.1 Pulse 87 78 78 Resp 18 16 18 B/P (MAP) 116/54 (74) 120/50 (73) 129/60 (83) Pulse Ox 98 97 96 O2 Delivery Room Air Room Air Room Air Room Air 08/19/16 08/19/16 08:54 10:32 Temp 98.4 98.4 Pulse 82 73 Resp 20 B/P (MAP) 129/60 114/55 (74) Pulse Ox 97 O2 Delivery Room Air Intake and Output 08/18/16 08/18/16 08/19/16 15:00 23:00 07:00 Intake Total 50 ml 0 ml 200 ml Balance 50 ml 0 ml 200 ml Problem List Problems Medical Problems: (1) GIB (gastrointestinal bleeding) Status: Acute (2) Upper GI bleed Status: Acute Assessment Seems no bleeding. Plan of Care: Continue current Tx, Mgmt Plan of Care Note Home OK with me. Would leave on PPI chronically; would stick to solutabs or suspensions so sure gets out of stomach. NO NSAIDS!!! MAINE HENRIQUEZ MD August 19, 2016 10:52
--- NOTE | 2016-08-23 01:52 | DS ---
DATE OF DISCHARGE: 08/19/2016 CHIEF COMPLAINT: Upper GI bleed. HISTORY OF PRESENT ILLNESS: The patient is an 81-year-old woman who presented to the Emergency Room with hematemesis and severe anemia. She was promptly admitted, received scopes upper and lower with a finding of duodenal bleeding ulcer, which was cauterized and embolized on 08/10. Hemoglobin was supported with multiple transfusions. With ongoing drift, hospitalization was prolonged. Her last transfusion of PRBC x 1 was given on 08/18 with appropriate recovery and stable hemoglobin. She was therefore deemed stable for discharge on 08/18/2016 to a alf. DISCHARGE EXAMINATION: Please refer to note from same day. DISCHARGE DIAGNOSES: 1. Duodenal ulcer. 2. Blood loss anemia. DISCHARGE DISPOSITION: To alf. DISCHARGE CONDITION: Improved. DISCHARGE MEDICATIONS: Please refer to MAR. DISCHARGE INSTRUCTIONS: The patient will follow up with PCP upon return to home. At the alf, her hemoglobin will be monitored closely. ANNY KILLIAN MD DR: SHAMEKA/nts JOB#: [id number] / [id number] RICHARD Cruz MDD
== END 2016-08-19 15:57 | DRG 871 ==
LOC: ER 09:49 → 4 NORTH 10:30 → 1 WEST ICU 11:14 → 5 NORTH 08-12 10:29 → 1 WEST ICU 08-13 22:52 → 2 NORTH 08-16 11:30
PROVIDERS: ADMIT Internal Medicine; ATTEND Internal Medicine
PROC: 3E0G8GC Introduction of Other Therapeutic Substance into Upper GI, Via Natural or Artificial Opening Endoscopic (ICD-10-PCS; 2016-08-10)
PROC: 0W3P8ZZ Control Bleeding in Gastrointestinal Tract, Via Natural or Artificial Opening Endoscopic (ICD-10-PCS; principal; 2016-08-10 12:44)
PROC: 30233N1 Transfusion of Nonautologous Red Blood Cells into Peripheral Vein, Percutaneous Approach (ICD-10-PCS; 2016-08-14)
PROC: 0DJ08ZZ Inspection of Upper Intestinal Tract, Via Natural or Artificial Opening Endoscopic (ICD-10-PCS; 2016-08-14)
DX: A41.9 Sepsis, unspecified organism (principal); K26.0 Acute duodenal ulcer with hemorrhage; N17.0 Acute kidney failure with tubular necrosis; N39.0 Urinary tract infection, site not specified; D62 Acute posthemorrhagic anemia; E86.0 Dehydration; F03.90 Unspecified dementia, unspecified severity, without behavioral disturbance, psychotic disturbance, mood disturbance, and anxiety; F80.81 Childhood onset fluency disorder; I10 Essential (primary) hypertension; K29.70 Gastritis, unspecified, without bleeding; Z87.11 Personal history of peptic ulcer disease; E87.6 Hypokalemia; Z90.49 Acquired absence of other specified parts of digestive tract; K21.0 Gastro-esophageal reflux disease with esophagitis
CPT/HCPCS: 36415; 51701; 78278; 80048; 80076; 81001; 82274; 83605; 85007; 85027; 85610; 86850; 86900; 86901; 86920; 87086; 87186; 87641; 93005; 96361; 96374; 96375; 97168; A9560; C9113; J0696; J1364; J2250; J2405; J2704; J2765; J3010; J7040; J7120; P9016; 97110; 97116; 97530; 97535; 99285-25